=== PATIENT | male | born 1950 | race Caucasian/White ===

== ENCOUNTER 2024-01-10 08:45 | Outpatient (AMB) | payer MEDICARE, OTHER, SELFPAY ==
--- NOTE | 2024-01-10 08:47 | MHC.OFFVIS ---
Vital Signs 01/10/24 09:08 Height 6 ft 4 in Weight 250 lb BMI 30.4 BP 122/76 Blood Pressure Location Lt brachial Position Sitting Respiration 16 Pulse 104 H Pulse Source Pulse Oximeter Pulse Oximetry (%) 95 Oxygen Delivery Method Room Air Intake Visit Reasons: Chronic pain,postlaminectomy, CPRS infusion pump Intake Note: Patient comes in for initial visit was referred by primary care. Reports pain 03/20. Allergies No Known Allergies Allergy (Verified 01/10/24 09:07) HPI Comments Details: Chris is very pleasant 73 years old gentleman who presents in my office with complains on pain in lower back and sensation of burning in bilateral lower extremities. She reports that pain in bilateral lower extremity started in 2018 after a chiropractor perform some sort of manipulation on his back. Even before that he was suffering from postlaminectomy syndrome which was treated in [place] with intrathecal pain pump. His pump is 6 years old and due to be replaced in fall of 2023. He reports that he can not sleep normally can not do activities of daily living can not take care of himself can not function normally he is retired individual. He reports that he needs walker occasionally for ambulation. He reports that most comfortable position for him is in the left hand side in the bed and he also reports that when he is sitting or standing his pain in bilateral lower extremities and unbearable.He currently onadmixture of Morphine 10 mg/ ml and 30 mg of bupivacaine, as well as clonidine 650 mcg per ml. He receives continuous infusion of morphine 1.835 mg per day and corresponding doses of the clonidine and bupivacaine. He does not have PTM device. He reports that PTM device make him ?addicted to morphine ?. He reports his pain in terms of tissue damage as spreading radiating in piercing sensation. Apparently he had multiple images of his lumbar spine done in [facility] last MRI was done in 2014. He reports that he is taking herbal or homeopathic treatments for his pain. He received multiple nerve blocks epidurals and apparently he had 2 trials of spinal cord stimulator with [facility] pain management. He reports past medical history of peripheral arterial disease with status post stent in the left femoral artery, he has prostate problem arthritis. His past surgical history significant for left total knee replacement in 2008. He had surgery for back fusion in 2009 and he reported cranial surgery in 2008. He is currently taking Ambien diazepam bethanechol and lamotrigine. He denies smoking cigarettes admits occasional rare take of alcohol drinks decaffeinated coffee and denies recreational drugs. [facility] Medical History (Updated 01/10/24 @ 09:40 by Surjit Godoy MD) Opioid dependence, uncomplicated Complex regional pain syndrome i of lower limb, bilateral Insomnia, unspecified Chronic pain disorder Postlaminectomy syndrome, not elsewhere classified Review of Systems Const Denies chills and Denies fever(s) ENT Reports Normal hearing present, Denies vertigo and Denies dizziness Card Denies chest pain, Denies chest pain at rest, Denies chest pain with activity, Reports diaphoresis, Denies syncope, Denies rapid heart rate, Denies pedal edema and Denies edema Resp Denies chest congestion, Denies cough, Denies hemoptysis, Denies excessive phlegm production, Denies pain on inspiration and Denies pain with cough GI Denies abdominal pain, Denies belching, Denies melena and Denies bloating Denies urinary incontinence Musc Denies as per HPI, Denies back pain and Denies tingling Neuro Reports Normal hearing present, Denies Abnormal speech present, Denies confusion, Denies vertigo, Denies dizziness, Denies syncope, Denies lack of coordination, Denies Sensory deficit (Neuro) and Denies tingling Psych Denies no additional complaints, Denies confusion and Denies depression Physical Exam Vital Signs: Last Vital Signs Pulse 104 H 01/10/24 09:08 Resp 16 01/10/24 09:08 BP 122/76 01/10/24 09:08 Pulse Ox 95 01/10/24 09:08 Oxygen Delivery Method Room Air 01/10/24 09:08 BMI result Body Mass Index 30.4 Const General: No confusion Orientation/consciousness: No confusion Eyes General: appearance normal, both eyes and all related structures Pupils: Equal, round and reactive pupils present EOM: EOMs intact bilaterally Neck Neck: Yes full ROM Chest Chest palpation & inspection: normal inspection of the chest Resp Effort & Inspection: normal respiratory effort, able to speak in complete sentences, normal respiratory pattern, no audible wheezes and no cough Cardio Jugular venous distension: no JVD GI Inspection: Yes normal to inspection Back/Spine/Pelvis Other: He has very well-healed scar in inspection in the projection of the L4-5 and S1 vertebra spinous processes. He also has scar in the left lower abdomen in Pfannenstiel fashion evidence of 2nd fusion. He is in no obvious mild distress today he prefers to positioned himself flat on the examination table during the conversation. No tenderness on palpation in paraspinal spinal region lumbar spine. Mild tenderness on palpation in projection of the sacral bone. SLR is negative bilaterally. Asaf's test is negative bilaterally. Valsalva maneuver does not aggravate his pain. He denies incontinence with urine or stool. He denies urinary retention Neuro General: No confusion Cranial nerves: Yes Equal, round and reactive pupils present and Yes Normal hearing present Speech: No Abnormal speech present Gait exam (Neuro): Normal gait present Motor exam (neuro): 5/5 motor strength present throughout Sensory Exam: No Sensory deficit (Neuro) Extrem General: No pedal edema Psych Speech and movement: Normal speech and movement present Affect: normal affect Attitude: cooperative Thought process: Normal thought process present Thought content: Normal thought content present Insight: Good insight present (Psych) Judgement: Good judgement present (Psych) Assessment & Plan Assessment & Plan (1) Postlaminectomy syndrome: Code(s): M96.1 - Postlaminectomy syndrome, not elsewhere classified Category: Medical (2) Chronic pain disorder: Code(s): G89.4 - Chronic pain syndrome Category: Medical (3) Implantable intrathecal infusion pump present: Code(s): Z96.89 - Presence of other specified functional implants Category: Medical Plan The patient will be scheduled for the next pump refill. He will be scheduled on 28 of February. The pump is the end of life and he needs to be scheduled for pump replacement. I will see this patient on 28 of February and after that as needed. I will schedule him for pump replacement at the end of April. Coding Level of Care Code New Pt Level 3 (80320) Diagnoses Postlaminectomy syndrome M96.1 Chronic pain disorder G89.4 Implantable intrathecal infusion pump present Z96.89
[2024-01-10 09:08] VITALS: BP 122/76; PULSE 104; RESP 16; O2SAT 95; BMI 30.4
== END 2024-01-10 09:20 | disposition home or self-care (01) ==
PROVIDERS: PCP Internal Medicine; Visit Provider Anesthesiology
DX: M96.1 Postlaminectomy syndrome, not elsewhere classified (principal); G89.4 Chronic pain syndrome; Z96.89 Presence of other specified functional implants
CPT/HCPCS: 99203

== ENCOUNTER → 2024-01-10 08:45 | Outpatient (BNVA) | payer MEDICARE, OTHER, SELFPAY | PROVIDERS: PCP Internal Medicine; Visit Provider Anesthesiology | DX: M96.1 Postlaminectomy syndrome, not elsewhere classified (principal); G89.4 Chronic pain syndrome; Z96.89 Presence of other specified functional implants | CPT/HCPCS: 99202 ==

== ENCOUNTER 2024-02-29 08:33 | Outpatient (AMB) | payer MEDICARE, OTHER, SELFPAY ==
--- NOTE | 2024-02-29 08:34 | A.OFFVIS_ITS ---
Vital Signs 02/29/24 09:15 Height 6 ft 4 in Weight 242 lb 8 oz BMI 29.5 BP 116/68 Blood Pressure Location Lt brachial Position Sitting Respiration 16 Pulse 82 Pulse Source Pulse Oximeter Pulse Oximetry (%) 97 Oxygen Delivery Method Room Air Intake Visit Reasons: ITDD Pump Refill Intake Note: Patient comes in for intrathecal medication refill. Reports pain 03/20. Allergies No Known Allergies Allergy (Verified 02/29/24 09:16) HPI Comments Details: Chris is back for intrathecal pain pump refill. The pump needs to be removed and replaced in June. His next pump refill is 05/27/2024. On that visit we need to schedule him for the removal and replacement of the pump. His medication is morphine 10 milligrams/mL bupivacaine 30 milligrams/mL and clonidine 650 mcg per mL. We observed small discrepancy 2 mL between the medication left in the reservoir and medication would be left by pump calculations. I would need to schedule him for a dye study before performing pump replacement and refill very pleasant 73 years old gentleman who presents in my office with complains on pain in lower back and sensation of burning in bilateral lower extremities. She reports that pain in bilateral lower extremity started in 2017 after a chi ropractor perform some sort of manipulation on his back. Even before that he was suffering from postlaminectomy syndrome which was treated in [place] with intrathecal pain pump. His pump is 6 years old and due to be replaced in fall of 2023. He reports that he can not sleep normally can not do activities of daily living can not take care of himself can not function normally he is retired individual. He reports that he needs walker occasionally for ambulation. He reports that most comfortable position for him is in the left hand side in the bed and he also reports that when he is sitting or standing his pain in bilateral lower extremities and unbearable.He currently onadmixture of Morphine 10 mg/ ml and 30 mg of bupivacaine, as well as clonidine 650 mcg per ml. He receives continuous infusion of morphine 1.835 mg per day and corresponding doses of the clonidine and bupivacaine. He does not have PTM device. He reports that PTM device make him ?addicted to morphine ?. He repor ts his pain in terms of tissue damage as spreading radiating in piercing sensation. Apparently he had multiple images of his lumbar spine done in [facility] last MRI was done in 2014. He reports that he is taking herbal or homeopathic treatments for his pain. He received multiple nerve blocks epidurals and apparently he had 2 trials of spinal cord stimulator with [facility] pain management. He reports past medical history of peripheral arterial disease with status post stent in the left femoral artery, he has prostate problem arthritis. His past surgical history significant for left total knee replacement in 2008. He had surgery for back fusion in 2009 and he reported cranial surgery in 2008. He is currently taking Ambien diazepam bethanechol and lamotrigine. He denies smoking cigarettes admits occasional rare take of alcohol drinks decaffeinated coffee and denies recreational drugs. [facility] Medical History (Updated 01/10/24 @ 09:40 by Surjit Godoy MD) Opioid dependence, uncomplicated Complex regional pain syndrome i of lower limb, bilateral Insomnia, unspecified Chronic pain disorder Postlaminectomy syndrome, not elsewhere classified Review of Systems Const All systems reviewed & are unremarkable except as noted in HPI and below ENT Reports Normal hearing present Neuro Reports Normal hearing present, Denies Abnormal speech present, Denies confusion and Denies Sensory deficit (Neuro) Psych Denies confusion Physical Exam Vital Signs: Last Vital Signs Pulse 82 02/29/24 09:15 Resp 16 02/29/24 09:15 BP 116/68 02/29/24 09:15 Pulse Ox 97 02/29/24 09:15 Oxygen Delivery Method Room Air 02/29/24 09:15 BMI result Body Mass Index 29.5 Const General: No confusion Orientation/consciousness: No confusion Eyes General: appearance normal, both eyes and all related structures Pupils: Equal, round and reactive pupils present EOM: EOMs intact bilaterally Neck Neck: Yes full ROM Chest Chest palpation & inspection: normal inspection of the chest Resp Effort & Inspection: normal respiratory effort, able to speak in complete sentences, normal respiratory pattern, no audible wheezes and no cough Cardio Jugular venous distension: no JVD GI Inspection: Yes normal to inspection Back/Spine/Pelvis Other: He has very well-healed scar in inspection in the projection of the L4-5 and S1 vertebra spinous processes. He also has scar in the left lower abdomen in Pfannenstiel fashion evidence of 2nd fusion. He is in no obvious mild distress today he prefers to positioned himself flat on the examination table during the conversation. No tenderness on palpation in paraspinal spinal region lumbar spine. Mild tenderness on palpation in projection of the sacral bone. SLR is negative bilaterally. Asaf's test is negative bilaterally. Valsalva maneuver does not aggravate his pain. He denies incontinence with urine or stool. He denies urinary retention Neuro General: No confusion Cranial nerves: Yes Equal, round and reactive pupils present and Yes Normal hear ing present Speech: No Abnormal speech present Gait exam (Neuro): Normal gait present Motor exam (neuro): 5/5 motor strength present throughout Sensory Exam: No Sensory deficit (Neuro) Extrem General: No pedal edema Psych Speech and movement: Normal speech and movement present Affect: normal affect Attitude: cooperative Thought process: Normal thought process present Thought content: Normal thought content present Insight: Good insight present (Psych) Judgement: Good judgement present (Psych) Assessment & Plan Assessment & Plan (1) Postlaminectomy syndrome: Code(s): M96.1 - Postlaminectomy syndrome, not elsewhere classified Category: Medical (2) Chronic pain disorder: Code(s): G89.4 - Chronic pain syndrome Category: Medical Plan: Intrathecal pump refill. THE PATIENT CAME TODAY IN THE OR - PACU FOR THE CHANGE OF THE MEDICATION IN her PAIN PUMP. The name and date of were verified and informed consent was obtained for the procedure. ?The pump was interrogated and the residual amount of fluid was found to be 3.5 mL. HE WAS POSITIONED supine on the bed AND THE AREA OF THE INTRATHECAL PUMP in his left mid abdomen WAS PREPPED WITH CHLORAPREP. The fenestrated drape was sterilely applied over the area of the pump. Sterile gloves were worn and of the aspiration system was assembled containing 2 in 22 gauge noncoring needle, the needle was connected to extension tubing which was connected to the 20 cc sterile syringe. The pain pump was palpated under the skin in the patient's right buttock area. The needle was inserted through the skin and the central plug of the pain pump and fluid was aspirated. The clear fluid was going into the syringe the total amount of the fluid was 5.5 mL .. After that a new batch? of medication was obtained which was containing morphine 10 milligrams/mL, bupivacaine 30 milligrams/mL, clonidine 650 micro g per mL. The admixture was made in 20 cc syringe prepared by [facility] compounding pharmacy. The syringe was connected to the bacterial filter, and then connected to the extension tubing. After that the medication in the syringe was slowly instilled into the pump with aspirations at 15 and 5 cc sev[place].? The pump was reprogrammed for the continuous doses of morphine 1.835 mg per day with corresponding dose of bupivacaine 5.5 mg per day and corresponding dose of clonidine 119.30 micro g per mL a day. (3) Implantable intrathecal infusion pump present: Code(s): Z96.89 - Presence of other specified functional implants Category: Medical Plan Pump refill see as above. I will schedule this gentleman for new pump refill on 05/27/2024. The pump replacement t and removal will be scheduled on that day, before the pump replacement and refill I need to perform a dye study on the pump. Patient Instructions: I here by testify that I spent 30 minutes in conversation with this patient explaining to him future surgery to replace the pump, risks benefits and alternatives of the procedure as well as planning his care for the future. I need to do a dye study before the pain pump replacement surgery, I explained the nature of the dye study to the patient. Coding Level of Care Code Est Pt Level 4 (98788) Procedure Only Diagnoses Postlaminectomy syndrome M96.1 Chronic pain disorder G89.4 Implantable intrathecal infusion pump present Z96.89
[2024-02-29 09:15] VITALS: BP 116/68; PULSE 82; RESP 16; O2SAT 97; BMI 29.5
== END 2024-02-29 09:00 | disposition home or self-care (01) ==
PROVIDERS: PCP Internal Medicine; Visit Provider Anesthesiology
DX: G89.4 Chronic pain syndrome (principal); M96.1 Postlaminectomy syndrome, not elsewhere classified; Z96.89 Presence of other specified functional implants; Z45.1 Encounter for adjustment and management of infusion pump
CPT/HCPCS: 62370; 99214

== ENCOUNTER → 2024-02-29 08:33 | Outpatient (BNVA) | payer MEDICARE, OTHER, SELFPAY | PROVIDERS: PCP Internal Medicine; Visit Provider Anesthesiology | DX: Z45.1 Encounter for adjustment and management of infusion pump (principal); M96.1 Postlaminectomy syndrome, not elsewhere classified; G89.4 Chronic pain syndrome; Z79.891 Long term (current) use of opiate analgesic | CPT/HCPCS: 62370; 99212 ==

== ENCOUNTER → 2024-03-11 14:12 | Outpatient (BNVA) | payer MEDICARE, OTHER, SELFPAY | PROVIDERS: PCP Internal Medicine; Visit Provider Anesthesiology | DX: Z45.1 Encounter for adjustment and management of infusion pump (principal) | CPT/HCPCS: 99211 ==

== ENCOUNTER 2024-03-28 08:31 | Outpatient (AMB) | payer MEDICARE, OTHER, SELFPAY ==
--- NOTE | 2024-03-28 08:33 | A.OFFVIS_ITS ---
Vital Signs 03/28/24 09:16 Height 6 ft 4 in Weight 242 lb 6 oz BMI 29.5 BP 132/71 Blood Pressure Location Lt brachial Position Sitting Respiration 16 Pulse 69 Pulse Source Pulse Oximeter Pulse Oximetry (%) 96 Oxygen Delivery Method Room Air Intake Visit Reasons: PAIN PUMP ADJUSTMENT Intake Note: Patient comes in for pain pump adjustment. Reports pain 03/20. Allergies No Known Allergies Allergy (Verified 03/28/24 09:21) HPI Comments Details: Chris is back for intrathecal pain pump refill. He came today with complains on dizziness, he also reported that he was diagnose with a brain tumor and he is going to be scheduled for brain surgery. It is not clear where it his dizziness is coming from it could be as well coming from the effects of the brain tumor on the CSF dynamics, it could be also effect of the tumor itself. The nature of the tumor is unknown to me. However he requested me to decrease the doses of the medications today. He was fairly convinced that this is effect of the clonidine however we did not change the doses or concentration of clonidine on him recently. Initially I recommended him to just to take few cups of coffee during the daytime to be able to overcome the effect of the clonidine, I also recommended him to keep his legs elevated, he stated that he can not do coffee but he can not elevate his legs for a long period of time. I agreed with him to try to decrease the doses of the medications. I went from 1.835 mg a day down to 1.1 mg a day morphine, the machine demonstrated 40% reduction of the concentration. However later on the day the patient give us a call and inform that his pain is unbearable and he wants to go back to the concentration he used before. He was invited back in to my office, his pump was reread and this time to increase his dose back to 1.8 mg a day would be somehow more than 80% increase of the dose. I decided to be more careful with that and increase his dose of the medication only to 1.651 mg a day. I recommended him to go tomorrow and we will be able to restore his concentration back to 1.835 mg a day. very pleasant 73 years old gentleman who presents in my office with complains on pain in lower back and sensation of burning in bilateral lower extremities. She reports that pain in bilateral lower extremity started in 2018 after a chiropractor perform some sort of manipulation on his back. Even before that he was suffering from postlaminectomy syndrome which was treated in [place] with intrathecal pain pump. His pump is 6 years old and due to be replaced in fall of 2023. He reports that he can not sleep normally can not do activities of daily living can not take care of himself can not function normally he is retired individual. He reports that he needs walker occasionally for ambulation. He reports that most comfortable position for him is in the left hand side in the bed and he also reports that when he is sitting or standing his pain in bilateral lower extremities and unbearable.He currently onadmixture of Morphine 10 mg/ ml and 30 mg of bupivacaine, as well as clonidine 650 mcg per ml. He receives continuous infusion of morphine 1.835 mg per day and corresponding doses of the clonidine and bupivacaine. He does not have PTM device. He reports that PTM device make him ?addicted to morphine ?. He reports his pain in terms of tissue damage as spreading radiating in piercing sensation. Apparently he had multiple images of his lumbar spine done in [facility] last MRI was done in 2014. He reports that he is taking herbal or homeopathic treatments for his pain. He received multiple nerve blocks epidurals and apparently he had 2 trials of spinal cord stimulator with [facility] pain management. He reports past medical history of peripheral arterial disease with status post stent in the left femoral artery, he has prostate problem arthritis. His past surgical history significant for left total knee replacement in 2008. He had surgery for back fusion in 2009 and he reported cranial surgery in 2008. He is currently taking Ambien diazepam bethanechol and lamotrigine. He denies smoking cigarettes admits occasional rare take of alcohol drinks decaffeinated coffee and denies recreational drugs. [facility] Medical History (Updated 01/10/24 @ 09:40 by Surjit Godoy MD) Opioid dependence, uncomplicated Complex regional pain syndrome i of lower limb, bilateral Insomnia, unspecified Chronic pain disorder Postlaminectomy syndrome, not elsewhere classified Review of Systems Const All systems reviewed & are unremarkable except as noted in HPI and below ENT Reports Normal hearing present Neuro Reports Normal hearing present, Denies Abnormal speech present, Denies confusion and Denies Sensory deficit (Neuro) Psych Denies confusion Physical Exam Vital Signs: Last Vital Signs Pulse 69 03/28/24 09:16 Resp 16 07/18/24 09:16 BP 132/71 03/28/24 09:16 Pulse Ox 96 03/28/24 09:16 Oxygen Delivery Method Room Air 03/28/24 09:16 BMI result Body Mass Index 29.5 Const General: No confusion Orientation/consciousness: No confusion Eyes General: appearance normal, both eyes and all related structures Pupils: Equal, round and reactive pupils present EOM: EOMs intact bilaterally Neck Neck: Yes full ROM Chest Chest palpation & inspection: normal inspection of the chest Resp Effort & Inspection: normal respiratory effort, able to speak in complete sentences, normal respiratory pattern, no audible wheezes and no cough Cardio Jugular venous distension: no JVD GI Inspection: Yes normal to inspection Back/Spine/Pelvis Other: He has very well-healed scar in inspection in the projection of the L4-5 and S1 vertebra spinous processes. He also has scar in the left lower abdomen in Pfannenstiel fashion evidence of 2nd fusion. He is in no obvious mild distress today he prefers to positioned himself flat on the examination table during the conversation. No tenderness on palpation in paraspinal spinal region lumbar spine. Mild tenderness on palpation in projection of the sacral bone. SLR is negative bilaterally. Asaf's test is negative bilaterally. Valsalva maneuver does not aggravate his pain. He denies incontinence with urine or stool. He denies urinary retention Neuro General: No confusion Cranial nerves: Yes Equal, round and reactive pupils present and Yes Normal hearing present Speech: No Abnormal speech present Gait exam (Neuro): Normal gait present Motor exam (neuro): 5/5 motor strength present throughout Sensory Exam: No Sensory deficit (Neuro) Extrem General: No pedal edema Psych Speech and movement: Normal speech and movement present Affect: normal affect Attitude: cooperative Thought process: Normal thought process present Thought content: Normal thought content present Insight: Good insight present (Psych) Judgement: Good judgement present (Psych) Assessment & Plan Assessment & Plan (1) Postlaminectomy syndrome: Code(s): M96.1 - Postlaminectomy syndrome, not elsewhere classified Category: Medical (2) Chronic pain disorder: Code(s): G89.4 - Chronic pain syndrome Category: Medical Plan: Intrathecal pump adjustments were performed today as it is described above. (3) Implantable intrathecal infusion pump present: Code(s): Z96.89 - Presence of other specified functional implants Category: Medical Plan The patient will be back in my office tomorrow 03/29/2024 to adjust his medication to control his pain better back to 1.837 mg of morphine per day. He was not able to tolerate 40% decrease on the medication to 1.1 mg of morphine per day. I increased medication today to only 1.6 mg per day. I will increase it to full dose of 1.837 mg per day tomorrow when we will be clear that the increases safe. He is planning to have a surgery on his brain, he does not know the date. He wants to postpone the pump replacement which originally was due to be done in June of this year. This is very unfortunate and I told him to get into contact with Tono Sauceda, [employer] patient service representative and to postpone the pump alarm which is due in June for the next 6 months. I clearly explained to the patient that if he will postpone pump replacement after that the pump will not be under warranty with [employer]. Any changes or malfunction of the pump will be blamed on the patient's action. Patient Instructions: I here by testify that I spent today 45 minutes in total in conversation with this patient in person, in conversation with this patient over the telephone, as well as pump adjustments, recommendations on the lifestyle and recommendations on the end of life of the pain pump. Coding Level of Care Code Est Pt Level 5 (47245) Diagnoses Postlaminectomy syndrome M96.1 Chronic pain disorder G89.4 Implantable intrathecal infusion pump present Z96.89
[2024-03-28 09:16] VITALS: BP 132/71; PULSE 69; RESP 16; O2SAT 96; BMI 29.5
== END 2024-03-28 09:17 | disposition home or self-care (01) ==
PROVIDERS: PCP Internal Medicine; Visit Provider Anesthesiology
DX: M96.1 Postlaminectomy syndrome, not elsewhere classified (principal); G89.4 Chronic pain syndrome; Z96.89 Presence of other specified functional implants
CPT/HCPCS: 99215

== ENCOUNTER → 2024-03-28 08:31 | Outpatient (BNVA) | payer MEDICARE, OTHER, SELFPAY | PROVIDERS: PCP Internal Medicine; Visit Provider Anesthesiology | DX: M96.1 Postlaminectomy syndrome, not elsewhere classified (principal); G89.4 Chronic pain syndrome; Z45.1 Encounter for adjustment and management of infusion pump | CPT/HCPCS: 99212 ==

== ENCOUNTER 2024-03-29 08:26 | Outpatient (AMB) | payer MEDICARE, OTHER, SELFPAY ==
--- NOTE | 2024-03-29 08:31 | MHC.OFFVIS ---
Vital Signs 03/29/24 08:35 Height 6 ft 4 in Weight 242 lb BMI 29.5 BP 116/58 L Blood Pressure Location Lt brachial Position Supine Pulse 64 Pulse Source Pulse Oximeter Pulse Oximetry (%) 97 Oxygen Delivery Method Room Air Intake Visit Reasons: Pain Pump Adjustment Intake Note: Pain today 03/20 Food Quality Technician Required: No Accompanied by: Self / Same As Patient Allergies No Known Allergies Allergy (Verified 03/29/24 08:36) HPI Comments Details: Chris is back for intrathecal pain pump adjustment. Yesterday he came with a request to decrease the doses of the medication in his pump because he felt dizzy. We will decrease the doses 40% and patient started to complain on severe pain. It required 2 attempts 1 yesterday and 1 today to bring the pump to almost the same level as it was before yesterday. After today's adjustment he will be running with continuous dose of morphine equal to 1.763. His next appointment will be scheduled on 06/05/2024. Implication of the pump getting at the end of life also discussed with the patient. Patient will be thinking about it. He wants to postpone the alarm on the pump because he was discovered with brain tumor. His pump at the end of life and will be off line and start alarming at June of this year. I recommend him to go for the pump replacement 1st and have the brain surgery after that however he thinks that it will be better for him to have a brain surgery and then have pump to be adjusted very pleasant 73 years old gentleman who presents in my office with complains on pain in lower back and sensation of burning in bilateral lower extremities. She reports that pain in bilateral lower extremity started in 2017 after a chiropractor perform some sort of manipulation on his back. Even before that he was suffering from postlaminectomy syndrome which was treated in [place] with intrathecal pain pump. His pump is 6 years old and due to be replaced in fall. He reports that he can not sleep normally can not do activities of daily living can not take care of himself can not function normally he is retired individual. He reports that he needs walker occasionally for ambulation. He reports that most comfortable position for him is in the left hand side in the bed and he also reports that when he is sitting or standing his pain in bilateral lower extremities and unbearable.He currently onadmixture of Morphine 10 mg/ ml and 30 mg of bupivacaine, as well as clonidine 650 mcg per ml. He receives continuous infusion of morphine 1.835 mg per day and corresponding doses of the clonidine and bupivacaine. He does not have PTM device. He reports that PTM device make him ?addicted to morphine ?. He reports his pain in terms of tissue damage as spreading radiating in piercing sensation. Apparently he had multiple images of his lumbar spine done in [facility] last MRI was done in 2014. He reports that he is taking herbal or homeopathic treatments for his pain. He received multiple nerve blocks epidurals and apparently he had 2 trials of spinal cord stimulator with [facility] pain management. He reports past medical history of peripheral arterial disease with status post stent in the left femoral artery, he has prostate problem arthritis. His past surgical history significant for left total knee replacement in 2008. He had surgery for back fusion in 2009 and he reported cranial surgery in 2008. He is currently taking Ambien diazepam bethanechol and lamotrigine. He denies smoking cigarettes admits occasional rare take of alcohol drinks decaffeinated coffee and denies recreational drugs. [facility] Medical History (Updated 01/10/24 @ 09:40 by Surjit Godoy MD) Opioid dependence, uncomplicated Complex regional pain syndrome i of lower limb, bilateral Insomnia, unspecified Chronic pain disorder Postlaminectomy syndrome, not elsewhere classified Review of Systems Const All systems reviewed & are unremarkable except as noted in HPI and below ENT Reports Normal hearing present Neuro Reports Normal hearing present, Denies Abnormal speech present, Denies confusion and Denies Sensory deficit (Neuro) Psych Denies confusion Physical Exam Vital Signs: Last Vital Signs Pulse 64 03/29/24 08:35 BP 116/58 L 03/29/24 08:35 Pulse Ox 97 03/29/24 08:35 Oxygen Delivery Method Room Air 03/29/24 08:35 BMI result Body Mass Index 29.5 Const General: No confusion Orientation/consciousness: No confusion Eyes General: appearance normal, both eyes and all related structures Pupils: Equal, round and reactive pupils present EOM: EOMs intact bilaterally Neck Neck: Yes full ROM Chest Chest palpation & inspection: normal inspection of the chest Resp Effort & Inspection: normal respiratory effort, able to speak in complete sentences, normal respiratory pattern, no audible wheezes and no cough Cardio Jugular venous distension: no JVD GI Inspection: Yes normal to inspection Back/Spine/Pelvis Other: He has very well-healed scar in inspection in the projection of the L4-5 and S1 vertebra spinous processes. He also has scar in the left lower abdomen in Pfannenstiel fashion evidence of 2nd fusion. He is in no obvious mild distress today he prefers to positioned himself flat on the examination table during the conversation. No tenderness on palpation in paraspinal spinal region lumbar spine. Mild tenderness on palpation in projection of the sacral bone. SLR is negative bilaterally. Asaf's test is negative bilaterally. Valsalva maneuver does not aggravate his pain. He denies incontinence with urine or stool. He denies urinary retention Neuro General: No confusion Cranial nerves: Yes Equal, round and reactive pupils present and Yes Normal hearing present Speech: No Abnormal speech present Gait exam (Neuro): Normal gait present Motor exam (neuro): 5/5 motor strength present throughout Sensory Exam: No Sensory deficit (Neuro) Extrem General: No pedal edema Psych Speech and movement: Normal speech and movement present Affect: normal affect Attitude: cooperative Thought process: Normal thought process present Thought content: Normal thought content present Insight: Good insight present (Psych) Judgement: Good judgement present (Psych) Assessment & Plan Assessment & Plan (1) Postlaminectomy syndrome: Code(s): M96.1 - Postlaminectomy syndrome, not elsewhere classified Category: Medical (2) Chronic pain disorder: Code(s): G89.4 - Chronic pain syndrome Category: Medical Plan: Intrathecal pump adjustments were performed today 1 more time as it is described above. (3) Implantable intrathecal infusion pump present: Code(s): Z96.89 - Presence of other specified functional implants Category: Medical Plan The patient will be scheduled for next pump refill on 06/05/2024. He is planning to have a surgery on his brain, he does not know the date. He wants to postpone the pump replacement which originally was due to be done in June of this year. This is very unfortunate and I told him to get into contact with Tono Sauceda, [employer] insurance sales representative and to postpone the pump alarm which is due in June for the next 6 months. I clearly explained to the patient that if he will postpone pump replacement after that the pump will not be under warranty with [employer]. Any changes or malfunction of the pump will be blamed on the patient's action. Coding Level of Care Code Est Pt Level 3 (58687) Procedure Only Diagnoses Postlaminectomy syndrome M96.1 Chronic pain disorder G89.4 Implantable intrathecal infusion pump present Z96.89
[2024-03-29 08:35] VITALS: BP 116/58; PULSE 64; O2SAT 97; BMI 29.5
== END 2024-03-29 09:32 | disposition home or self-care (01) ==
PROVIDERS: PCP Internal Medicine; Visit Provider Anesthesiology
DX: M96.1 Postlaminectomy syndrome, not elsewhere classified (principal); G89.4 Chronic pain syndrome; Z96.89 Presence of other specified functional implants
CPT/HCPCS: 99213

== ENCOUNTER → 2024-03-29 08:26 | Outpatient (BNVA) | payer MEDICARE, OTHER, SELFPAY | PROVIDERS: PCP Internal Medicine; Visit Provider Anesthesiology | DX: Z45.89 Encounter for adjustment and management of other implanted devices (principal); M96.1 Postlaminectomy syndrome, not elsewhere classified; G89.4 Chronic pain syndrome | CPT/HCPCS: 99212 ==

== ENCOUNTER → 2024-06-03 08:26 | Outpatient (BNVA) | payer MEDICARE, OTHER, SELFPAY | PROVIDERS: PCP Internal Medicine; Visit Provider Anesthesiology | DX: G89.4 Chronic pain syndrome (principal); Z45.1 Encounter for adjustment and management of infusion pump | CPT/HCPCS: 62370 ==

== ENCOUNTER 2024-06-03 08:30 | Outpatient (AMB) | payer MEDICARE, OTHER, SELFPAY ==
--- NOTE | 2024-06-03 08:56 | MHC.OFFVIS ---
Vital Signs 06/03/24 09:03 Height 6 ft 4 in Weight 237 lb BMI 28.8 BP 159/71 H Blood Pressure Location Rt brachial Position Supine Respiration 15 Pulse 62 Pulse Source Pulse Oximeter Pulse Oximetry (%) 99 Oxygen Delivery Method Room Air Intake Visit Reasons: ITDD Refill Allergies No Known Allergies Allergy (Verified 06/26/24 11:11) Medication List - Last Reconciled 06/03/24 by Hawa Cao LPN diazepam 10 mg PO BID escitalopram oxalate 20 mg PO DAILY lamotrigine 200 mg PO BID omeprazole 20 mg PO DAILY zolpidem 10 mg PO BEDTIME PRN HPI HPI ITDD Refill: Details: 73-year-old male who presents today to the office for a ITDD refill. Denies any recent cough, cold, infection, fever or other significant changes in medical history since last office visit.? [facility] Medical History (Updated 01/10/24 @ 09:40 by Surjit Godoy MD) Opioid dependence, uncomplicated Complex regional pain syndrome i of lower limb, bilateral Insomnia, unspecified Chronic pain disorder Postlaminectomy syndrome, not elsewhere classified Review of Systems Const All systems reviewed & are unremarkable except as noted in HPI and below Physical Exam Vital Signs: Last Vital Signs Pulse 62 06/03/24 09:03 Resp 15 06/03/24 09:03 BP 159/71 H 06/03/24 09:03 Pulse Ox 99 06/03/24 09:03 Oxygen Delivery Method Room Air 06/03/24 09:03 BMI result Body Mass Index 28.8 General: Appears afebrile. Alert and oriented. Mood and affect appropriate. Follows and participates in conversation appropriately. Respiratory effort is unlabored. Able to transition from sit to stand unassisted. Ambulates with bilaterally normal heel strike and toe off. Office Procedures Details: The name and date of were verified, and informed consent was obtained for the procedure. The pump was interrogated, and the residual amount of fluid. 2.5 mL was expected. Patient was positioned prone on the bed and the area of the intrathecal pump was prepped with chloraprep. The fenestrated drape was sterilely applied over the area of the pump. Sterile gloves were worn and the aspiration system was assembled containing 2 22-gauge noncoring needle; the needle was connected to extension tubing which was connected to the 20-cc sterile syringe. The extension tubing was clamped. The pain pump was palpated under the skin in the patient's buttock. The needle was inserted through the skin and the central plug of the pain pump and fluid was aspirated. 4 mL of clear fluid were aspirated. After that, a new batch of medication was obtained. The admixture was premixed in a 20cc syringe by [facility] compounding pharmacy. The syringe was connected to the bacterial filter, and then connected to the extension tubing. After that, the medication in the syringe was slowly instilled into the pump with aspirations. Refilled with 20 mL of morphine, 10 mg/mL Clonidine, and bupivacaine 30 mg/mL. The pump was programmed and updated per the latest parameters. The details of this program are available in the pump log that was saved and uploaded to the EMR. 66660 - Refill Procedure code (CPT) selection complete Results Reviewed Results Reviewed: No imaging is available for review. Assessment & Plan Assessment & Plan (1) Implantable intrathecal infusion pump present: Code(s): Z96.89 - Presence of other specified functional implants Category: Medical (2) Chronic pain disorder: Code(s): G89.4 - Chronic pain syndrome Category: Medical Plan Patient is status post intrathecal pump relief. Patient tolerated procedure well and was discharged home in stable condition with discharge instructions.? All questions were answered. His next refill date is 10/05/24.? Patient reports that his pain pump is at the end of its life and would like to schedule a replacement surgery. I informed him that I would forward this information to Dr. Godoy. We will be in touch to schedule his pump replacement surgery as per the indicated schedule.? Scribed for Dr. Parker by Otto Fischer medical microbiologist, on 06/03/2024. I, Dr. Parker, have personally reviewed and agree with the information entered by the scribe. Coding Level of Care Code Procedure Only Diagnoses Implantable intrathecal infusion pump present Z96.89 Chronic pain disorder G89.4 CPT Codes Intraethecal Drug Delivery System - CPT: 06314 - Refill ([id number])
[2024-06-03 09:03] VITALS: BP 159/71; PULSE 62; RESP 15; O2SAT 99; BMI 28.8
== END 2024-06-03 09:36 | disposition home or self-care (01) ==
LOC: HO.PMC 08:30
PROVIDERS: PCP Internal Medicine; Visit Provider Internal Medicine
DX: G89.4 Chronic pain syndrome (principal); Z96.89 Presence of other specified functional implants
CPT/HCPCS: 62370

== ENCOUNTER 2024-06-17 08:50 | Outpatient (AMB) | payer MEDICARE, OTHER, SELFPAY ==
--- NOTE | 2024-06-17 08:53 | A.OFFVIS_ITS ---
Vital Signs 06/17/24 08:59 Height 6 ft 4 in Weight 235 lb BMI 28.6 BP 115/77 Blood Pressure Location Rt brachial Position Sitting Pulse 98 Pulse Source Pulse Oximeter Pulse Oximetry (%) 98 Oxygen Delivery Method Room Air Intake Visit Reasons: ITDD replacement discussion Intake Note: Pain today 04/20 Photo Lab Manager Required: No Accompanied by: Self / Same As Patient Allergies No Known Allergies Allergy (Verified 06/17/24 08:59) HPI Comments Details: Chris is back for for discussion of his pump replacement. He complains mostly on burning pain in bilateral lower extremities. He states that the pain in the back is well covered by his pain pump. At the end of the July pump will start to alarm. I decided to schedule dye study 1st to make sure that the catheter is appropriately positioned and working because otherwise I need to replace the catheter as well as the pump. When pump will start to alarm I will schedule him for appointment with [employer] representatives so the alarm can not be turned off. 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 Gregorio from [facility]. We will obtain summary of care from ' office. very pleasant 73 years old gentleman who presents in my office with complains on pain in lower back and sensation of burning in bilateral lower extremities. She reports that pain in bilateral lower extremity started in 2018 after a chiropractor perform some sort of manipulation on his back. Even before that he was suffering from postlaminectomy syndrome which was treated in [place] with intrathecal pain pump. His pump is 6 years old and due to be replaced in fall of 2023. He reports that he can not sleep normally can not do activities of daily living can not take care of himself can not function normally he is retired individual. He reports that he needs walker occasionally for ambulation. He reports that most comfortable position for him is in the left hand side in the bed and he also reports that when he is sitting or standing his pain in bilateral lower extremities and unbearable.He currently onadmixture of Morphine 10 mg/ ml and 30 mg of bupivacaine, as well as clonidine 650 mcg per ml. He receives continuous infusion of morphine 1.835 mg per day and corresponding doses of the clonidine and bupivacaine. He does not have PTM device. He reports that PTM device make him ?addicted to morphine ?. He reports his pain in terms of tissue damage as spreading radiating in piercing sensation. Apparently he had multiple images of his lumbar spine done in [facility] last MRI was done in 2014. He reports that he is taking herbal or homeopathic treatments for his pain. He received multiple nerve blocks epidurals and apparently he had 2 trials of spinal cord stimulator with [facility] pain management. He reports past medical history of peripheral arterial disease with status post stent in the left femoral artery, he has prostate problem arthritis. His past surgical history significant for left total knee replacement in 2008. He had surgery for back fusion in 2009 and he reported cranial surgery in 2008. He is currently taking Ambien diazepam bethanechol and lamotrigine. He denies smoking cigarettes admits occasional rare take of alcohol drinks decaffeinated coffee and denies recreational drugs. [facility] Medical History (Updated 01/10/24 @ 09:40 by Surjit Godoy MD) Opioid dependence, uncomplicated Complex regional pain syndrome i of lower limb, bilateral Insomnia, unspecified Chronic pain disorder Postlaminectomy syndrome, not elsewhere classified Review of Systems ENT Reports Normal hearing present Neuro Reports Normal hearing present, Denies Abnormal speech present, Denies confusion and Denies Sensory deficit (Neuro) Psych Denies confusion Physical Exam Vital Signs: Last Vital Signs Pulse 98 06/17/24 08:59 BP 115/77 06/17/24 08:59 Pulse Ox 98 06/17/24 08:59 Oxygen Delivery Method Room Air 06/17/24 08:59 BMI result Body Mass Index 28.6 Const General: No confusion Orientation/consciousness: No confusion Eyes General: appearance normal, both eyes and all related structures Pupils: Equal, round and reactive pupils present EOM: EOMs intact bilaterally Neck Neck: Yes full ROM Chest Chest palpation & inspection: normal inspection of the chest Resp Effort & Inspection: normal respiratory effort, able to speak in complete sentences, normal respiratory pattern, no audible wheezes and no cough Cardio Jugular venous distension: no JVD GI Inspection: Yes normal to inspection Back/Spine/Pelvis Other: He has very well-healed scar in inspection in the projection of the L4-5 and S1 vertebra spinous processes. He also has scar in the left lower abdomen in Pfannenstiel fashion evidence of 2nd fusion. He is in no obvious mild distress today he prefers to positioned himself flat on the examination table during the conversation. No tenderness on palpation in paraspinal spinal region lumbar spine. Mild tenderness on palpation in projection of the sacral bone. SLR is negative bilaterally. Asaf's test is negative bilaterally. Valsalva maneuver does not aggravate his pain. He denies incontinence with urine or stool. He denies urinary retention Neuro General: No confusion Cranial nerves: Yes Equal, round and reactive pupils present and Yes Normal hearing present Speech: No Abnormal speech present Gait exam (Neuro): Normal gait present Motor exam (neuro): 5/5 motor strength present throughout Sensory Exam: No Sensory deficit (Neuro) Extrem General: No pedal edema Psych Speech and movement: Normal speech and movement present Affect: normal affect Attitude: cooperative Thought process: Normal thought process present Thought content: Normal thought content present Insight: Good insight present (Psych) Judgement: Good judgement present (Psych) Assessment & Plan Assessment & Plan (1) Postlaminectomy syndrome: Code(s): M96.1 - Postlaminectomy syndrome, not elsewhere classified Category: Medical (2) Chronic pain disorder: Code(s): G89.4 - Chronic pain syndrome Category: Medical (3) Implantable intrathecal infusion pump present: Code(s): Z96.89 - Presence of other specified functional implants Category: Medical Plan The pump is at the end of its life. And needs to be replaced. I will schedule a dye study jaquelin. I will also obtain information from [facility] Oncology Dr. Francisco, radiation Oncol rosa maria. The pump refill is scheduled today he has 17 cc in his pump. Patient Instructions: I here by testify that I spent 35 minutes in conversation with this patient as well as planning his care and organizing this note. Coding Level of Care Code Est Pt Level 4 (85129) Diagnoses Postlaminectomy syndrome M96.1 Chronic pain disorder G89.4 Implantable intrathecal infusion pump present Z96.89
[2024-06-17 08:59] VITALS: BP 115/77; PULSE 98; O2SAT 98; BMI 28.6
== END 2024-06-17 09:13 | disposition home or self-care (01) ==
PROVIDERS: PCP Internal Medicine; Visit Provider Anesthesiology
DX: M96.1 Postlaminectomy syndrome, not elsewhere classified (principal); G89.4 Chronic pain syndrome; Z96.89 Presence of other specified functional implants
CPT/HCPCS: 99214

== ENCOUNTER → 2024-06-17 08:50 | Outpatient (BNVA) | payer MEDICARE, OTHER, SELFPAY | PROVIDERS: PCP Internal Medicine; Visit Provider Anesthesiology | DX: M96.1 Postlaminectomy syndrome, not elsewhere classified (principal); G89.4 Chronic pain syndrome; G90.523 Complex regional pain syndrome I of lower limb, bilateral; Z96.82 Presence of neurostimulator | CPT/HCPCS: 99212 ==

== ENCOUNTER 2024-06-25 06:19 | Outpatient (REF) | payer MEDICARE, OTHER, SELFPAY | END 2024-06-25 06:20 | disposition home or self-care (01) | LOC: CF 06:19 | PROVIDERS: Visit Provider Anesthesiology | DX: M96.1 Postlaminectomy syndrome, not elsewhere classified (principal); G89.4 Chronic pain syndrome; Z96.89 Presence of other specified functional implants | CPT/HCPCS: 61070; Q9967 ==

== ENCOUNTER 2024-06-25 09:05 | Outpatient (AMB) | payer MEDICARE, OTHER, SELFPAY ==
--- NOTE | 2024-06-25 09:13 | MHC.OFFVIS ---
Vital Signs 06/25/24 09:57 06/25/24 10:03 Height 6 ft 4 in 6 ft 4 in Weight 235 lb 235 lb BMI 28.6 28.6 BP 125/70 150/78 H Blood Pressure Location Lt brachial Lt brachial Position Sitting Sitting Respiration 14 14 Pulse 68 68 Pulse Source Pulse Oximeter Pulse Oximeter Pulse Oximetry (%) 99 99 Oxygen Delivery Method Room Air Room Air Comment pre-op post-op Intake Visit Reasons: LEFT PAIN PUMP CATHETER DYE STUDY Allergies No Known Allergies Allergy (Verified 06/25/24 09:13) [facility] Medical History (Updated 01/10/24 @ 09:40 by Surjit Godoy MD) Opioid dependence, uncomplicated Complex regional pain syndrome i of lower limb, bilateral Insomnia, unspecified Chronic pain disorder Postlaminectomy syndrome, not elsewhere classified Physical Exam Vital Signs: Last Vital Signs Pulse 68 06/25/24 10:03 Resp 14 06/25/24 10:03 BP 150/78 H 06/25/24 10:03 Pulse Ox 99 06/25/24 10:03 Oxygen Delivery Method Room Air 06/25/24 10:03 BMI result Body Mass Index 28.6 Assessment & Plan Assessment & Plan (1) Postlaminectomy syndrome: Code(s): M96.1 - Postlaminectomy syndrome, not elsewhere classified Category: Medical (2) Chronic pain disorder: Code(s): G89.4 - Chronic pain syndrome Category: Medical (3) Implantable intrathecal infusion pump present: Code(s): Z96.89 - Presence of other specified functional implants Category: Medical Plan Intrathecal pain pump spinal catheter dye study. Informed consent was thoroughly explained to the patient before the procedure.? The patient came to the operating room.? She was positioned supine on operating table with the left side slightly elevated.? Time-out was performed delineating correct site and side of the procedure, nature of the injection, name and date of of the patient. The left side of the abdomen of the patient was prepped with ChloraPrep and draped with sterile utility towels.? C-arm was brought over the operating field and picture of the intrathecal pain pump was demonstrated on the screen. The side port was chosen as the target of the injection. 25 gauge 1-1/2 inch noncoring needle was inserted through the skin and advanced to the side port of the pump on the anterior posterior view. When the silicone plug of the side port was felt the needle was advanced slightly further and the catheter connected to the needle was aspirated. Unfortunately there were no fluid aspirated into the syringe. The needle was removed. Band-Aid was applied. The patient was explained that potentially he would need to go for total revision of the both intrathecal catheter and removal and replacement of the intrathecal pain pump. Patient expressed understanding. Coding Level of Care Code Procedure Only Diagnoses Postlaminectomy syndrome M96.1 Chronic pain disorder G89.4 Implantable intrathecal infusion pump present Z96.89
[2024-06-25 09:57] VITALS: BP 125/70; PULSE 68; RESP 14; O2SAT 99; BMI 28.6
[2024-06-25 10:03] VITALS: BP 150/78; PULSE 68; RESP 14; O2SAT 99; BMI 28.6
== END 2024-06-25 09:44 | disposition home or self-care (01) ==
LOC: HO.PMCPRC 09:05
PROVIDERS: PCP Internal Medicine; Visit Provider Anesthesiology
DX: M96.1 Postlaminectomy syndrome, not elsewhere classified (principal); G89.4 Chronic pain syndrome; Z45.1 Encounter for adjustment and management of infusion pump
CPT/HCPCS: 61070; 75809

== ENCOUNTER 2024-06-26 10:57 | Outpatient (AMB) | payer MEDICARE, OTHER, SELFPAY ==
--- NOTE | 2024-06-26 11:03 | MHC.OFFVIS ---
Vital Signs 06/26/24 11:10 Height 6 ft 4 in Weight 235 lb BMI 28.6 BP 130/70 Blood Pressure Location Lt brachial Position Sitting Respiration 16 Pulse 68 Pulse Source Pulse Oximeter Pulse Oximetry (%) 99 Oxygen Delivery Method Room Air Intake Visit Reasons: Follow Up Intake Note: patient comes in for follow up. Reports pain 05/21. Allergies No Known Allergies Allergy (Verified 06/26/24 11:11) HPI Comments Details: Chris is back for the pump adjustment. Yesterday we attempted to perform intrathecal catheter dye study unfortunately I was not able to aspirate anything from the side port. Therefore possibility of exploration of the intrathecal catheter and removal and replacement of the old intrathecal catheter exists. I will schedule him for the pump replacement. He reported today that his pain is unbearable and very severe. I told him that can increase the level of his pain pump, the device was interrogated and the dose was increased to 2.5 mg a day. We will schedule him for pump removal and replacement with right lateral decubitus position and preparation ready to go for intrathecal catheter exploration. very pleasant 73 years old gentleman who presents in my office with complains on pain in lower back and sensation of burning in bilateral lower extremities. She reports that pain in bilateral lower extremity started in 2018 after a chiropractor perform some sort of manipulation on his back. Even before that he was suffering from postlaminectomy syndrome which was treated in [place] with intrathecal pain pump. His pump is 6 years old and due to be replaced in fall of 2023. He reports that he can not sleep normally can not do activities of daily living can not take care of himself can not function normally he is retired individual. He reports that he needs walker occasionally for ambulation. He reports that most comfortable position for him is in the left hand side in the bed and he also reports that when he is sitting or standing his pain in bilateral lower extremities and unbearable.He currently onadmixture of Morphine 10 mg/ ml and 30 mg of bupivacaine, as well as clonidine 650 mcg per ml. He receives continuous infusion of morphine 1.835 mg per day and corresponding doses of the clonidine and bupivacaine. He does not have PTM device. He reports that PTM device make him ?addicted to morphine ?. He reports his pain in terms of tissue damage as spreading radiating in piercing sensation. Apparently he had multiple images of his lumbar spine done in [facility] last MRI was done in 2014. He reports that he is taking herbal or homeopathic treatments for his pain. He received multiple nerve blocks epidurals and apparently he had 2 trials of spinal cord stimulator with [facility] pain management. He reports past medical history of peripheral arterial disease with status post stent in the left femoral artery, he has prostate problem arthritis. His past surgical history significant for left total knee replacement in 2008. He had surgery for back fusion in 2009 and he reported cranial surgery in 2008. He is currently taking Ambien diazepam bethanechol and lamotrigine. He denies smoking cigarettes admits occasional rare take of alcohol drinks decaffeinated coffee and denies recreational drugs. [facility] Medical History (Updated 01/10/24 @ 09:40 by Surjit Godoy MD) Opioid dependence, uncomplicated Complex regional pain syndrome i of lower limb, bilateral Insomnia, unspecified Chronic pain disorder Postlaminectomy syndrome, not elsewhere classified Review of Systems Const All systems reviewed & are unremarkable except as noted in HPI and below ENT Reports Normal hearing present Neuro Reports Normal hearing present, Denies Abnormal speech present, Denies confusion and Denies Sensory deficit (Neuro) Psych Denies confusion Physical Exam Vital Signs: Last Vital Signs Pulse 68 06/26/24 11:10 Resp 16 06/26/24 11:10 BP 130/70 06/26/24 11:10 Pulse Ox 99 06/26/24 11:10 Oxygen Delivery Method Room Air 06/26/24 11:10 BMI result Body Mass Index 28.6 Const General: No confusion Orientation/consciousness: No confusion Eyes General: appearance normal, both eyes and all related structures Pupils: Equal, round and reactive pupils present EOM: EOMs intact bilaterally Neck Neck: Yes full ROM Chest Chest palpation & inspection: normal inspection of the chest Resp Effort & Inspection: normal respiratory effort, able to speak in complete sentences, normal respiratory pattern, no audible wheezes and no cough Cardio Jugular venous distension: no JVD GI Inspection: Yes normal to inspection Back/Spine/Pelvis Other: He has very well-healed scar in inspection in the projection of the L4-5 and S1 vertebra spinous processes. He also has scar in the left lower abdomen in Pfannenstiel fashion evidence of 2nd fusion. He is in no obvious mild distress today he prefers to positioned himself flat on the examination table during the conversation. No tenderness on palpation in paraspinal spinal region lumbar spine. Mild tenderness on palpation in projection of the sacral bone. SLR is negative bilaterally. Asaf's test is negative bilaterally. Valsalva maneuver does not aggravate his pain. He denies incontinence with urine or stool. He denies urinary retention Neuro General: No confusion Cranial nerves: Yes Equal, round and reactive pupils present and Yes Normal hearing present Speech: No Abnormal speech present Gait exam (Neuro): Normal gait present Motor exam (neuro): 5/5 motor strength present throughout Sensory Exam: No Sensory deficit (Neuro) Extrem General: No pedal edema Psych Speech and movement: Normal speech and movement present Affect: normal affect Attitude: cooperative Thought process: Normal thought process present Thought content: Normal thought content present Insight: Good insight present (Psych) Judgement: Good judgement present (Psych) Assessment & Plan Assessment & Plan (1) Postlaminectomy syndrome: Code(s): M96.1 - Postlaminectomy syndrome, not elsewhere classified Category: Medical (2) Chronic pain disorder: Code(s): G89.4 - Chronic pain syndrome Category: Medical (3) Implantable intrathecal infusion pump present: Code(s): Z96.89 - Presence of other specified functional implants Category: Medical Plan: Intrathecal pain pump was interrogated and the dose of the daily opioids was increased to 2.5 mg of morphine with corresponding doses of clonidine and bupivacaine. Plan The pump is at the end of its life. And needs to be replaced. Dye study unable to perform the were no CSF aspirated. I will schedule him for pump replacement and with the positioned patient will be to be ready for the intrathecal catheter exploration if there is no CSF output after revision of the pump pocket. The pump refill will be scheduled on 08/22/2024. If the surgery will be scheduled sooner than that we need to obtain new batch of his medications. Coding Level of Care Code Est Pt Level 3 (76999) Diagnoses Postlaminectomy syndrome M96.1 Chronic pain disorder G89.4 Implantable intrathecal infusion pump present Z96.89
[2024-06-26 11:10] VITALS: BP 130/70; PULSE 68; RESP 16; O2SAT 99; BMI 28.6
== END 2024-06-26 11:19 | disposition home or self-care (01) ==
PROVIDERS: PCP Internal Medicine; Visit Provider Anesthesiology
DX: M96.1 Postlaminectomy syndrome, not elsewhere classified (principal); G89.4 Chronic pain syndrome; Z96.89 Presence of other specified functional implants
CPT/HCPCS: 99213

== ENCOUNTER → 2024-06-26 10:57 | Outpatient (BNVA) | payer MEDICARE, OTHER, SELFPAY | PROVIDERS: PCP Internal Medicine; Visit Provider Anesthesiology | DX: M96.1 Postlaminectomy syndrome, not elsewhere classified (principal); G89.4 Chronic pain syndrome; Z96.89 Presence of other specified functional implants | CPT/HCPCS: 99212 ==

== ENCOUNTER 2024-07-03 08:50 | Outpatient (AMB) | payer MEDICARE, OTHER, SELFPAY ==
[2024-07-03 08:57] VITALS: BP 147/66; PULSE 73; O2SAT 98; BMI 28.4
--- NOTE | 2024-07-03 08:57 | MHC.OFFVIS ---
Vital Signs 07/03/24 08:57 Height 6 ft 4 in Weight 233 lb BMI 28.4 BP 147/66 H Blood Pressure Location Rt brachial Position Sitting Pulse 73 Pulse Source Pulse Oximeter Pulse Oximetry (%) 98 Oxygen Delivery Method Room Air Intake Visit Reasons: Pump medication concerns Allergies No Known Allergies Allergy (Verified 06/26/24 11:11) HPI Comments Details: Chris is back for the pump adjustment. He reported that last time increased continuous dose of the opioid medication which was 2.5 mg a day caused him to have significant nausea and weakness. He came today with request to decrease his dose of the opioid medication. I decreased it to 1.9 milligrams/mL. Prior: we attempted to perform intrathecal catheter dye study unfortunately I was not able to aspirate anything from the side port. Therefore possibility of exploration of the intrathecal catheter and removal and replacement of the old intrathecal catheter exists. I will schedule him for the pump replacement. We are still waiting for his insurance company supplemental to approve 20% coverage for this procedure. very pleasant 73 years old gentleman who presents in my office with complains on pain in lower back and sensation of burning in bilateral lower extremities. She reports that pain in bilateral lower extremity started in 2018 after a chiropractor perform some sort of manipulation on his back. Even before that he was suffering from postlaminectomy syndrome which was treated in [place] with intrathecal pain pump. His pump is 6 years old and due to be replaced in fall of 2023. He reports that he can not sleep normally can not do activities of daily living can not take care of himself can not function normally he is retired individual. He reports that he needs walker occasionally for ambulation. He reports that most comfortable position for him is in the left hand side in the bed and he also reports that when he is sitting or standing his pain in bilateral lower extremities and unbearable.He currently onadmixture of Morphine 10 mg/ ml and 30 mg of bupivacaine, as well as clonidine 650 mcg per ml. He receives continuous infusion of morphine 1.835 mg per day and corresponding doses of the clonidine and bupivacaine. He does not have PTM device. He reports that PTM device make him ?addicted to morphine ?. He reports his pain in terms of tissue damage as spreading radiating in piercing sensation. Apparently he had multiple images of his lumbar spine done in [facility] last MRI was done in 2014. He reports that he is taking herbal or homeopathic treatments for his pain. He received multiple nerve blocks epidurals and apparently he had 2 trials of spinal cord stimulator with [facility] pain management. He reports past medical history of peripheral arterial disease with status post stent in the left femoral artery, he has prostate problem arthritis. His past surgical history significant for left total knee replacement in 2008. He had surgery for back fusion in 2009 and he reported cranial surgery in 2008. He is currently taking Ambien diazepam bethanechol and lamotrigine. He denies smoking cigarettes admits occasional rare take of alcohol drinks decaffeinated coffee and denies recreational drugs. [facility] Medical History (Updated 01/10/24 @ 09:40 by Surjit Godoy MD) Opioid dependence, uncomplicated Complex regional pain syndrome i of lower limb, bilateral Insomnia, unspecified Chronic pain disorder Postlaminectomy syndrome, not elsewhere classified Review of Systems Const All systems reviewed & are unremarkable except as noted in HPI and below ENT Reports Normal hearing present Neuro Reports Normal hearing present, Denies Abnormal speech present, Denies confusion and Denies Sensory deficit (Neuro) Psych Denies confusion Physical Exam Vital Signs: Last Vital Signs Pulse 73 07/03/24 08:57 BP 147/66 H 07/03/24 08:57 Pulse Ox 98 07/03/24 08:57 Oxygen Delivery Method Room Air 07/03/24 08:57 BMI result Body Mass Index 28.4 Const General: No confusion Orientation/consciousness: No confusion Eyes General: appearance normal, both eyes and all related structures Pupils: Equal, round and reactive pupils present EOM: EOMs intact bilaterally Neck Neck: Yes full ROM Chest Chest palpation & inspection: normal inspection of the chest Resp Effort & Inspection: normal respiratory effort, able to speak in complete sentences, normal respiratory pattern, no audible wheezes and no cough Cardio Jugular venous distension: no JVD GI Inspection: Yes normal to inspection Back/Spine/Pelvis Other: He has very well-healed scar in inspection in the projection of the L4-5 and S1 vertebra spinous processes. He also has scar in the left lower abdomen in Pfannenstiel fashion evidence of 2nd fusion. He is in no obvious mild distress today he prefers to positioned himself flat on the examination table during the conversation. No tenderness on palpation in paraspinal spinal region lumbar spine. Mild tenderness on palpation in projection of the sacral bone. SLR is negative bilaterally. Asaf's test is negative bilaterally. Valsalva maneuver does not aggravate his pain. He denies incontinence with urine or stool. He denies urinary retention Neuro General: No confusion Cranial nerves: Yes Equal, round and reactive pupils present and Yes Normal hearing present Speech: No Abnormal speech present Gait exam (Neuro): Normal gait present Motor exam (neuro): 5/5 motor strength present throughout Sensory Exam: No Sensory deficit (Neuro) Extrem General: No pedal edema Psych Speech and movement: Normal speech and movement present Affect: normal affect Attitude: cooperative Thought process: Normal thought process present Thought content: Normal thought content present Insight: Good insight present (Psych) Judgement: Good judgement present (Psych) Assessment & Plan Assessment & Plan (1) Postlaminectomy syndrome: Code(s): M96.1 - Postlaminectomy syndrome, not elsewhere classified Category: Medical (2) Chronic pain disorder: Code(s): G89.4 - Chronic pain syndrome Category: Medical (3) Implantable intrathecal infusion pump present: Code(s): Z96.89 - Presence of other specified functional implants Category: Medical Plan: Intrathecal pain pump was interrogated and the dose of the daily opioids was increased to 2.5 mg of morphine with corresponding doses of clonidine and bupivacaine. Plan The pump is at the end of its life. And needs to be replaced. We are waiting for insurance company approval to get this coverage for 20% of the part Medicare does not cover. Dye study unable to perform the were no CSF aspirated. I will schedule him for pump replacement and with the positioned patient will be to be ready for the intrathecal catheter exploration if there is no CSF output after revision of the pump pocket. The pump refill will be scheduled on 08/22/2024. If patient will continue to complain he is welcome to come back and we will do another pump adjustment. Coding Level of Care Code Est Pt Level 3 (55199) Diagnoses Postlaminectomy syndrome M96.1 Chronic pain disorder G89.4 Implantable intrathecal infusion pump present Z96.89
== END 2024-07-03 10:07 | disposition home or self-care (01) ==
PROVIDERS: PCP Internal Medicine; Visit Provider Anesthesiology
DX: M96.1 Postlaminectomy syndrome, not elsewhere classified (principal); G89.4 Chronic pain syndrome; Z96.89 Presence of other specified functional implants
CPT/HCPCS: 99213

== ENCOUNTER → 2024-07-03 08:50 | Outpatient (BNVA) | payer MEDICARE, OTHER, SELFPAY | PROVIDERS: PCP Internal Medicine; Visit Provider Anesthesiology | DX: Z45.89 Encounter for adjustment and management of other implanted devices (principal); M96.1 Postlaminectomy syndrome, not elsewhere classified; G89.4 Chronic pain syndrome | CPT/HCPCS: 99212 ==

== ENCOUNTER 2024-07-18 08:57 | Outpatient (AMB) | payer MEDICARE, OTHER, SELFPAY ==
--- NOTE | 2024-07-18 09:00 | A.OFFVIS_ITS ---
Vital Signs 07/18/24 09:08 Height 6 ft 4 in Weight 233 lb BMI 28.4 BP 122/58 L Blood Pressure Location Lt brachial Position Sitting Respiration 16 Pulse 69 Pulse Source Pulse Oximeter Pulse Oximetry (%) 96 Oxygen Delivery Method Room Air Intake Visit Reasons: PAIN PUMP ADJUSTMENT Intake Note: Patient comes in for ITDD pump adjustment. Report pain 05/21. Allergies No Known Allergies Allergy (Verified 07/18/24 09:09) HPI Comments Details: Chris is back for the pump adjustment. He continues to complain on pain level elevated however he continues to endorse weakness nausea vomiting and numbness which are possibly side effects of the bupivacaine. However side effects of clonidine as weakness and dizziness could not be eliminated. Last time he was in my office and I decreased his continuous dose of opioid medications to 1.9 mg per day. Today the pump was read and I decrease the dose to 1.4 mg per day. I am sure patient will experience more pain with this combination of the medications. I offered him to eliminate bupivacaine and clonidine from admixture. We will miller this medication in and we will refill it the soon as medication ready. After that I will continue observation. He is due for pump replacement in September. I also will make sure that the pump he will receive will be 40 cc pump instead of 20 cc he is having now. Conversation about Prialt ensued. He has no history of psychosis and no history of systemic neurological conditions. I think it would be a good medication as alone medication or as an addition to morphine. Prior: we attempted to perform intrathecal catheter dye study unfortunately I was not able to aspirate anything from the side port. Therefore possibility of exploration of the intrathecal catheter and removal and replacement of the old intrathecal catheter exists. I will schedule him for the pump replacement. We are still waiting for his insurance company supplemental to approve 20% coverage for this procedure. very pleasant 73 years old gentleman who presents in my office with complains on pain in lower back and sensation of burning in bilateral lower extremities. She reports that pain in bilateral lower extremity started in 2018 after a chiropractor perform some sort of manipulation on his back. Even before that he was suffering from postlaminectomy syndrome which was treated in [place] with intrathecal pain pump. His pump is 6 years old and due to be replaced in fall of 2023. He reports that he can not sleep normally can not do activities of daily living can not take care of himself can not function normally he is retired individual. He reports that he needs walker occasionally for ambulation. He reports that most comfortable position for him is in the left hand side in the bed and he also reports that when he is sitting or standing his pain in bilateral lower extremities and unbearable.He currently onadmixture of Morphine 10 mg/ ml and 30 mg of bupivacaine, as well as clonidine 650 mcg per ml. He receives continuous infusion of morphine 1.835 mg per day and corresponding doses of the clonidine and bupivacaine. He does not have PTM device. He reports that PTM device make him ?addicted to morphine ?. He reports his pain in terms of tissue damage as spreading radiating in piercing sensation. Apparently he had multiple images of his lumbar spine done in [facility] last MRI was done in 2014. He reports that he is taking herbal or homeopathic treatments for his pain. He received multiple nerve blocks epidurals and apparently he had 2 trials of spinal cord stimulator with [facility] pain management. He reports past medical history of peripheral arterial disease with status post stent in the left femoral artery, he has prostate problem arthritis. His past surgical history significant for left total knee replacement in 2008. He had surgery for back fusion in 2009 and he reported cranial surgery in 2008. He is currently taking Ambien diazepam bethanechol and lamotrigine. He denies smoking cigarettes admits occasional rare take of alcohol drinks decaffeinated coffee and denies recreational drugs. [facility] Medical History (Updated 01/10/24 @ 09:40 by Surjit Godoy MD) Opioid dependence, uncomplicated Complex regional pain syndrome i of lower limb, bilateral Insomnia, unspecified Chronic pain disorder Postlaminectomy syndrome, not elsewhere classified Review of Systems Const All systems reviewed & are unremarkable except as noted in HPI and below ENT Reports Normal hearing present Neuro Reports Normal hearing present, Denies Abnormal speech present, Denies confusion and Denies Sensory deficit (Neuro) Psych Denies confusion Physical Exam Vital Signs: Last Vital Signs Pulse 69 07/18/24 09:08 Resp 16 07/18/24 09:08 BP 122/58 L 07/18/24 09:08 Pulse Ox 96 07/18/24 09:08 Oxygen Delivery Method Room Air 07/18/24 09:08 BMI result Body Mass Index 28.4 Const General: No confusion Orientation/consciousness: No confusion Eyes General: appearance normal, both eyes and all related structures Pupils: Equal, round and reactive pupils present EOM: EOMs intact bilaterally Neck Neck: Yes full ROM Chest Chest palpation & inspection: normal inspection of the chest Resp Effort & Inspection: normal respiratory effort, able to speak in complete sentences, normal respiratory pattern, no audible wheezes and no cough Cardio Jugular venous distension: no JVD GI Inspection: Yes normal to inspection Back/Spine/Pelvis Other: He has very well-healed scar in inspection in the projection of the L4-5 and S1 vertebra spinous processes. He also has scar in the left lower abdomen in Pfannenstiel fashion evidence of 2nd fusion. He is in no obvious mild distress today he prefers to positioned himself flat on the examination table during the conversation. No tenderness on palpation in paraspinal spinal region lumbar spine. Mild tenderness on palpation in projection of the sacral bone. SLR is negative bilaterally. Asaf's test is negative bilaterally. Valsalva maneuver does not aggravate his pain. He denies incontinence with urine or stool. He denies urinary retention Neuro General: No confusion Cranial nerves: Yes Equal, round and reactive pupils present and Yes Normal hearing present Speech: No Abnormal speech present Gait exam (Neuro): Normal gait present Motor exam (neuro): 5/5 motor strength present throughout Sensory Exam: No Sensory deficit (Neuro) Extrem General: No pedal edema Psych Speech and movement: Normal speech and movement present Affect: normal affect Attitude: cooperative Thought process: Normal thought process present Thought content: Normal thought content present Insight: Good insight present (Psych) Judgement: Good judgement present (Psych) Assessment & Plan Assessment & Plan (1) Postlaminectomy syndrome: Code(s): M96.1 - Postlaminectomy syndrome, not elsewhere classified Category: Medical (2) Chronic pain disorder: Code(s): G89.4 - Chronic pain syndrome Category: Medical (3) Implantable intrathecal infusion pump present: Code(s): Z96.89 - Presence of other specified functional implants Category: Medical Plan: Intrathecal pain pump was interrogated and the dose of the daily morphine was decreased from 1.9 mg per day to 1.4 mg per day. The corresponding doses of the bupivacaine and clonidine are decreased as well. We will miller for new batch of the medication containing morphine alone. After that I will start to escalate the doses of the morphine. In September I will replace his pain pump was newer SynchroMed 3 model 40 cc pump. Exploration of the intrathecal catheter is possible in the case and new intrathecal catheter will be inserted if this 1 is not functioning. Plan The pump will be refilled as soon as possible when new medication without bupivacaine and clonidine available. Prialt was discussed as well today. The patient might be able to afford Prialt. Coding Level of Care Code Est Pt Level 3 (90176) Procedure Only Diagnoses Postlaminectomy syndrome M96.1 Chronic pain disorder G89.4 Implantable intrathecal infusion pump present Z96.89
[2024-07-18 09:08] VITALS: BP 122/58; PULSE 69; RESP 16; O2SAT 96; BMI 28.4
== END 2024-07-18 09:35 | disposition home or self-care (01) ==
LOC: HO.PMC 08:58
PROVIDERS: PCP Internal Medicine; Visit Provider Anesthesiology
DX: M96.1 Postlaminectomy syndrome, not elsewhere classified (principal); G89.4 Chronic pain syndrome; Z96.89 Presence of other specified functional implants; Z45.1 Encounter for adjustment and management of infusion pump
CPT/HCPCS: 95991; 99213

== ENCOUNTER → 2024-07-18 08:57 | Outpatient (BNVA) | payer MEDICARE, OTHER, SELFPAY | PROVIDERS: PCP Internal Medicine; Visit Provider Anesthesiology | DX: M96.1 Postlaminectomy syndrome, not elsewhere classified (principal); G89.4 Chronic pain syndrome; R11.0 Nausea; R53.1 Weakness; R20.0 Anesthesia of skin; Z45.1 Encounter for adjustment and management of infusion pump; Z79.891 Long term (current) use of opiate analgesic | CPT/HCPCS: 99212 ==

== ENCOUNTER 2024-07-31 08:34 | Outpatient (AMB) | payer MEDICARE, OTHER, SELFPAY ==
[2024-07-31 08:42] VITALS: BP 124/60; PULSE 71; O2SAT 98; BMI 28.6
--- NOTE | 2024-07-31 08:42 | MHC.OFFVIS ---
Vital Signs 07/31/24 08:42 Height 6 ft 4 in Weight 235 lb BMI 28.6 BP 124/60 Blood Pressure Location Lt brachial Position Sitting Pulse 71 Pulse Source Pulse Oximeter Pulse Oximetry (%) 98 Oxygen Delivery Method Room Air Intake Visit Reasons: pain pump adjustment Allergies No Known Allergies Allergy (Verified 07/31/24 08:43) Medication List - Last Reconciled 07/31/24 by Lorena Mtz diazepam 10 mg PO BID escitalopram oxalate 20 mg PO DAILY finasteride 5 mg PO DAILY lamotrigine 200 mg PO BID montelukast 10 mg PO DAILY omeprazole 20 mg PO DAILY zolpidem 10 mg PO BEDTIME PRN HPI Comments Details: Chris is back for the pain pump refill with new medication containing only morphine. See description of the refill as below. We will wait until he will pass through the bridge bolus and after that he is welcome to come twice a week into this office for pain pump escalation. Considerations were given to the patient about possibility of treatment of his condition with Prialt. Considerations were given to the patient about possibility of treatment his pain with baclofen as well. The patient understood and agreed with the plan. He is scheduled for pump revision and replacement in September. Prior: we attempted to perform intrathecal catheter dye study unfortunately I was not able to aspirate anything from the side port. Therefore possibility of exploration of the intrathecal catheter and removal and replacement of the old intrathecal catheter exists. I will schedule him for the pump replacement. We are still waiting for his insurance company supplemental to approve 20% coverage for this procedure. very pleasant 73 years old gentleman who presents in my office with complains on pain in lower back and sensation of burning in bilateral lower extremities. She reports that pain in bilateral lower extremity started in 2017 after a chiropractor perform some sort of manipulation on his back. Even before that he was suffering from postlaminectomy syndrome which was treated in [place] with intrathecal pain pump. His pump is 6 years old and due to be replaced in fall of 2023. He reports that he can not sleep normally can not do activities of daily living can not take care of himself can not function normally he is retired individual. He reports that he needs walker occasionally for ambulation. He reports that most comfortable position for him is in the left hand side in the bed and he also reports that when he is sitting or standing his pain in bilateral lower extremities and unbearable.He currently onadmixture of Morphine 10 mg/ ml and 30 mg of bupivacaine, as well as clonidine 650 mcg per ml. He receives continuous infusion of morphine 1.835 mg per day and corresponding doses of the clonidine and bupivacaine. He does not have PTM device. He reports that PTM device make him ?addicted to morphine ?. He reports his pain in terms of tissue damage as spreading radiating in piercing sensation. Apparently he had multiple images of his lumbar spine done in [facility] last MRI was done in 2014. He reports that he is taking herbal or homeopathic treatments for his pain. He received multiple nerve blocks epidurals and apparently he had 2 trials of spinal cord stimulator with [facility] pain management. He reports past medical history of peripheral arterial disease with status post stent in the left femoral artery, he has prostate problem arthritis. His past surgical history significant for left total knee replacement in 2008. He had surgery for back fusion in 2009 and he reported cranial surgery in 2008. He is currently taking Ambien diazepam bethanechol and lamotrigine. He denies smoking cigarettes admits occasional rare take of alcohol drinks decaffeinated coffee and denies recreational drugs. [facility] Medical History (Updated 01/10/24 @ 09:40 by Surjit Godoy MD) Opioid dependence, uncomplicated Complex regional pain syndrome i of lower limb, bilateral Insomnia, unspecified Chronic pain disorder Postlaminectomy syndrome, not elsewhere classified Review of Systems Const All systems reviewed & are unremarkable except as noted in HPI and below ENT Reports Normal hearing present Neuro Reports Normal hearing present, Denies Abnormal speech present, Denies confusion and Denies Sensory deficit (Neuro) Psych Denies confusion Physical Exam Vital Signs: Last Vital Signs Pulse 71 07/31/24 08:42 BP 124/60 07/31/24 08:42 Pulse Ox 98 07/31/24 08:42 Oxygen Delivery Method Room Air 07/31/24 08:42 BMI result Body Mass Index 28.6 Const General: No confusion Orientation/consciousness: No confusion Eyes General: appearance normal, both eyes and all related structures Pupils: Equal, round and reactive pupils present EOM: EOMs intact bilaterally Neck Neck: Yes full ROM Chest Chest palpation & inspection: normal inspection of the chest Resp Effort & Inspection: normal respiratory effort, able to speak in complete sentences, normal respiratory pattern, no audible wheezes and no cough Cardio Jugular venous distension: no JVD GI Inspection: Yes normal to inspection Back/Spine/Pelvis Other: He has very well-healed scar in inspection in the projection of the L4-5 and S1 vertebra spinous processes. He also has scar in the left lower abdomen in Pfannenstiel fashion evidence of 2nd fusion. He is in no obvious mild distress today he prefers to positioned himself flat on the examination table during the conversation. No tenderness on palpation in paraspinal spinal region lumbar spine. Mild tenderness on palpation in projection of the sacral bone. SLR is negative bilaterally. Asaf's test is negative bilaterally. Valsalva maneuver does not aggravate his pain. He denies incontinence with urine or stool. He denies urinary retention Neuro General: No confusion Cranial nerves: Yes Equal, round and reactive pupils present and Yes Normal hearing present Speech: No Abnormal speech present Gait exam (Neuro): Normal gait present Motor exam (neuro): 5/5 motor strength present throughout Sensory Exam: No Sensory deficit (Neuro) Extrem General: No pedal edema Psych Speech and movement: Normal speech and movement present Affect: normal affect Attitude: cooperative Thought process: Normal thought process present Thought content: Normal thought content present Insight: Good insight present (Psych) Judgement: Good judgement present (Psych) Assessment & Plan Assessment & Plan (1) Postlaminectomy syndrome: Code(s): M96.1 - Postlaminectomy syndrome, not elsewhere classified Category: Medical (2) Chronic pain disorder: Code(s): G89.4 - Chronic pain syndrome Category: Medical Plan: Intrathecal pump refill. THE PATIENT CAME TODAY IN the office FOR THE CHANGE OF THE MEDICATION IN her PAIN PUMP. The name and date of were verified and informed consent was obtained for the procedure. ?The pump was interrogated and the residual amount of fluid was found to be 9.5 mL. HE WAS POSITIONED supine on the bed AND THE AREA OF THE INTRATHECAL PUMP in his left mid abdomen WAS PREPPED WITH CHLORAPREP. The fenestrated drape was sterilely applied over the area of the pump. Sterile gloves were worn and of the aspiration system was assembled containing 2 in 22 gauge noncoring needle, the needle was connected to extension tubing which was connected to the 20 cc sterile syringe. The pain pump was palpated under the skin in the patient's right buttock area. The needle was inserted through the skin and the central plug of the pain pump and fluid was aspirated. The clear fluid was going into the syringe the total amount of the fluid was 10.0 mL .. After that a new batch? of medication was obtained which was containing morphine 10 milligrams/mL The admixture was made in 20 cc syringe prepared by [facility] compounding pharmacy. The syringe was connected to the bacterial filter, and then connected to the extension tubing. After that the medication in the syringe was slowly instilled into the pump with aspirations at 15 and 5 cc sevilla.? The pump was reprogrammed for the continuous doses of morphine 1.399 mg per day with the same bridge bolus running the previous admixture of morphine clonidine and bupivacaine for the next 85 hours. (3) Implantable intrathecal infusion pump present: Code(s): Z96.89 - Presence of other specified functional implants Category: Medical Plan: I will schedule this patient for the pump adjustment next Monday. He is scheduled for pump replacement in September. Possibility for next pump refill to add baclofen will be considered. Next pump refill needs to be performed on or before 12/06/2024. Plan . Patient Instructions: I here by testify that I spent 35 minutes in conversation with this patient as well as planning his care and organizing this note. Coding Level of Care Code Est Pt Level 4 (39866) Procedure Only Diagnoses Postlaminectomy syndrome M96.1 Chronic pain disorder G89.4 Implantable intrathecal infusion pump present Z96.89
== END 2024-07-31 09:25 | disposition home or self-care (01) ==
PROVIDERS: PCP Internal Medicine; Visit Provider Anesthesiology
DX: G89.4 Chronic pain syndrome (principal); M96.1 Postlaminectomy syndrome, not elsewhere classified; Z96.89 Presence of other specified functional implants; Z45.1 Encounter for adjustment and management of infusion pump
CPT/HCPCS: 62370; 99214

== ENCOUNTER → 2024-07-31 08:34 | Outpatient (BNVA) | payer MEDICARE, OTHER, SELFPAY | PROVIDERS: PCP Internal Medicine; Visit Provider Anesthesiology | DX: Z45.1 Encounter for adjustment and management of infusion pump (principal); G90.523 Complex regional pain syndrome I of lower limb, bilateral; M96.1 Postlaminectomy syndrome, not elsewhere classified; Z79.891 Long term (current) use of opiate analgesic | CPT/HCPCS: 62370; 99212 ==

== ENCOUNTER 2024-08-05 08:43 | Outpatient (AMB) | payer MEDICARE, OTHER, SELFPAY ==
[2024-08-05 08:48] VITALS: BP 151/67; PULSE 78; RESP 16; O2SAT 96; BMI 28.6
--- NOTE | 2024-08-05 08:48 | A.OFFVIS_ITS ---
Vital Signs 08/05/24 08:48 Height 6 ft 4 in Weight 235 lb BMI 28.6 BP 151/67 H Blood Pressure Location Lt brachial Position Supine Respiration 16 Pulse 78 Pulse Source Pulse Oximeter Pulse Oximetry (%) 96 Oxygen Delivery Method Room Air Intake Visit Reasons: Follow Up Allergies No Known Allergies Allergy (Verified 08/05/24 08:49) Medication List - Last Reconciled 08/05/24 by Hawa Cao LPN diazepam 10 mg PO BID escitalopram oxalate 20 mg PO DAILY finasteride 5 mg PO DAILY lamotrigine 200 mg PO BID montelukast 10 mg PO DAILY omeprazole 20 mg PO DAILY zolpidem 10 mg PO BEDTIME PRN HPI Comments Details: Chris is back in my office for the interrogation and pump adjustment. The pump was read. Patient denies dizziness drowsiness or sleepiness after we removed clonidine and bupivacaine from his admixture. However now he reports his pain increased significantly he reports his pain takes wider areas of his body he asks me to escalate the doses of the medication. Escalation was done as below now he will receive 2 mg per day. He is interested in Prialt and we briefly discuss this medication. He has very good insurance and it may be covering almost all of his payments. 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 His insurance is by State it is most likely commercial insurance. Once we will find out what his co-pay will be we will give it to the patient and we will order medication from [facility].. Prior: we attempted to perform intrathecal catheter dye study unfortunately I was not able to aspirate anything from the side port. Therefore possibility of exploration of the intrathecal catheter and removal and replacement of the old intrathecal catheter exists. I will schedule him for the pump replacement. We are still waiting for his insurance company supplemental to approve 20% coverage for this procedure. very pleasant 73 years old gentleman who presents in my office with complains on pain in lower back and sensation of burning in bilateral lower extremities. She reports that pain in bilateral lower extremity started in 2018 after a chiropractor perform some sort of manipulation on his back. Even before that he was suffering from postlaminectomy syndrome which was treated in [place] with intrathecal pain pump. His pump is 6 years old and due to be replaced in fall of 2023. He reports that he can not sleep normally can not do activities of daily living can not take care of himself can not function normally he is retired individual. He reports that he needs walker occasionally for ambulation. He reports that most comfortable position for him is in the left hand side in the bed and he also reports that when he is sitting or standing his pain in bilateral lower extremities and unbearable.He currently onadmixture of Morphine 10 mg/ ml and 30 mg of bupivacaine, as well as clonidine 650 mcg per ml. He receives continuous infusion of morphine 1.835 mg per day and corresponding doses of the clonidine and bupivacaine. He does not have PTM device. He reports that PTM device make him ?addicted to morphine ?. He reports his pain in terms of tissue damage as spreading radiating in piercing sensation. Apparently he had multiple images of his lumbar spine done in [facility] last MRI was done in 2014. He reports that he is taking herbal or homeopathic treatments for his pain. He received multiple nerve blocks epidurals and apparently he had 2 trials of spinal cord stimulator with [facility] pain management. He reports past medical history of peripheral arterial disease with status post stent in the left femoral artery, he has prostate problem arthritis. His past surgical history significant for left total knee replacement in 2008. He had surgery for back fusion in 2009 and he reported cranial surgery in 2008. He is currently taking Ambien diazepam bethanechol and lamotrigine. He denies smoking cigarettes admits occasional rare take of alcohol drinks decaffeinated coffee and denies recreational drugs. [facility] Medical History (Updated 01/10/24 @ 09:40 by Surjit Godoy MD) Opioid dependence, uncomplicated Complex regional pain syndrome i of lower limb, bilateral Insomnia, unspecified Chronic pain disorder Postlaminectomy syndrome, not elsewhere classified Review of Systems Const All systems reviewed & are unremarkable except as noted in HPI and below ENT Reports Normal hearing present Neuro Reports Normal hearing present, Denies Abnormal speech present, Denies confusion and Denies Sensory deficit (Neuro) Psych Denies confusion Physical Exam Vital Signs: Last Vital Signs Pulse 78 08/05/24 08:48 Resp 16 08/05/24 08:48 BP 151/67 H 08/05/24 08:48 Pulse Ox 96 08/05/24 08:48 Oxygen Delivery Method Room Air 08/05/24 08:48 BMI result Body Mass Index 28.6 Const General: No confusion Orientation/consciousness: No confusion Eyes General: appearance normal, both eyes and all related structures Pupils: Equal, round and reactive pupils present EOM: EOMs intact bilaterally Neck Neck: Yes full ROM Chest Chest palpation & inspection: normal inspection of the chest Resp Effort & Inspection: normal respiratory effort, able to speak in complete sentences, normal respiratory pattern, no audible wheezes and no cough Cardio Jugular venous distension: no JVD GI Inspection: Yes normal to inspection Back/Spine/Pelvis Other: He has very well-healed scar in inspection in the projection of the L4-5 and S1 vertebra spinous processes. He also has scar in the left lower abdomen in Pfannenstiel fashion evidence of 2nd fusion. He is in no obvious mild distress today he prefers to positioned himself flat on the examination table during the conversation. No tenderness on palpation in paraspinal spinal region lumbar spine. Mild tenderness on palpation in projection of the sacral bone. SLR is negative bilaterally. Asaf's test is negative bilaterally. Valsalva maneuver does not aggravate his pain. He denies incontinence with urine or stool. He denies urinary retention Neuro General: No confusion Cranial nerves: Yes Equal, round and reactive pupils present and Yes Normal hearing present Speech: No Abnormal speech present Gait exam (Neuro): Normal gait present Motor exam (neuro): 5/5 motor strength present throughout Sensory Exam: No Sensory deficit (Neuro) Extrem General: No pedal edema Psych Speech and movement: Normal speech and movement present Affect: normal affect Attitude: cooperative Thought process: Normal thought process present Thought content: Normal thought content present Insight: Good insight present (Psych) Judgement: Good judgement present (Psych) Assessment & Plan Assessment & Plan (1) Postlaminectomy syndrome: Code(s): M96.1 - Postlaminectomy syndrome, not elsewhere classified Category: Medical (2) Chronic pain disorder: Code(s): G89.4 - Chronic pain syndrome Category: Medical Plan: INTRATHECAL PAIN PUMP ADJUSTMENT. The patient came today intrathecal pain pump was read. The amount of the medication in the pump is 18 mL. He was receiving 1.4 mg of morphine a day. The dose was escalated to 1.999 mg a day. (3) Implantable intrathecal infusion pump present: Code(s): Z96.89 - Presence of other specified functional implants Category: Medical Plan: The morphine dose was increased. I will give him another escalation tomorrow but no more than 20%. I prescribed him naloxone intranasal in case he will have respiratory depression or other complications of morphine escalation. He is interested in Prialt. 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 Maybe his co-pay on Prialt will not be as expensive. We will be calling [facility] TO FIND OUT THE CO-PAY FOR THIS PATIENT. Plan . Medications: New naloxone 4 mg/actuation spray 1 dose into ONE nostril; alternate nostrils w each dose until help arr son 4 mg intranasal Q2M 1 day 2 ea 8RF Coding Level of Care Code Est Pt Level 3 (98469) Procedure Only Diagnoses Postlaminectomy syndrome M96.1 Chronic pain disorder G89.4 Implantable intrathecal infusion pump present Z96.89
== END 2024-08-05 09:06 | disposition home or self-care (01) ==
PROVIDERS: PCP Internal Medicine; Visit Provider Anesthesiology
DX: M96.1 Postlaminectomy syndrome, not elsewhere classified (principal); G89.4 Chronic pain syndrome; Z96.89 Presence of other specified functional implants; Z45.1 Encounter for adjustment and management of infusion pump
CPT/HCPCS: 62368; 99213

== ENCOUNTER → 2024-08-05 08:43 | Outpatient (BNVA) | payer MEDICARE, OTHER, SELFPAY | PROVIDERS: PCP Internal Medicine; Visit Provider Anesthesiology | DX: M96.1 Postlaminectomy syndrome, not elsewhere classified (principal); G89.4 Chronic pain syndrome; Z45.1 Encounter for adjustment and management of infusion pump; Z79.891 Long term (current) use of opiate analgesic; Z79.899 Other long term (current) drug therapy | CPT/HCPCS: 62368; 99212 ==

== ENCOUNTER 2024-08-06 06:19 | Outpatient (REF) | payer MEDICARE, OTHER, SELFPAY | END 2024-08-06 06:20 | disposition home or self-care (01) | LOC: CF 06:19 | PROVIDERS: Visit Provider Anesthesiology | DX: M96.1 Postlaminectomy syndrome, not elsewhere classified (principal); G89.4 Chronic pain syndrome; Z96.89 Presence of other specified functional implants | CPT/HCPCS: 62368; 99212 ==

== ENCOUNTER 2024-08-06 12:52 | Outpatient (AMB) | payer MEDICARE, OTHER, SELFPAY ==
--- NOTE | 2024-08-06 12:57 | A.OFFVIS_ITS ---
Vital Signs 08/06/24 12:58 Height 6 ft 4 in Weight 235 lb BMI 28.6 BP 120/68 Blood Pressure Location Lt brachial Position Standing Respiration 18 Pulse 70 Pulse Source Pulse Oximeter Pulse Oximetry (%) 98 Oxygen Delivery Method Room Air Intake Visit Reasons: pump dose escalation Intake Note: Patient comes in for pimp adjustment. Reports pain 9/10. Allergies No Known Allergies Allergy (Verified 08/06/24 13:00) HPI Comments Details: Chris is back in my office for the interrogation and pump adjustment. The pump was read. the patient reports no changes in the level of his pain. He reports pain moderate to severe. We requested [facility] to give us a qwote on the calderon of Prialt medication. After that we will discuss it with the patient and probably start him on a Prialt trial. Escalation was performed today he will be receiving 2.4 mg per mL. Prior: we attempted to perform intrathecal catheter dye study unfortunately I was not able to aspirate anything from the side port. Therefore possibility of exploration of the intrathecal catheter and removal and replacement of the old intrathecal catheter exists. I will schedule him for the pump replacement. We are still waiting for his insurance company supplemental to approve 20% coverage for this procedure. very pleasant 73 years old gentleman who presents in my office with complains on pain in lower back and sensation of burning in bilateral lower extremities. She reports that pain in bilateral lower extremity started in 2018 after a chiropractor perform some sort of manipulation on his back. Even before that he was suffering from postlaminectomy syndrome which was treated in [place] with intrathecal pain pump. His pump is 6 years old and due to be replaced in fall of 2023. He reports that he can not sleep normally can not do activities of daily living can not take care of himself can not function normally he is retired individual. He reports that he needs walker occasionally for ambulation. He reports that most comfortable position for him is in the left hand side in the bed and he also reports that when he is sitting or standing his pain in bilateral lower extremities and unbearable.He currently onadmixture of Morphine 10 mg/ ml and 30 mg of bupivacaine, as well as clonidine 650 mcg per ml. He receives continuous infusion of morphine 1.835 mg per day and corresponding doses of the clonidine and bupivacaine. He does not have PTM device. He reports that PTM device make him ?addicted to morphine ?. He reports his pain in terms of tissue damage as spreading radiating in piercing sensation. Apparently he had multiple images of his lumbar spine done in [facility] last MRI was done in 2014. He reports that he is taking herbal or homeopathic treatments for his pain. He received multiple nerve blocks epidurals and apparently he had 2 trials of spinal cord stimulator with [facility] pain management. He reports past medical history of peripheral arterial disease with status post stent in the left femoral artery, he has prostate problem arthritis. His past surgical history significant for left total knee replacement in 2008. He had surgery for back fusion in 2009 and he reported cranial surgery in 2008. He is currently taking Ambien diazepam bethanechol and lamotrigine. He denies smoking cigarettes admits occasional rare take of alcohol drinks decaffeinated coffee and denies recreational drugs. [facility] Medical History (Updated 01/10/24 @ 09:40 by Surjit Godoy MD) Opioid dependence, uncomplicated Complex regional pain syndrome i of lower limb, bilateral Insomnia, unspecified Chronic pain disorder Postlaminectomy syndrome, not elsewhere classified Review of Systems Const All systems reviewed & are unremarkable except as noted in HPI and below ENT Reports Normal hearing present Neuro Reports Normal hearing present, Denies Abnormal speech present, Denies confusion and Denies Sensory deficit (Neuro) Psych Denies confusion Physical Exam Vital Signs: Last Vital Signs Pulse 70 08/06/24 12:58 Resp 18 08/06/24 12:58 BP 120/68 08/06/24 12:58 Pulse Ox 98 08/06/24 12:58 Oxygen Delivery Method Room Air 08/06/24 12:58 BMI result Body Mass Index 28.6 Const General: No confusion Orientation/consciousness: No confusion Eyes General: appearance normal, both eyes and all related structures Pupils: Equal, round and reactive pupils present EOM: EOMs intact bilaterally Neck Neck: Yes full ROM Chest Chest palpation & inspection: normal inspection of the chest Resp Effort & Inspection: normal respiratory effort, able to speak in complete sentences, normal respiratory pattern, no audible wheezes and no cough Cardio Jugular venous distension: no JVD GI Inspection: Yes normal to inspection Back/Spine/Pelvis Other: He has very well-healed scar in inspection in the projection of the L4-5 and S1 vertebra spinous processes. He also has scar in the left lower abdomen in Pfannenstiel fashion evidence of 2nd fusion. He is in no obvious mild distress today he prefers to positioned himself flat on the examination table during the conversation. No tenderness on palpation in paraspinal spinal region lumbar spine. Mild tenderness on palpation in projection of the sacral bone. SLR is negative bilaterally. Asaf's test is negative bilaterally. Valsalva maneuver does not aggravate his pain. He denies incontinence with urine or stool. He denies urinary retention Neuro General: No confusion Cranial nerves: Yes Equal, round and reactive pupils present and Yes Normal hearing present Speech: No Abnormal speech present Gait exam (Neuro): Normal gait present Motor exam (neuro): 5/5 motor strength present throughout Sensory Exam: No Sensory deficit (Neuro) Extrem General: No pedal edema Psych Speech and movement: Normal speech and movement present Affect: normal affect Attitude: cooperative Thought process: Normal thought process present Thought content: Normal thought content present Insight: Good insight present (Psych) Judgement: Good judgement present (Psych) Assessment & Plan Assessment & Plan (1) Postlaminectomy syndrome: Code(s): M96.1 - Postlaminectomy syndrome, not elsewhere classified Category: Medical (2) Chronic pain disorder: Code(s): G89.4 - Chronic pain syndrome Category: Medical Plan: INTRATHECAL PAIN PUMP ADJUSTMENT. The patient came today intrathecal pain pump was read. The amount of the medication in the pump is 18.5 mL. He was receiving 1.999 mg of morphine a day. The dose was escalated to 2.399mg a day. (3) Implantable intrathecal infusion pump present: Code(s): Z96.89 - Presence of other specified functional implants Category: Medical Plan: The morphine dose was increased again. I will continue escalating unless the Prialt calderon will be acceptable for the patient. He does not have a history of any psychosis. No degenerative neurogenic conditions which would imply ataxia or atetose movements He is interested in Prialt. 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 Maybe his co-pay on Prialt will not be as expensive. Plan . Coding Level of Care Code Procedure Only Diagnoses Postlaminectomy syndrome M96.1 Chronic pain disorder G89.4 Implantable intrathecal infusion pump present Z96.89
[2024-08-06 12:58] VITALS: BP 120/68; PULSE 70; RESP 18; O2SAT 98; BMI 28.6
== END 2024-08-06 13:02 | disposition home or self-care (01) ==
LOC: HO.PMCPRC 12:52
PROVIDERS: PCP Internal Medicine; Visit Provider Anesthesiology
DX: M96.1 Postlaminectomy syndrome, not elsewhere classified (principal); G89.4 Chronic pain syndrome; Z96.89 Presence of other specified functional implants; Z45.1 Encounter for adjustment and management of infusion pump
CPT/HCPCS: 62368; 99213

== ENCOUNTER 2024-08-15 08:30 | Outpatient (AMB) | payer MEDICARE, OTHER, SELFPAY ==
[2024-08-15 08:37] VITALS: BP 139/68; PULSE 93; O2SAT 97; BMI 28.7
--- NOTE | 2024-08-15 08:37 | A.OFFVIS_ITS ---
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 He received bills from [employer] for 150 dollars. This is a payment for the current medication not involving Prialt. I recommended him to higher transition social worker to sort things out with [employer]. He understood. We had lengthy discussion today about future treatment with Prialt. I also explained to him need for intranasal Narcan. Patient understood. It has nothing to do with Prialt. His insurance company stated him that he is in my office out of network. They recommended him to go to an office of a provider in [place]. I told him that the if monetary issues are important for him I will not hold a grudge against him if he will switch the provider. I still will be able to form revision of the pain pump and replacement as we planned in September. Intrathecal pain pump was read today continues to receive 100 micro g of morphine an hour which cast into 2.4 mg of morphine a day. Prior: we attempted to perform intrathecal catheter dye study unfortunately I was not able to aspirate anything from the side port. Therefore possibility of exploration of the intrathecal catheter and removal and replacement of the old intrathecal catheter exists. I will schedule him for the pump replacement. We are still waiting for his insurance company supplemental to approve 20% coverage for this procedure. very pleasant 73 years old gentleman who presents in my office with complains on pain in lower back and sensation of burning in bilateral lower extremities. She reports that pain in bilateral lower extremity started in 2018 after a chiropractor perform some sort of manipulation on his back. Even before that he was suffering from postlaminectomy syndrome which was treated in [place] with intrathecal pain pump. His pump is 6 years old and due to be replaced in fall of 2023. He reports that he can not sleep normally can not do activities of daily living can not take care of himself can not function normally he is retired individual. He reports that he needs walker occasionally for ambulation. He reports that most comfortable position for him is in the left hand side in the bed and he also reports that when he is sitting or standing his pain in bilateral lower extremities and unbearable.He currently onadmixture of Morphine 10 mg/ ml and 30 mg of bupivacaine, as well as clonidine 650 mcg per ml. He receives continuous infusion of morphine 1.835 mg per day and corresponding doses of the clonidine and bupivacaine. He does not have PTM device. He reports that PTM device make him ?addicted to morphine ?. He reports his pain in terms of tissue damage as spreading radiating in piercing sensation. Apparently he had multiple images of his lumbar spine done in [facility] last MRI was done in 2014. He reports that he is taking herbal or homeopathic treatments for his pain. He received multiple nerve blocks epidurals and apparently he had 2 trials of spinal cord stimulator with [facility] pain management. He reports past medical history of peripheral arterial disease with status post stent in the left femoral artery, he has prostate problem arthritis. His past surgical history significant for left total knee replacement in 2008. He had surgery for back fusion in 2009 and he reported cranial surgery in 2008. He is currently taking Ambien diazepam bethanechol and lamotrigine. He denies smoking cigarettes admits occasional rare take of alcohol drinks decaffeinated coffee and denies recreational drugs. [facility] Medical History (Updated 01/10/24 @ 09:40 by Surjit Godoy MD) Opioid dependence, uncomplicated Complex regional pain syndrome i of lower limb, bilateral Insomnia, unspecified Chronic pain disorder Postlaminectomy syndrome, not elsewhere classified Review of Systems Const All systems reviewed & are unremarkable except as noted in HPI and below ENT Reports Normal hearing present Neuro Reports Normal hearing present, Denies Abnormal speech present, Denies confusion and Denies Sensory deficit (Neuro) Psych Denies confusion Physical Exam Vital Signs: Last Vital Signs Pulse 93 08/15/24 08:37 BP 139/68 08/15/24 08:37 Pulse Ox 97 08/15/24 08:37 Oxygen Delivery Method Room Air 08/15/24 08:37 BMI result Body Mass Index 28.7 Const General: No confusion Orientation/consciousness: No confusion Eyes General: appearance normal, both eyes and all related structures Pupils: Equal, round and reactive pupils present EOM: EOMs intact bilaterally Neck Neck: Yes full ROM Chest Chest palpation & inspection: normal inspection of the chest Resp Effort & Inspection: normal respiratory effort, able to speak in complete sentences, normal respiratory pattern, no audible wheezes and no cough Cardio Jugular venous distension: no JVD GI Inspection: Yes normal to inspection Back/Spine/Pelvis Other: He has very well-healed scar in inspection in the projection of the L4-5 and S1 vertebra spinous processes. He also has scar in the left lower abdomen in Pfannenstiel fashion evidence of 2nd fusion. He is in no obvious mild distress today he prefers to positioned himself flat on the examination table during the conversation. No tenderness on palpation in paraspinal spinal region lumbar spine. Mild tenderness on palpation in projection of the sacral bone. SLR is negative bilaterally. Asaf's test is negative bilaterally. Valsalva maneuver does not aggravate his pain. He denies incontinence with urine or stool. He denies urinary retention Neuro General: No confusion Cranial nerves: Yes Equal, round and reactive pupils present and Yes Normal hearing present Speech: No Abnormal speech present Gait exam (Neuro): Normal gait present Motor exam (neuro): 5/5 motor strength present throughout Sensory Exam: No Sensory deficit (Neuro) Extrem General: No pedal edema Psych Speech and movement: Normal speech and movement present Affect: normal affect Attitude: cooperative Thought process: Normal thought process present Thought content: Normal thought content present Insight: Good insight present (Psych) Judgement: Good judgement present (Psych) Assessment & Plan Assessment & Plan (1) Postlaminectomy syndrome: Code(s): M96.1 - Postlaminectomy syndrome, not elsewhere classified Category: Medical (2) Chronic pain disorder: Code(s): G89.4 - Chronic pain syndrome Category: Medical (3) Implantable intrathecal infusion pump present: Code(s): Z96.89 - Presence of other specified functional implants Category: Medical Plan: Discussion of the Prialt, morphine, needs for Narcan are as above. I will see the patient in the future as needed. He will be scheduled for pump replacement and possible revision in September. Plan . Patient Instructions: I here by testify that I spent 32 minutes in conversation with this patient as well as planning his care and organizing this note. Coding Level of Care Code Est Pt Level 4 (10505) Diagnoses Postlaminectomy syndrome M96.1 Chronic pain disorder G89.4 Implantable intrathecal infusion pump present Z96.89
== END 2024-08-15 09:18 | disposition home or self-care (01) ==
PROVIDERS: PCP Internal Medicine; Visit Provider Anesthesiology
DX: M96.1 Postlaminectomy syndrome, not elsewhere classified (principal); G89.4 Chronic pain syndrome; Z96.89 Presence of other specified functional implants
CPT/HCPCS: 99214

== ENCOUNTER → 2024-08-15 08:30 | Outpatient (BNVA) | payer MEDICARE, OTHER, SELFPAY | PROVIDERS: PCP Internal Medicine; Visit Provider Anesthesiology | DX: M96.1 Postlaminectomy syndrome, not elsewhere classified (principal); G89.4 Chronic pain syndrome; Z96.89 Presence of other specified functional implants; Z51.81 Encounter for therapeutic drug level monitoring; Z79.891 Long term (current) use of opiate analgesic | CPT/HCPCS: 99212 ==

== ENCOUNTER 2024-08-22 08:28 | Outpatient (AMB) | payer MEDICARE, OTHER, SELFPAY ==
--- NOTE | 2024-08-22 08:30 | A.OFFVIS_ITS ---
Vital Signs 08/22/24 08:35 Height 6 ft 4 in Weight 235 lb 8 oz BMI 28.7 BP 134/60 Blood Pressure Location Lt brachial Position Sitting Pulse 92 Pulse Source Pulse Oximeter Pulse Oximetry (%) 96 Oxygen Delivery Method Room Air Intake Visit Reasons: ITDD Refill Intake Note: Pain today 05/21 Second Hand Paper Machine Required: No Accompanied by: Spouse Allergies No Known Allergies Allergy (Verified 08/22/24 08:37) HPI Comments Details: Chris is back in my office for discussion of the follow-up with the plans. The patient is on the pump now which is currently not supported by [employer]. It is pump which continues to run but in 4 months even I would refuse to fill this pump up. We need to schedule a replacement. I investigated the issue of Prialt and it looks like that Prialt is free of charge and insurances of this patient will cover the entire cost of the medication. At the same time Prialt is very sensitive medication to deliver and the doses are very small. I would like to perform a revision of the pain pump and revision of intrathecal catheter if it is necessary and only after that start Prialt medication for this patient. The issue of provider in [place] was not raised today. The provider in [facility] apparently is in network for this patient and I am not. Intrathecal pain pump was read today continues to receive 100 micro g of morphine an hour which cast into 2.4 mg of morphine a day. He has 14 cc of the medication in the pump. It should be enough for us to perform pump revision and replacement with this current medication. Prior: we attempted to perform intrathecal catheter dye study unfortunately I was not able to aspirate anything from the side port. Therefore possibility of exploration of the intrathecal catheter and removal and replacement of the old intrathecal catheter exists. very pleasant 73 years old gentleman who presents in my office with complains on pain in lower back and sensation of burning in bilateral lower extremities. She reports that pain in bilateral lower extremity started in 2018 after a chiropractor perform some sort of manipulation on his back. Even before that he was suffering from postlaminectomy syndrome which was treated in [place] with intrathecal pain pump. His pump is 6 years old and due to be replaced in fall of 2023. He reports that he can not sleep normally can not do activities of daily living can not take care of himself can not function normally he is retired individual. He reports that he needs walker occasionally for ambulation. He reports that most comfortable position for him is in the left hand side in the bed and he also reports that when he is sitting or standing his pain in bilateral lower extremities and unbearable.He currently onadmixture of Morphine 10 mg/ ml and 30 mg of bupivacaine, as well as clonidine 650 mcg per ml. He receives continuous infusion of morphine 1.835 mg per day and corresponding doses of the clonidine and bupivacaine. He does not have PTM device. He reports that PTM device make him ?addicted to morphine ?. He reports his pain in terms of tissue damage as spreading radiating in piercing sensation. Apparently he had multiple images of his lumbar spine done in [facility] last MRI was done in 2014. He reports that he is taking herbal or homeopathic treatments for his pain. He received multiple nerve blocks epidurals and apparently he had 2 trials of spinal cord stimulator with [facility] pain management. He reports past medical history of peripheral arterial disease with status post stent in the left femoral artery, he has prostate problem arthritis. His past surgical history significant for left total knee replacement in 2008. He had surgery for back fusion in 2009 and he reported cranial surgery in 2008. He is currently taking Ambien diazepam bethanechol and lamotrigine. He denies smoking cigarettes admits occasional rare take of alcohol drinks decaffeinated coffee and denies recreational drugs. [facility] Medical History (Updated 01/10/24 @ 09:40 by Surjit Godoy MD) Opioid dependence, uncomplicated Complex regional pain syndrome i of lower limb, bilateral Insomnia, unspecified Chronic pain disorder Postlaminectomy syndrome, not elsewhere classified Review of Systems Const All systems reviewed & are unremarkable except as noted in HPI and below ENT Reports Normal hearing present Neuro Reports Normal hearing present, Denies Abnormal speech present, Denies confusion and Denies Sensory deficit (Neuro) Psych Denies confusion Physical Exam Vital Signs: Last Vital Signs Pulse 92 08/22/24 08:35 BP 134/60 08/22/24 08:35 Pulse Ox 96 08/22/24 08:35 Oxygen Delivery Method Room Air 08/22/24 08:35 BMI result Body Mass Index 28.7 Const General: No confusion Orientation/consciousness: No confusion Eyes General: appearance normal, both eyes and all related structures Pupils: Equal, round and reactive pupils present EOM: EOMs intact bilaterally Neck Neck: Yes full ROM Chest Chest palpation & inspection: normal inspection of the chest Resp Effort & Inspection: normal respiratory effort, able to speak in complete sentences, normal respiratory pattern, no audible wheezes and no cough Cardio Jugular venous distension: no JVD GI Inspection: Yes normal to inspection Back/Spine/Pelvis Other: He has very well-healed scar in inspection in the projection of the L4-5 and S1 vertebra spinous processes. He also has scar in the left lower abdomen in Pfannenstiel fashion evidence of 2nd fusion. He is in no obvious mild distress today he prefers to positioned himself flat on the examination table during the conversation. No tenderness on palpation in paraspinal spinal region lumbar spine. Mild tenderness on palpation in projection of the sacral bone. SLR is negative bilaterally. Asaf's test is negative bilaterally. Valsalva maneuver does not aggravate his pain. He denies incontinence with urine or stool. He denies urinary retention Neuro General: No confusion Cranial nerves: Yes Equal, round and reactive pupils present and Yes Normal hearing present Speech: No Abnormal speech present Gait exam (Neuro): Normal gait present Motor exam (neuro): 5/5 motor strength present throughout Sensory Exam: No Sensory deficit (Neuro) Extrem General: No pedal edema Psych Speech and movement: Normal speech and movement present Affect: normal affect Attitude: cooperative Thought process: Normal thought process present Thought content: Normal thought content present Insight: Good insight present (Psych) Judgement: Good judgement present (Psych) Assessment & Plan Assessment & Plan (1) Postlaminectomy syndrome: Code(s): M96.1 - Postlaminectomy syndrome, not elsewhere classified Category: Medical (2) Chronic pain disorder: Code(s): G89.4 - Chronic pain syndrome Category: Medical (3) Implantable intrathecal infusion pump present: Code(s): Z96.89 - Presence of other specified functional implants Category: Medical Plan: Discussion of the Prialt, morphine, needs for pump replacement are as above he will be scheduled for replacement of the pain pump. A necessary revision of the intrathecal catheter could be performed as well Plan . Coding Level of Care Code Est Pt Level 3 (81213) Diagnoses Postlaminectomy syndrome M96.1 Chronic pain disorder G89.4 Implantable intrathecal infusion pump present Z96.89
[2024-08-22 08:35] VITALS: BP 134/60; PULSE 92; O2SAT 96; BMI 28.7
== END 2024-08-22 08:49 | disposition home or self-care (01) ==
PROVIDERS: PCP Internal Medicine; Visit Provider Anesthesiology
DX: M96.1 Postlaminectomy syndrome, not elsewhere classified (principal); G89.4 Chronic pain syndrome; Z96.89 Presence of other specified functional implants
CPT/HCPCS: 99213

== ENCOUNTER → 2024-08-22 08:28 | Outpatient (BNVA) | payer MEDICARE, OTHER, SELFPAY | PROVIDERS: PCP Internal Medicine; Visit Provider Anesthesiology | DX: M96.1 Postlaminectomy syndrome, not elsewhere classified (principal); G89.4 Chronic pain syndrome; Z96.89 Presence of other specified functional implants | CPT/HCPCS: 99212 ==

== ENCOUNTER 2024-09-16 15:55 | Outpatient (AMB) | payer MEDICARE, OTHER, SELFPAY ==
--- NOTE | 2024-09-16 15:56 | MHC.OFFVIS ---
Intake Visit Reasons: Discussion Re: Concerns with [place] Prior to Proc Intake Note: Pain today 05/21 Joint Setter Required: No Allergies No Known Allergies Allergy (Verified 09/16/24 15:56) HPI Comments Details: Chris is on the phone today to discuss possibility of anesthesia complications. In the past he received general anesthesia resulting in urinary retention. He is asking me if preemptive taking of bethanechol will help him to avoid this complication. I told him that minimizing opioid medications during the case would serve him better compare to preoperative bethanechol. Postoperatively we can start him on bethanechol. If he will develop urinary retention we will proceed with the straight cath postoperatively. We can also request a consult from 1 of our urologists to insert indwelling urinary catheter. Prior: The patient is on the pump now which is currently not supported by [employer]. It is pump which continues to run but in 4 months even I would refuse to fill this pump up. We need to schedule a replacement. I investigated the issue of Prialt and it looks like that Prialt is free of charge and insurances of this patient will cover the entire cost of the medication. At the same time Prialt is very sensitive medication to deliver and the doses are very small. I would like to perform a revision of the pain pump and revision of intrathecal catheter if it is necessary and only after that start Prialt medication for this patient. The issue of provider in [place] was not raised today. The provider in [place] apparently is in network for this patient and I am not. Intrathecal pain pump was read today continues to receive 100 micro g of morphine an hour which cast into 2.4 mg of morphine a day. He has 14 cc of the medication in the pump. It should be enough for us to perform pump revision and replacement with this current medication. Prior: we attempted to perform intrathecal catheter dye study unfortunately I was not able to aspirate anything from the side port. Therefore possibility of exploration of the intrathecal catheter and removal and replacement of the old intrathecal catheter exists. very pleasant 73 years old gentleman who presents in my office with complains on pain in lower back and sensation of burning in bilateral lower extremities. She reports that pain in bilateral lower extremity started in 2018 after a chiropractor perform some sort of manipulation on his back. Even before that he was suffering from postlaminectomy syndrome which was treated in [place] with intrathecal pain pump. His pump is 6 years old and due to be replaced in fall of 2023. He reports that he can not sleep normally can not do activities of daily living can not take care of himself can not function normally he is retired individual. He reports that he needs walker occasionally for ambulation. He reports that most comfortable position for him is in the left hand side in the bed and he also reports that when he is sitting or standing his pain in bilateral lower extremities and unbearable.He currently onadmixture of Morphine 10 mg/ ml and 30 mg of bupivacaine, as well as clonidine 650 mcg per ml. He receives continuous infusion of morphine 1.835 mg per day and corresponding doses of the clonidine and bupivacaine. He does not have PTM device. He reports that PTM device make him ?addicted to morphine ?. He reports his pain in terms of tissue damage as spreading radiating in piercing sensation. Apparently he had multiple images of his lumbar spine done in [facility] last MRI was done in 2014. He reports that he is taking herbal or homeopathic treatments for his pain. He received multiple nerve blocks epidurals and apparently he had 2 trials of spinal cord stimulator with [facility] pain management. He reports past medical history of peripheral arterial disease with status post stent in the left femoral artery, he has prostate problem arthritis. His past surgical history significant for left total knee replacement in 2008. He had surgery for back fusion in 2009 and he reported cranial surgery in 2008. He is currently taking Ambien diazepam bethanechol and lamotrigine. He denies smoking cigarettes admits occasional rare take of alcohol drinks decaffeinated coffee and denies recreational drugs. [facility] Medical History (Updated 01/10/24 @ 09:40 by Surjit Godoy MD) Opioid dependence, uncomplicated Complex regional pain syndrome i of lower limb, bilateral Insomnia, unspecified Chronic pain disorder Postlaminectomy syndrome, not elsewhere classified Review of Systems Const All systems reviewed & are unremarkable except as noted in HPI and below Telehealth Telehealth Telehealth Platform: Telephone Location of provider rendering services: practice address Location of patient: address on file Patient Identification confirmed using: Name, : Yes Telehealth method: voice only Patient verbally consented to treatment: Yes Patient verbally consented to billing insurance company: Yes Patient informed of any privacy concerns related to visit: Yes Assessment & Plan Assessment & Plan (1) Postlaminectomy syndrome: Code(s): M96.1 - Postlaminectomy syndrome, not elsewhere classified Category: Medical (2) Chronic pain disorder: Code(s): G89.4 - Chronic pain syndrome Category: Medical (3) Implantable intrathecal infusion pump present: Code(s): Z96.89 - Presence of other specified functional implants Category: Medical Plan: Pump replacement was discussed today. Previously discussions about Prialt for this patient's were reiterated. Urinary retention as a postoperative complication could happen and we should treated accordingly. Minimization of opioids intraoperatively and straight cath postoperatively could be the only thing the patient needs to treat this complication. He may continue his Bethanechol postoperatively to alleviate his urinary retention. Plan I here by testify that I spent 32 minutes in conversation with this patient as well as planning his care and organizing this note.. Coding Level of Care Code Tele Est Pt Level 4 (95945) Diagnoses Postlaminectomy syndrome M96.1 Chronic pain disorder G89.4 Implantable intrathecal infusion pump present Z96.89
== END 2024-09-16 16:18 | disposition home or self-care (01) ==
LOC: HO.PMC 15:55
PROVIDERS: PCP Internal Medicine; Visit Provider Anesthesiology
DX: M96.1 Postlaminectomy syndrome, not elsewhere classified (principal); G89.4 Chronic pain syndrome; Z96.89 Presence of other specified functional implants
CPT/HCPCS: 99214

== ENCOUNTER 2024-09-20 07:21 | Day surgery (SDC) | payer MEDICARE, OTHER, SELFPAY ==
[2024-09-18 13:31] VITALS: BMI 28.6
[2024-09-20] VITALS (8 sets, daily range): BP systolic 95–148; BP diastolic 50–89; PULSE 76–104; RESP 16–17; TEMP 36.1–36.4; O2SAT 93–97
--- NOTE | 2024-09-20 08:30 | HO.ANESPROP2 ---
Documented by User: Elis Beavers NP 09/18/24 14:10 HPI - Anesthesia Eval Consult details Narrative: 73yo M for Intrathecal Drug Delivery Replacement and Catheter Intrathecal morphine pump in situ Increased risk post-op urinary retention PMFSH Active Problems Active Problems: All Active Problems Implantable intrathecal infusion pump present (Acute) Postlaminectomy syndrome (Acute) Chronic pain disorder (Acute) Past Medical History Medical History (Updated 09/18/24 @ 13:33 by Ana Berrios RN) Implantable intrathecal infusion pump present Postoperative urinary retention Opioid dependence, uncomplicated Complex regional pain syndrome i of lower limb, bilateral Insomnia, unspecified Chronic pain disorder Postlaminectomy syndrome, not elsewhere classified Surgical History Surgical History (Updated 09/20/24 @ 07:57 by Rosario Berry RN) History of surgery H/O knee surgery History of back surgery Social History Social History Are you a primary lawn caretaker to a significant other at home: No Do you presently have visiting nurse or other home services: No Comment: Balance issues at home Patient Tobacco Use Status: Never used Tobacco Use of substances other than those prescribed or required for medical reasons: No Have you been hit, kicked, punched, or otherwise hurt by someone within the past year? If so, by whom?: No Are you DNR?: Yes Advance Directives: No Advance Directives Information Provided: No Advance Directives on File: No Recently lost weight without trying: No How much weight loss: Not applicable Eating poorly because of decreased appetite: No Nutrition screen score: 0 Nutrition Risks: No Nutritional Risk Poor oral hygiene: Yes (missing tooth x1, caps throughout) Meds Allergies Allergy/AdvReac Type Severity Reaction Status Date / Time No Known Allergies Allergy Verified 09/20/24 07:55 Home Medications ?Medication ?Instructions ?Recorded ?Confirmed ?Last Taken ?Type diazepam 10 mg tablet 10 mg PO BID 01/09/24 09/20/24 Unknown History lamotrigine 200 mg tablet 200 mg PO BID 01/09/24 09/20/24 Unknown History omeprazole 20 mg capsule,delayed 20 mg PO DAILY 01/09/24 09/20/24 Unknown History release zolpidem 10 mg tablet 10 mg PO BEDTIME PRN Insomnia 01/09/24 09/20/24 Unknown History escitalopram oxalate 20 mg tablet 20 mg PO DAILY 03/29/24 09/20/24 Unknown History finasteride 5 mg tablet 5 mg PO DAILY 06/17/24 09/20/24 Unknown History bethanechol chloride 25 mg tablet 25 mg PO BID 09/16/24 09/20/24 Unknown History naloxegol 25 mg tablet (Movantik) 25 mg PO DAILY 09/16/24 09/20/24 Unknown History Exam Height,Weight and Vital Signs: Height 6 ft 4 in Weight 106.594 kg Narrative Narrative: Brain MRI 2023 IMPRESSION: 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 No change in appearance of the surgical cavity in the adjacent right frontal lobe. Scattered nonspecific FLAIR hyperintense foci in white matter most likely reflect chronic small vessel disease. No acute findings. ECG 12-Lead 2022 Please click on pdf link to open report [id number] Ventricular Rate: 85 BPM Atrial Rate: 85 BPM P-R Interval: 164 ms QRS Duration: 92 ms Q-T Interval: 376 ms QTC Calculation(Bazett): 447 ms P [place]: 56 degrees R [place]: 66 degrees T [place]: 43 degrees Normal sinus rhythm Normal ECG When compared with ECG of 18-APR-2023 20:08, Sinus rhythm has replaced Supraventricular tachycardia Confirmed by GARY UMANZOR ([id number]) on 04/19/2023 9:58:37 AM Assessment and Plan Assessment Anesthesia Assessment: Chart Reviewed Documented by User: Liana Robertson DO 09/20/24 08:50 [facility] Past Medical History Medical History (Updated 09/18/24 @ 13:33 by Ana Berrios RN) Implantable intrathecal infusion pump present Postoperative urinary retention Opioid dependence, uncomplicated Complex regional pain syndrome i of lower limb, bilateral Insomnia, unspecified Chronic pain disorder Postlaminectomy syndrome, not elsewhere classified Family History Family history of problems with anesthesia: No Surgical History Surgical History (Updated 09/20/24 @ 07:57 by Rosario Berry RN) History of surgery H/O knee surgery History of back surgery History of Problems with Anesthesia: Yes (post-op urinary retention) Social History Social History Are you a primary lawn caretaker to a significant other at home: No Do you presently have visiting nurse or other home services: No Comment: Balance issues at home Patient Tobacco Use Status: Never used Tobacco Use of substances other than those prescribed or required for medical reasons: No Have you been hit, kicked, punched, or otherwise hurt by someone within the past year? If so, by whom?: No Are you DNR?: Yes Advance Directives: No Advance Directives Information Provided: No Advance Directives on File: No Recently lost weight without trying: No How much weight loss: Not applicable Eating poorly because of decreased appetite: No Nutrition screen score: 0 Nutrition Risks: No Nutritional Risk Poor oral hygiene: Yes (missing tooth x1, caps throughout) Meds Allergies Allergy/AdvReac Type Severity Reaction Status Date / Time No Known Allergies Allergy Verified 09/20/24 07:55 Home Medications ?Medication ?Instructions ?Recorded ?Confirmed ?Last Taken ?Type diazepam 10 mg tablet 10 mg PO BID 01/09/24 09/20/24 Unknown History lamotrigine 200 mg tablet 200 mg PO BID 01/09/24 09/20/24 Unknown History omeprazole 20 mg capsule,delayed 20 mg PO DAILY 01/09/24 09/20/24 Unknown History release zolpidem 10 mg tablet 10 mg PO BEDTIME PRN Insomnia 01/09/24 09/20/24 Unknown History escitalopram oxalate 20 mg tablet 20 mg PO DAILY 03/29/24 09/20/24 Unknown History finasteride 5 mg tablet 5 mg PO DAILY 06/17/24 09/20/24 Unknown History bethanechol chloride 25 mg tablet 25 mg PO BID 09/16/24 09/20/24 Unknown History naloxegol 25 mg tablet (Movantik) 25 mg PO DAILY 09/16/24 09/20/24 Unknown History Exam Exam Date and Time: 09/20/24 0839 Height,Weight and Vital Signs: Height 6 ft 4 in Weight 106.594 kg Vital Signs Temperature 97.6 F 09/20/24 07:59 Pulse Rate 85 09/20/24 07:59 Respiratory Rate 16 09/20/24 07:59 Blood Pressure 112/50 L 09/20/24 07:59 Pulse Oximetry 97 09/20/24 07:59 Oxygen Delivery Method Room Air 09/20/24 07:59 Temperature 97.6 F 09/20/24 07:59 Pulse Rate 85 09/20/24 07:59 Respiratory Rate 16 09/20/24 07:59 Blood Pressure 112/50 L 09/20/24 07:59 Pulse Oximetry 97 09/20/24 07:59 Oxygen Delivery Method Room Air 09/20/24 07:59 Airway Mallampati Class: II TM Dist: >3cm Neck ROM: Full Loose/Missing/Broken Teeth: Yes (missing tooth; nothing loose or broken) Heart: S1S2 Lungs: CTAB Assessment and Plan Assessment Anesthesia Assessment: Anesthesia Plan Discussed and Chart Reviewed Final Anesthetic Review Family History of Problems with Anesthesia: No History of Problems with Anesthesia: Yes (post-op urinary retention) NPO: Yes ASA Class: III Final Preanesthetic Review: No Changes in Pt Med Stat, Meds/Allgs Chart Reviewed, Consent Obtained/Reviewed, Anes Risks/Benef Reviewed and DNR Form (If Appl.) (DNR/DNI suspended until discharge from PACU) Patient Risk: Intermediate Procedure Risk: Intermediate Anesthetic Plan Anesthetic Plan: GA and Agree w/ Assess. and Plan Disposition: Standard PACU
[2024-09-20] MEDS: Lactated Ringers 1,000 ML 100 ML IVCONT (08:39)
--- NOTE | 2024-09-20 09:36 | MHC.SHP ---
Pre-Procedural Eval Section A - 24 Hr Update-Section A only Date of Service: 09/20/24 The patient is an INPATIENT: No Changes since office visit: Yes Patient answered all questions The patient has been examined within 24 hours of the surgical procedure. The History & Physical has been completed within 30 days and I have reviewed it.: No Section B - Complete if H&P > 30 days Chief Complaint: Postlaminectomy syndrome,presence function implant Details of Present Illness: As above Relevant Family History (Specify if Yes): No Relevant Social History: None Present Medications: None Medical History: No relevant PMH History of Previous Operations: Relevant previous surgery/procedure and date(s) Allergies: Allergies Allergy/AdvReac Type Severity Reaction Status Date / Time No Known Allergies Allergy Verified 09/20/24 07:55 Review of Systems Sugical H&P ROS: Negative: Constitution, Cardiovascular, Respiratory, Neurological, Psychiatric, Hem-Onc, Allergic/Immunologic, Integumentary, Endocrine and Eyes/Ears/Nose/Throat and Yes, Specify: Gastrointestinal (GERD), Genitourinary (History of urinary retention after general anesthesia) and Musculoskeletal (Postlaminectomy syndrome) Exam Surgical H&P Exam: Normal: HEENT, Normal: Heart, Normal: Lungs, Normal: Extremities, Normal: Abdomen, Normal: Skin and Normal: Neurological Plan Diagnosis/Plan: Unchanged I have reviewed the history and physical and performed a pertinent physical examination on my patient. No changes have occurred unless specified. Time Spent With Patient Time: Total time managing care of this patient today __5__ minutes.
--- NOTE | 2024-09-20 13:59 | PM.OP ---
Brief Operative Note Date of Service: 09/20/24 Pre-op diagnosis: Postlaminectomy syndrome, intrathecal drug delivery system pain pump end of life. Post-op diagnosis: same Procedure: Removal of the intrathecal pain pump 20 mL SynchroMed 2 and replacement with 40 mL SynchroMed 3 pain pump, revision of the intrathecal catheter. Implants: Intrathecal catheter ascenda and intrathecal pain pump SynchroMed 3. Surgeon: Surjit Godoy MD Anesthesia: GLMA Was an Bakery Manager used for this Procedure?: No Estimated blood loss (mL): 18 Condition: stable Disposition: PACU
--- NOTE | 2024-09-20 14:03 | W.PM.OPN ---
Operative Note Operative Note Date of Service: 09/20/24 Narrative: Removal of the end of life intrathecal pain pump SynchroMed 2 20 mL and replacement with new SynchroMed 3 pain pump 40 mL as well as revision of the intrathecal catheter with introduction of the new intrathecal catheter Brookeenda. 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 Seven years ago he was given in [facility] intrathecal pain pump. He was complaining on the device not providing significant pain relief for him. Preoperatively on pump refills he had significant deficiency of the intrathecal medication volume demonstrating retention of the medication in the system. Attempt of dye study was performed however I was not able to aspirate CSF from the catheter on dye study and therefore dye study was abandoned. Intrathecal pain pump came to the end of life and patient came today to the operating room to partially remove old intrathecal catheter, remove old intrathecal pain pump SynchroMed 2 volume 20 mL and replace it with new SynchroMed 3 intrathecal pain pump. Patient came to the operating room after explaining informed consent where risks of bleeding, infection, peripheral nerve damage, spinal cord damage and headache were explained to the patient. The patient was positioned supine on the operating table [place] [employer] monitors were applied, general anesthesia with LMA was initiated. After that patient was transferred on right lateral decubitus position with all pressure points protected. Time-out was performed delineating name and date of of the patient, risks for the patient, need for DVT prophylaxis antibiotics preoperative, risk of fire. Before surgery patient received 2 g of cefazolin and because the procedure was prolonged he received another 2g of cefazolin at 03:00 hours of operative time. The patient is left lateral abdomen in the area of the previous scar was prepped with ChloraPrep and then the prep was extended to the patient's flank and entire lower back. The U drapes were used to sterilely draped the patient and on top of the you drapes laparoscopy drape was applied. After that Ioban film was used to cover the entire operative field. Attention 1st was concentrated on the abdominal area where the patient had scar from previous implantation of the pain pump. The scar was infiltrated with mixture of lidocaine 2% and ropivacaine 0.5% one-to-one and after that 10 blade scalpel was used to make an incision through the skin and subcutaneous tissues. Hemostasis was obtained and after that the capsule of the pump pocket was incised. At this moment we noticed necrotic tissues and serose exudate in the pain pump pocket. We also noticed that the pain pump was enclosed into synthetically made antibiotic containing pain pump pouch. The pouch was partially resected. The necrotic tissues were sent for pathology, the serous exudate was sent for culture and Gram stain. After that anchoring suture was severed and old pain pump was delivered to the level of the skin. At this moment intrathecal catheter was severed, unfortunately no CSF was coming from the catheter. Three clips were applied to the body of the remaining intrathecal catheter and then the intrathecal catheter was buried in the tissues below the surface of the tissue of the antibiotic pouch on the lateral superior corner of the wound using 0 silk suture. After that we waited for several minutes until the results of the Gram stain were delivered to us. The Gram stain was negative. The decision was made to perform the revision of the intrathecal catheter. Attention was concentrated on the midline lower back of the patient. Sterilely draped C-arm was brought over the operating field and sq picture of the L5-L4 and L3 vertebra were demonstrated on the screen. Hardware at L5-S1 intervertebral areas were noted. The incision alongside the L4 and L5 spinous processes in the back was made using 10 blade scalpel. After that the wound was widened and deepened using dull dissection until prevertebral fascia was freed from overlying tissues. 14 gauge 10 cm introducer needle was obtained and inserted between L3 and L4 vertebral bodies. The needle was advanced under anterior posterior and lateral views when tip of the needle was positioned in the center of the spinal canal stylette of the needle was removed and clear flow of CSF was demonstrated from the hub of the needle. Intrathecal catheter was obtained and advanced toward T10-T11 intrathecal space. Pursestring suture was applied around the introducer needle and closely tied after that intrathecal needle was withdrawn and care was taken to keep the tip of the catheter at T10-T11 intrathecal space. Anchoring device was obtained and it was slide over the intrathecal catheter to the prevertebral fascia where it was activated. Three anchoring sutures were used to suture the anchoring device to the prevertebral fascia. After that thorough irrigation was performed on both wounds with vancomycin containing normal saline. The tunneling device was used to connect both wounds with small flank incision made to connect both wounds. The intrathecal catheter was dislodged to the area of the abdomen. It was trimmed appropriately and sutureless connection device was applied on the intrathecal catheter. After that the sutureless connection device was connected to the body of new SynchroMed 3 intrathecal pain pump. Noncoring needle was used to aspirate the side port of the pain pump, clear flow of CSF was demonstrated into the syringe. After that 2 anchoring sutures were applied to most superior lateral and most superior medial corners of the pain pump pocket the bracket on the body of the pocket were connected to the anchoring sutures, the intrathecal catheter was gathered below the body of the pain pump device and the pain pump was dislodged into the wound. Anchoring sutures were tied. After that irrigation was performed on all 3 wounds with normal saline containing vancomycin. 0- 0 Polysorb sutures were used to close the abdominal and back wounds. 2-0 Polysorb sutures were used to approximate the level of the skin. Ana Cristina were applied to the level of the skin to both abdominal and back wound, single suture 0-0 silk was applied to the flank puncture wound for accommodation of the catheter tunneling. The bacitracin was applied to all 3 wounds and sterile dressing using 4 x 4 and Medipore tape was applied. Abdominal binder was applied. The patient tolerated procedure well.
== END 2024-09-20 15:42 | disposition home or self-care (01) ==
PROVIDERS: PCP Internal Medicine; Visit Provider Anesthesiology
PROC: (CPT 62362; principal; 2024-09-20 09:10)
DX: Z45.1 Encounter for adjustment and management of infusion pump (principal); M96.1 Postlaminectomy syndrome, not elsewhere classified; G90.523 Complex regional pain syndrome I of lower limb, bilateral; Z96.89 Presence of other specified functional implants; F11.20 Opioid dependence, uncomplicated; G47.00 Insomnia, unspecified; Z66 Do not resuscitate
CPT/HCPCS: 62362; 62350; 87070; 87073; 87205; 88304; C1755; C1772; J0690; J1100; J2003; J2405; J2704; J2795; J3010; J3370

== ENCOUNTER → 2024-09-20 07:21 | Outpatient (BNV) | payer MEDICARE, OTHER, SELFPAY | PROVIDERS: PCP Internal Medicine; Visit Provider Anesthesiology | DX: Z45.1 Encounter for adjustment and management of infusion pump (principal) | CPT/HCPCS: 62350; 62362 ==

== ENCOUNTER 2024-09-26 08:37 | Outpatient (AMB) | payer MEDICARE, OTHER, SELFPAY ==
--- NOTE | 2024-09-26 08:46 | A.OFFVIS_ITS ---
Vital Signs 09/26/24 10:19 Height 6 ft 4 in Weight 246 lb 2 oz BMI 30.0 BP 119/55 L Blood Pressure Location Rt brachial Position Sitting Pulse 97 Pulse Source Pulse Oximeter Pulse Oximetry (%) 96 Oxygen Delivery Method Room Air Intake Visit Reasons: S/p ITDD Pain Pump Revision 09/20/24 Intake Note: Pain today 06/20 Musculoskeletal Physician Required: No Accompanied by: Spouse Allergies No Known Allergies Allergy (Verified 09/26/24 10:20) HPI Comments Details: Chris is in the office today after the revision of the intrathecal pain pump. He had a new catheter inserted as well as new intrathecal pain pump. He does not want morphine in his pump anymore. Why I decided to switch him to Prialt alone. We need 40 cc of preservative-free normal saline and Prialt 5 micro g per mL. Dressing change was performed today. The wounds are dry, there is papular red miller on all 3 wounds surrounding. Most likely reaction to the bacitracin. No swelling no tenderness on palpation, patient reports itching the lesions. No pathological discharge, the wounds were washed with ChloraPrep, Dry dressings were applied today. I will see this patient in 1 week. If we have medicine at that time I will change the medication. Patient is afraid to go into withdrawal when morphine is terminated. I explained to him that if he continues to take oxycodone which I prescribed to him after surgery he unlikely will go to withdrawal. I explained oxycodone taper for him. I also told him that I can prescribe him clonidine however he stated that his blood pressure diastolic is 55 therefore it is unlikely clonidine will be prescribed. Sedative medications such as Benadryl and hydroxyzine H1 and H2 blockers could be used to mitigate the withdrawal symptoms as well. Patient expressed understanding. Prior: The patient is on the pump now which is currently not supported by [employer]. It is pump which continues to run but in 4 months even I would refuse to fill this pump up. We need to schedule a replacement. I investigated the issue of Prialt and it looks like that Prialt is free of charge and insurances of this patient will cover the entire cost of the medication. At the same time Prialt is very sensitive medication to deliver and the doses are very small. I would like to perform a revision of the pain pump and revision of intrathecal catheter if it is necessary and only after that start Prialt medication for this patient. The issue of provider in [place] was not raised today. The provider in [place] apparently is in network for this patient and I am not. Intrathecal pain pump was read today continues to receive 100 micro g of morphine an hour which cast into 2.4 mg of morphine a day. He has 14 cc of the medication in the pump. It should be enough for us to perform pump revision and replacement with this current medication. Prior: we attempted to perform intrathecal catheter dye study unfortunately I was not able to aspirate anything from the side port. Therefore possibility of exploration of the intrathecal catheter and removal and replacement of the old intrathecal catheter exists. very pleasant 73 years old gentleman who presents in my office with complains on pain in lower back and sensation of burning in bilateral lower extremities. She reports that pain in bilateral lower extremity started in 2018 after a chiropractor perform some sort of manipulation on his back. Even before that he was suffering from postlaminectomy syndrome which was treated in [place] with intrathecal pain pump. His pump is 6 years old and due to be replaced in fall of 2023. He reports that he can not sleep normally can not do activities of daily living can not take care of himself can not function normally he is retired individual. He reports that he needs walker occasionally for amb ulation. He reports that most comfortable position for him is in the left hand side in the bed and he also reports that when he is sitting or standing his pain in bilateral lower extremities and unbearable.He currently onadmixture of Morphine 10 mg/ ml and 30 mg of bupivacaine, as well as clonidine 650 mcg per ml. He receives continuous infusion of morphine 1.835 mg per day and corresponding doses of the clonidine and bupivacaine. He does not have PTM device. He reports that PTM device make him ?addicted to morphine ?. He reports his pain in terms of tissue damage as spreading radiating in piercing sensation. Apparently he had multiple images of his lumbar spine done in [facility] last MRI was done in 2014. He reports that he is taking herbal or homeopathic treatments for his pain. He received multiple nerve blocks epidurals and apparently he had 2 trials of spinal cord stimulator with [facility] pain management. He reports past medical history of peripheral arterial disease with status post stent in the left femoral artery, he has prostate problem arthritis. His past surgical history significant for left total knee replacement in 2008. He had surgery for back fusion in 2009 and he reported cranial surgery in 2008. He is currently taking Ambien diazepam bethanechol and lamotrigine. He denies smoking cigarettes admits occasional rare take of alcohol drinks decaffeinated coffee and denies recreational drugs. [facility] Medical History (Updated 09/18/24 @ 13:33 by Ana Berrios RN) Implantable intrathecal infusion pump present Postoperative urinary retention Opioid dependence, uncomplicated Complex regional pain syndrome i of lower limb, bilateral Insomnia, unspecified Chronic pain disorder Postlaminectomy syndrome, not elsewhere classified Surgical History (Updated 09/20/24 @ 07:57 by Rosario Berry RN) History of surgery H/O knee surgery History of back surgery Social History Are you a primary health care specialist to a significant other at home: No Do you presently have visiting nurse or other home services: No Comment: Balance issues at home Patient Tobacco Use Status: Never used Tobacco Review of Systems Const All systems reviewed & are unremarkable except as noted in HPI and below ENT Reports Normal hearing present Neuro Reports Normal hearing present, Denies Abnormal speech present, Denies confusion and Denies Sensory deficit (Neuro) Psych Denies confusion Physical Exam Vital Signs: Last Vital Signs Pulse 97 09/26/24 10:19 BP 119/55 L 09/26/24 10:19 Pulse Ox 96 09/26/24 10:19 Oxygen Delivery Method Room Air 09/26/24 10:19 BMI result Body Mass Index 30.0 Const General: No confusion Orientation/consciousness: No confusion Eyes General: appearance normal, both eyes and all related structures Pupils: Equal, round and reactive pupils present EOM: EOMs intact bilaterally Neck Neck: Yes full ROM Chest Chest palpation & inspection: normal inspection of the chest Resp Effort & Inspection: normal respiratory effort, able to speak in complete sentences, normal respiratory pattern, no audible wheezes and no cough Cardio Jugular venous distension: no JVD GI Inspection: Yes normal to inspection Back/Spine/Pelvis Other: He has very well-healed scar in inspection in the projection of the L4-5 and S1 vertebra spinous processes. He also has scar in the left lower abdomen in Pfannenstiel fashion evidence of 2nd fusion. He is in no obvious mild distress today he prefers to positioned himself flat on the examination table during the conversation. No tenderness on palpation in paraspinal spinal region lumbar spine. Mild tenderness on palpation in projection of the sacral bone. SLR is negative bilaterally. Asaf's test is negative bilaterally. Valsalva maneuver does not aggravate his pain. He denies incontinence with urine or stool. He denies urinary retention Neuro General: No confusion Cranial nerves: Yes Equal, round and reactive pupils present and Yes Normal hearing present Speech: No Abnormal speech present Gait exam (Neuro): Normal gait present Motor exam (neuro): 5/5 motor strength present throughout Sensory Exam: No Sensory deficit (Neuro) Extrem General: No pedal edema Psych Speech and movement: Normal speech and movement present Affect: normal affect Attitude: cooperative Thought process: Normal thought process present Thought content: Normal thought content present Insight: Good insight present (Psych) Judgement: Good judgement present (Psych) Assessment & Plan Assessment & Plan (1) Postlaminectomy syndrome: Code(s): M96.1 - Postlaminectomy syndrome, not elsewhere classified Category: Medical (2) Chronic pain disorder: Code(s): G89.4 - Chronic pain syndrome Category: Medical (3) Implantable intrathecal infusion pump present: Code(s): Z96.89 - Presence of other specified functional implants Category: Medical Plan: Patient is here after pain pump replacement and new intrathecal catheter in [facility]. He is doing well description of the dressing changes as above. Most likely reaction to the bacitracin. I will see him next time in 1 week and I will remove his pura. If it is possible we will change his medication to the Prialt alone he does not want morphine anymore. If he will go to withdrawal I will prescribe him hydroxyzine and or clonidine. His diastolic pressure is low so clonidine is under question. Plan I here by testify that I spent 36 minutes in conversation with this patient as well as planning his care and organizing this note.. Coding Level of Care Code Est Pt Level 4 (79694) Diagnoses Postlaminectomy syndrome M96.1 Chronic pain disorder G89.4 Implantable intrathecal infusion pump present Z96.89
[2024-09-26 10:19] VITALS: BP 119/55; PULSE 97; O2SAT 96
== END 2024-09-26 09:04 | disposition home or self-care (01) ==
PROVIDERS: PCP Internal Medicine; Visit Provider Anesthesiology
DX: M96.1 Postlaminectomy syndrome, not elsewhere classified (principal); G89.4 Chronic pain syndrome; Z96.89 Presence of other specified functional implants
CPT/HCPCS: 99214

== ENCOUNTER → 2024-09-26 08:37 | Outpatient (BNVA) | payer MEDICARE, OTHER, SELFPAY | PROVIDERS: PCP Internal Medicine; Visit Provider Anesthesiology | DX: M96.1 Postlaminectomy syndrome, not elsewhere classified (principal); G89.4 Chronic pain syndrome; Z96.89 Presence of other specified functional implants | CPT/HCPCS: 99212 ==

== ENCOUNTER 2024-10-03 08:32 | Outpatient (AMB) | payer MEDICARE, OTHER, SELFPAY ==
--- NOTE | 2024-10-03 08:39 | MHC.OFFVIS ---
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 He had a new catheter inserted as well as new intrathecal pain pump. He does not want morphine in his pump anymore. Unfortunately we can not abruptly stopped his morphine we need to taper down. Otherwise he will go into withdrawal. His concentration of the morphine in the pump is 10 milligrams/mL. He received 1.6 mg of morphine a day. Therefore we need to into next refill repair of the medication comprising of morphine 10 milligrams/mL and Prialt 10 micro g per mL. This way we will start his treatment with 1.6 micro g of Prialt corresponding with 1.6 mg of morphine a day. Dressing change today the papular miller is better however did not disappear at all. Nevertheless the wounds completely healed. All sutures and pura were removed sterile dressings were applied. Small 1 mm diastasis between the lips of the flank Currently he is on is papular red miller on all 3 wounds are noted. Patient is instructed not to remove the dressing on the flank wound for 2 weeks. I will see him in 2 weeks and I will refill his pump with concentrations as above. I also will continue his dose of morphine of 1.6 mg per day and I will continue with Prialt of 1.6 micro g per day. Prior: The patient is on the pump now which is currently not supported by [employer]. It is pump which continues to run but in 4 months even I would refuse to fill this pump up. We need to schedule a replacement. I investigated the issue of Prialt and it looks like that Prialt is free of charge and insurances of this patient will cover the entire cost of the medication. At the same time Prialt is very sensitive medication to deliver and the doses are very small. I would like to perform a revision of the pain pump and revision of intrathecal catheter if it is necessary and only after that start Prialt medication for this patient. The issue of provider in [place] was not raised today. The provider in [place] apparently is in network for this patient and I am not. Intrathecal pain pump was read today continues to receive 100 micro g of morphine an hour which cast into 2.4 mg of morphine a day. He has 14 cc of the medication in the pump. It should be enough for us to perform pump revision and replacement with this current medication. Prior: we attempted to perform intrathecal catheter dye study unfortunately I was not able to aspirate anything from the side port. Therefore possibility of exploration of the intrathecal catheter and removal and replacement of the old intrathecal catheter exists. very pleasant 73 years old gentleman who presents in my office with complains on pain in lower back and sensation of burning in bilateral lower extremities. She reports that pain in bilateral lower extremity started in 2018 after a chiropractor perform some sort of manipulation on his back. Even before that he was suffering from postlaminectomy syndrome which was treated in [place] with intrathecal pain pump. His pump is 6 years old and due to be replaced in fall of 2023. He reports that he can not sleep normally can not do activities of daily living can not take care of himself can not function normally he is retired individual. He reports that he needs walker occasionally for ambulation. He reports that most comfortable position for him is in the left hand side in the bed and he also reports that when he is sitting or standing his pain in bilateral lower extremities and unbearable.He currently onadmixture of Morphine 10 mg/ ml and 30 mg of bupivacaine, as well as clonidine 650 mcg per ml. He receives continuous infusion of morphine 1.835 mg per day and corresponding doses of the clonidine and bupivacaine. He does not have PTM device. He reports that PTM device make him ?addicted to morphine ?. He reports his pain in terms of tissue damage as spreading radiating in piercing sensation. Apparently he had multiple images of his lumbar spine done in [facility] last MRI was done in 2014. He reports that he is taking herbal or homeopathic treatments for his pain. He received multiple nerve blocks epidurals and apparently he had 2 trials of spinal cord stimulator with [facility] pain management. He reports past medical history of peripheral arterial disease with status post stent in the left femoral artery, he has prostate problem arthritis. His past surgical history significant for left total knee replacement in 2008. He had surgery for back fusion in 2009 and he reported cranial surgery in 2008. He is currently taking Ambien diazepam bethanechol and lamotrigine. He denies smoking cigarettes admits occasional rare take of alcohol drinks decaffeinated coffee and denies recreational drugs. [facility] Medical History (Updated 09/18/24 @ 13:33 by Ana Berrios RN) Implantable intrathecal infusion pump present Postoperative urinary retention Opioid dependence, uncomplicated Complex regional pain syndrome i of lower limb, bilateral Insomnia, unspecified Chronic pain disorder Postlaminectomy syndrome, not elsewhere classified Surgical History (Updated 09/20/24 @ 07:57 by Rosario Berry RN) History of surgery H/O knee surgery History of back surgery Social History Are you a primary career development coordinator/teacher to a significant other at home: No Do you presently have visiting nurse or other home services: No Comment: Balance issues at home Patient Tobacco Use Status: Never used Tobacco Review of Systems Const All systems reviewed & are unremarkable except as noted in HPI and below ENT Reports Normal hearing present Neuro Reports Normal hearing present, Denies Abnormal speech present, Denies confusion and Denies Sensory deficit (Neuro) Psych Denies confusion Physical Exam Vital Signs: Last Vital Signs Pulse 87 10/03/24 08:46 BP 138/69 10/03/24 08:46 BMI result Body Mass Index 29.9 Const General: No confusion Orientation/consciousness: No confusion Eyes General: appearance normal, both eyes and all related structures Pupils: Equal, round and reactive pupils present EOM: EOMs intact bilaterally Neck Neck: Yes full ROM Chest Chest palpation & inspection: normal inspection of the chest Resp Effort & Inspection: normal respiratory effort, able to speak in complete sentences, normal respiratory pattern, no audible wheezes and no cough Cardio Jugular venous distension: no JVD GI Inspection: Yes normal to inspection Back/Spine/Pelvis Other: He has very well-healed scar in inspection in the projection of the L4-5 and S1 vertebra spinous processes. He also has scar in the left lower abdomen in Pfannenstiel fashion evidence of 2nd fusion. He is in no obvious mild distress today he prefers to positioned himself flat on the examination table during the conversation. No tenderness on palpation in paraspinal spinal region lumbar spine. Mild tenderness on palpation in projection of the sacral bone. SLR is negative bilaterally. Asaf's test is negative bilaterally. Valsalva maneuver does not aggravate his pain. He denies incontinence with urine or stool. He denies urinary retention Neuro General: No confusion Cranial nerves: Yes Equal, round and reactive pupils present and Yes Normal hearing present Speech: No Abnormal speech present Gait exam (Neuro): Normal gait present Motor exam (neuro): 5/5 motor strength present throughout Sensory Exam: No Sensory deficit (Neuro) Extrem General: No pedal edema Psych Speech and movement: Normal speech and movement present Affect: normal affect Attitude: cooperative Thought process: Normal thought process present Thought content: Normal thought content present Insight: Good insight present (Psych) Judgement: Good judgement present (Psych) Assessment & Plan Assessment & Plan (1) Postlaminectomy syndrome: Code(s): M96.1 - Postlaminectomy syndrome, not elsewhere classified Category: Medical (2) Chronic pain disorder: Code(s): G89.4 - Chronic pain syndrome Category: Medical (3) Implantable intrathecal infusion pump present: Code(s): Z96.89 - Presence of other specified functional implants Category: Medical Plan: Patient is here after pain pump replacement and new intrathecal catheter insertion. He is doing well the wound dressing changes above. I will see him in 2 weeks when I will perform changing of his meds it is in for Prialt. New concentration would be as such 40 cc of preservative-free normal saline containing 10 mg of morphine per mL and 10 micro g of Prialt per mL. The starting daily dose of Prialt will be 1.6 micro g per day with corresponding dose of morphine 1.6 mg per day. In the future by decreasing morphine concentration we will taper down the dose of the morphine, provided he does not have any side effects from Prialt. Plan I here by testify that I spent 30 minutes in conversation with this patient as well as planning his care and organizing this note.. Coding Level of Care Code Est Pt Level 4 (53405) Diagnoses Postlaminectomy syndrome M96.1 Chronic pain disorder G89.4 Implantable intrathecal infusion pump present Z96.89
[2024-10-03 08:46] VITALS: BP 138/69; PULSE 87; BMI 29.9
== END 2024-10-03 09:08 | disposition home or self-care (01) ==
PROVIDERS: PCP Internal Medicine; Visit Provider Anesthesiology
DX: M96.1 Postlaminectomy syndrome, not elsewhere classified (principal); G89.4 Chronic pain syndrome; Z96.89 Presence of other specified functional implants
CPT/HCPCS: 99214

== ENCOUNTER → 2024-10-03 08:32 | Outpatient (BNVA) | payer MEDICARE, OTHER, SELFPAY | PROVIDERS: PCP Internal Medicine; Visit Provider Anesthesiology | DX: Z45.89 Encounter for adjustment and management of other implanted devices (principal); M96.1 Postlaminectomy syndrome, not elsewhere classified; G89.4 Chronic pain syndrome; Z96.89 Presence of other specified functional implants | CPT/HCPCS: 99212 ==

== ENCOUNTER → 2024-10-17 08:56 | Outpatient (BNVA) | payer MEDICARE, OTHER, SELFPAY | PROVIDERS: PCP Internal Medicine; Visit Provider Anesthesiology | DX: M96.1 Postlaminectomy syndrome, not elsewhere classified (principal); G89.4 Chronic pain syndrome; Z45.1 Encounter for adjustment and management of infusion pump | CPT/HCPCS: 62370; 99212 ==

== ENCOUNTER 2024-11-04 09:08 | Outpatient (AMB) | payer MEDICARE, OTHER, SELFPAY ==
[2024-11-04 09:15] VITALS: BP 118/60; PULSE 91; O2SAT 96; BMI 29.2
--- NOTE | 2024-11-04 09:15 | MHC.OFFVIS ---
Vital Signs 11/04/24 09:15 Height 6 ft 4 in Weight 240 lb BMI 29.2 BP 118/60 Blood Pressure Location Lt brachial Position Sitting Pulse 91 Pulse Source Pulse Oximeter Pulse Oximetry (%) 96 Oxygen Delivery Method Room Air Intake Visit Reasons: Follow up [place] Required: No Allergies No Known Allergies Allergy (Verified 11/04/24 09:16) Medication List - Last Reconciled 11/04/24 by Fabi Bennett, [employer] bethanechol chloride 25 mg PO BID cephalexin 1,000 mg (2 x 500 mg) PO Q8H 16 days diazepam 10 mg PO BID escitalopram oxalate 20 mg PO DAILY finasteride 5 mg PO DAILY lamotrigine 200 mg PO BID naloxegol (Movantik) 25 mg PO DAILY naloxone 4 mg/actuation 4 mg intranasal Q2M 1 day omeprazole 20 mg PO DAILY oxycodone 5 mg PO Q4H PRN 8 days MDD 6 pills zolpidem 10 mg PO BEDTIME PRN HPI Comments Details: Chris is my office today with complains on ataxia of bilateral lower extremities as well as increase of constipation and urinary retention. While ataxia could be attributed to the Prialt it is unlikely that constipation and urinary retention worsening coming from the Prialt medication. Nevertheless I decided to stop Prialt. The only option I have for the patient to try to help his pain would be baclofen. We will miller in the medication preparation of morphine 40 cc preservative-free normal saline 10 milligrams/mL. After the patient will receive the last drop of his Prialt we will be planning to combine his morphine medication with the baclofen. Today I decrease the dose of his medication from 1.6 mg a day to 1.1 mg a day to help patient to make his ataxia better and possibly decrease the urinary retention that the constipation. I will see this patient in 3 days, I will change medication in his pump. Prior: The patient is on the pump now which is currently not supported by [employer]. It is pump which continues to run but in 4 months even I would refuse to fill this pump up. We need to schedule a replacement. I investigated the issue of Prialt and it looks like that Prialt is free of charge and insurances of this patient will cover the entire cost of the medication. At the same time Prialt is very sensitive medication to deliver and the doses are very small. I would like to perform a revision of the pain pump and revision of intrathecal catheter if it is necessary and only after that start Prialt medication for this patient. The issue of provider in [place] was not raised today. [place] apparently is in network for this patient and I am not. Intrathecal pain pump was read today continues to receive 100 micro g of morphine an hour which cast into 2.4 mg of morphine a day. He has 14 cc of the medication in the pump. It should be enough for us to perform pump revision and replacement with this current medication. Prior: we attempted to perform intrathecal catheter dye study unfortunately I was not able to aspirate anything from the side port. Therefore possibility of exploration of the intrathecal catheter and removal and replacement of the old intrathecal catheter exists. very pleasant 73 years old gentleman who presents in my office with complains on pain in lower back and sensation of burning in bilateral lower extremities. She reports that pain in bilateral lower extremity started in 2018 after a chiropractor perform some sort of manipulation on his back. Even before that he was suffering from postlaminectomy syndrome which was treated in [place] with intrathecal pain pump. His pump is 6 years old and due to be replaced in fall of 2023. He reports that he can not sleep normally can not do activities of daily living can not take care of himself can not function normally he is retired individual. He reports that he needs walker occasionally for ambulation. He reports that most comfortable position for him is in the left hand side in the bed and he also reports that when he is sitting or standing his pain in bilateral lower extremities and unbearable.He currently onadmixture of Morphine 10 mg/ ml and 30 mg of bupivacaine, as well as clonidine 650 mcg per ml. He receives continuous infusion of morphine 1.835 mg per day and corresponding doses of the clonidine and bupivacaine. He does not have PTM device. He reports that PTM device make him ?addicted to morphine ?. He reports his pain in terms of tissue damage as spreading radiating in piercing sensation. Apparently he had multiple images of his lumbar spine done in [facility] last MRI was done in 2014. He reports that he is taking herbal or homeopathic treatments for his pain. He received multiple nerve blocks epidurals and apparently he had 2 trials of spinal cord stimulator with [facility]. He reports past medical history of peripheral arterial disease with status post stent in the left femoral artery, he has prostate problem arthritis. His past surgical history significant for left total knee replacement in 2008. He had surgery for back fusion in 2009 and he reported cranial surgery in 2008. He is currently taking Ambien diazepam bethanechol and lamotrigine. He denies smoking cigarettes admits occasional rare take of alcohol drinks decaffeinated coffee and denies recreational drugs. [facility] Medical History (Updated 09/18/24 @ 13:33 by Ana Berrios RN) Implantable intrathecal infusion pump present Postoperative urinary retention Opioid dependence, uncomplicated Complex regional pain syndrome i of lower limb, bilateral Insomnia, unspecified Chronic pain disorder Postlaminectomy syndrome, not elsewhere classified Surgical History (Updated 09/20/24 @ 07:57 by Rosario Berry RN) History of surgery H/O knee surgery History of back surgery Social History Are you a primary care support representative to a significant other at home: No Do you presently have visiting nurse or other home services: No Comment: Balance issues at home Patient Tobacco Use Status: Never used Tobacco Review of Systems Const All systems reviewed & are unremarkable except as noted in HPI and below ENT Reports Normal hearing present Neuro Reports Normal hearing present, Denies Abnormal speech present, Denies confusion and Denies Sensory deficit (Neuro) Psych Denies confusion Physical Exam Vital Signs: Last Vital Signs Pulse 91 11/04/24 09:15 BP 118/60 11/04/24 09:15 Pulse Ox 96 11/04/24 09:15 Oxygen Delivery Method Room Air 11/04/24 09:15 BMI result Body Mass Index 29.2 Const General: No confusion Orientation/consciousness: No confusion Eyes General: appearance normal, both eyes and all related structures Pupils: Equal, round and reactive pupils present EOM: EOMs intact bilaterally Neck Neck: Yes full ROM Chest Chest palpation & inspection: normal inspection of the chest Resp Effort & Inspection: normal respiratory effort, able to speak in complete sentences, normal respiratory pattern, no audible wheezes and no cough Cardio Jugular venous distension: no JVD GI Inspection: Yes normal to inspection Back/Spine/Pelvis Other: He has very well-healed scar in inspection in the projection of the L4-5 and S1 vertebra spinous processes. He also has scar in the left lower abdomen in Pfannenstiel fashion evidence of 2nd fusion. He is in no obvious mild distress today he prefers to positioned himself flat on the examination table during the conversation. No tenderness on palpation in paraspinal spinal region lumbar spine. Mild tenderness on palpation in projection of the sacral bone. SLR is negative bilaterally. Asaf's test is negative bilaterally. Valsalva maneuver does not aggravate his pain. He denies incontinence with urine or stool. He denies urinary retention Neuro General: No confusion Cranial nerves: Yes Equal, round and reactive pupils present and Yes Normal hearing present Speech: No Abnormal speech present Gait exam (Neuro): Normal gait present Motor exam (neuro): 5/5 motor strength present throughout Sensory Exam: No Sensory deficit (Neuro) Extrem General: No pedal edema Psych Speech and movement: Normal speech and movement present Affect: normal affect Attitude: cooperative Thought process: Normal thought process present Thought content: Normal thought content present Insight: Good insight present (Psych) Judgement: Good judgement present (Psych) Assessment & Plan Assessment & Plan (1) Postlaminectomy syndrome: Code(s): M96.1 - Postlaminectomy syndrome, not elsewhere classified Category: Medical (2) Chronic pain disorder: Code(s): G89.4 - Chronic pain syndrome Category: Medical (3) Implantable intrathecal infusion pump present: Code(s): Z96.89 - Presence of other specified functional implants Category: Medical Plan: It looks like that patient reports awkwardness of the gait. It maybe a result of ataxia of the bilateral lower extremities. He wants me to stop Prialt. He also thinks that Prialt causes his urinary retention and he is constipation to be worse. Unlikely however nevertheless I will stop Prialt. I will miller in medication with morphine only 40 cc in preservative-free normal saline 10 milligrams/mL. Plan . Coding Level of Care Code Est Pt Level 3 (51994) Diagnoses Postlaminectomy syndrome M96.1 Chronic pain disorder G89.4 Implantable intrathecal infusion pump present Z96.89
--- OUTSIDE RECORDS SUMMARY | 2024-11-04 09:45 | XMS_ITS | Data Portability ---
Author Organization [place] - [facility] Address [address] [place] [phone] Care Team Providers Care Diesel Dragline Operator Name Role Phone GISELLE SIMS Primary Care Provider [phone] GISELLE SIMS Referring Provider Assessment Encounter Date Assessment Date Assessment LastModified by Organization Details LastModified Time 05/11/2017 05/11/2017 PATIENT WITH LBP AND SCIATICA, AND H/O L4-S1 FUSION, MULTIPLE OPERATIONS (ANT., AND POST.) WITH DECOMP. LAMINECTOMY. NO HNP/SPINAL STENOSIS/FRACTUR E IDENTIFIED ON MRI FROM 05/2016, LS SPINE. X-RAYS SATISF. AND NO HARDWARE FAILURE. IN CHRONIC INTRACTABLE PAIN. HAS FAILED SURGERY, PAIN MEDS., DCS IMPLANT, VARIOUS MEDS, AND IS IN SIGNIFICANT PAIN WITH MARKED IMPAIRMENT IN ADL AND QOL, AND WALKS WITH CRUTCHES, FAVOURING LLE. EXTENSIVE DISCUSSION, EXPLAINING HIS CURRENT CONDITION, PAIN RX, PAST SURGERY, HIS PCP'S NOTE (REVIEWED WITH HIM WITH WRITTEN NOTE), ALL OTHER REASONABLE TREATMENTS FOR HIS PAIN, MRI LS SPINE RESULTS/REPORT/M Y REVIEW, NARCOTIC EFFECTS INCL. SIDE EFFECTS, AND JACK. RESPIRATORY DEPRESSION WITH NEED FOR VENTILATOR SUPPORT/ IF THERE IS DRUG OVERDOSE, NEED FOR HIM TO ABSOLUTELY NOT USE ANY LEGAL/ILLEGAL MEDS THAT WOULD DEPRESS HIS RESPIRATION AND MEDICAL CONDITION, AND ONLY USE ADDITIONAL MEDS. WHEN AN INPATIENT UNDER MEDICAL SUPERVISION AND INFORM ALL HIS MEDICAL CARE TAKERS RE: THE DRUG INFUSION PUMP, AND THE DRUG /DOSE HE IS GETTING (A PRINTOUT OF THE DETAILS WILL BE GIVEN AND HE MUST CARRY THAT AT ALL TIMES WITH HIM). THE SURGICAL PROCEDURE OF PERCUTANEOUS CATHETER PLACEMENT IN HIS SPINAL CANAL IN THE SPINAL FLUID SPACE (INTRATHECAL), AN INPATIENT, AND UNDER SUPERVISION, FOR TRIAL OF THE EFFECTIVENESS OF THE NARCOTIC INJECTED, AND THE POTENTIAL ADVERSE EFFECTS INCLUDING RESPIRATORY DEPRESSION/ /NEED FOR VENTILATOR SUPPORT/NEED FOR REVERSAL OF DRUG EFFECTS WITH NARCAN AND RESULTANT INCREASE IN PAIN, AND THAT NO GUARANTEES MADE RE: OUTCOME/EXTENT OF PAIN RELIEF/OR QUALITY OF LIFE/WORK ALSO DISCUSSED. THE NEED FOR HIM TO DECREASE HIS PAIN MEDS TO >50% OF THE DOSE THAT HE WAS USING, BEFORE HIS ADMISSION FOR THE TRIAL CATHETER PLACEMENT ALSO DISCUSSED. HE ALREADY HAS DECREASED HIS BUTRANS BY 50%, AND USES HYDROCODONE PRN. IF THE TRIAL IS SUCCESSFUL IN RELIEVING HIS PAIN BY AT LEAST 50% HE ASSESSES IT, HE WILL THEN DECIDE RE: PERMANENT CATHETER/DRUG INFUSION PUMP PLACEMENT. THE TEMPORARY CATHETER WILL BE DISCONTINUED PRIOR TO THIS IMPLANT. DISC. WITH PATIENT IN DETAIL RE: DX. OF CHRONIC INTRACTABLE PAIN, CORRELATION TO HIS CLINICAL SYMPTOMS, AND HIS RESPONSE TO THE PRIOR MEDICATIONS AND TREATMENTS/OPERA TIONS, AND HIS IMPRESSION RE: HIS SIGNIFICANT PAIN IMPROVEMENT/RELI EF. THE OPTIONS DISCUSSED RE: CONTINUED ORAL/TRANS-DERMA L/NASAL NARCOTICS, OTHER MODALITIES INCLUDING AND NOT LIMITED TO, MEDITATION/RELAX ATION/PHYSICAL THERAPY/CHIROPRA CTIC THERAPY VERSUS THE INTRATHECAL CONTINUOUS INFUSION OF NARCOTICS BY THE PUMP AND CATHETER IMPLANTED. DISCUSSED RE: RX, AND RISKS, BENEFITS, RATIONALE, ALTERNATIVES, AND COMPLICATIONS OF SURGERY INCLUDING REPEAT SURGERY IF HAS BLEEDING (ACUTE/CHRONIC), PUMP/CATHETER MALFUNCTION/NATY K/KINKING/OBSTRU CTION, INFECTION WITH PUMP/CATHETER REMOVAL, AND ABDOMINAL/SPINAL SURGERY IF ANY ABDOMINAL/SPINAL COMPLICATIONS, AND THAT NO GUARANTEES MADE RE: OUTCOME/RELIEF OF SYMPTOMS, AND DURATION OR EXTENT OF RELIEF. THE NEED TO COME TO CLINIC FOR DRUG PUMP REFILL AT SCHEDULED TIMES, AND THAT THE PUMP WOULD NEED TO BE REPLACED WHEN BATTERY POWER EXPIRES, WITH REPEAT SURGERY EXPLAINED. THE EXTREME IMPORTANCE OF NOT USING ANY PRESCRIPTION/ILL ICIT DRUGS AND THE REASONS FOR THAT EXPLAINED, INCLUDING THE RISK OF AND AND POTENTIAL VENTILATOR SUPPORT EXPLAINED. ALL HIS QUESTIONS ANSWERED AND HE UNDERSTANDS AND AGREES. HE HAS DISCUSSED WITH PCP, AND THOUGHT OVER INCLUDING WITH HIS , AND WANTS TO PROCEED WITH CATHETER/PUMP FOR NARCOTIC INFUSION PLACEMENT. FACE/FACE TIME IS 86 MIN. RUDI schneider Not available 05/11/2017 16:20:14 Plan of Treatment Reminders Order Date Submit Date Provider Last Modified By Organization Details Last Modified Time Details Appointments None record ed. Lab None record ed. Referral None record ed. Procedures None record ed. Surgeries None record ed. Imaging None record ed. Medication Orders None record ed. Patient TargetsNo targets recorded. Patient Instructions Encounter Date Encounter Id Patient Instructions Last Modified By Organization Details Last Modified Time 05/11/2017 [id number] sciatica: care instructions Not available 05/12/2017 09:59:50 Reason for Referral None Reported. Results Created Date Observation Date Name Description Value Unit Range Abnormal Flag Note LastModifiedBy Organization Detail LastModifiedTime 04/11/20 17 02/10/2015 MRI, lumba r spine , w/o contr ast No observ ation record ed. knirmel Not Available 2016 16:17:01 04/11/20 17 08/25/2009 MRI, lumba r spine , w/o contr ast No observ ation record ed. knirmel Not Available 2016 16:17:01 04/17/20 17 02/02/2017 fluor oscop ic iesha nce for needl e place ment (PROC ) No observ ation record ed. knirmel Not Available 2016 16:17:01 04/21/20 17 02/10/2015 MRI, lumba r spine , w/o contr ast No observ ation record ed. knirmel Not Available 2016 16:17:01 04/21/20 17 08/25/2009 MRI, lumba r spine , w/o contr ast No observ ation record ed. knirmel Not Available 2016 16:17:01 05/10/20 17 05/10/2017 [facility]R, [facility]umba r spine [facility] [address] [facility] [facility] [place] [address] Date of Keith e: Date/T pedrito Sharp jeimy: 1301 Locati on: Moisés gamble [facility] Name: LANNY WALKER CH : Acct Number : [id number] Phone #: [phone] Sig juany ___ Cristine beatty MD: Simone Clarke Result s: Exam: XR SPINE LUMB W/MIN 6V BENDIN G Signs/ Sympto ms: LOW BACK PAIN HISTOR Y:66-y ear-ol d male with lower back pain. TECHNI QUE: AP, bilate ral obliqu e, neutra l latera l, flexed latera l, and extend ed latera l views of the lumbar spine were obtain ed. COMPAR IAIN(S ): None. FINDIN GS: There is eviden ce for a vascul ar stent graft involv ing the proxim al left iliac artery . Multip le small surgic al clips are seen around this on the left overly ing L5. Additi onally there is patent agent ior spinal fusion hardwa re with pedicl e screws at L4, and S1. The orthop edic hardwa re is intact . There is no eviden ce of spondy lolist hesis of the lumbar spine from flexio n to extens ion. Of note howeve r, it is diffic ult to visual ize the inferi or patent agent ior margin of L5 verteb josafat due to overly ing bony struct ures, but as aforem ention ed, even with this limita tion, there does not appear to be eviden ce for sublux ation from flexio n to extens ion. There is severe L4-L5 and L5-S1 disc space narrow ing. There is also severe L4-L5 and L5-S1 facet joint space narrow ing. There is preser vation in height of the L3-L4 disc space. Remain ing disc space height s are preser gilmar as well. Verteb ral body height s are preser gilmar also. There is no eviden ce of any osseou s lesion . IMPRES KAHLIL: NO EVIDEN CE OF SPONDY LOLIST HESIS, AND WITH FLEXIO N AND EXTENS ION, THERE IS NO EVIDEN CE TO SUGGES T ANY SUBLUX ATION. Transc ribed: RW [id number] Report [id number] Copies to: Simone Clarke Interp reting Physic leo: Ansley Gifford Approv ed Electr onical ly: Ansley Gifford 1514 Patien t accoun t number : [id number] Orderi ng physic leo: John Clarke Other provid ers: John Clarke , , , Physic leo Non Staff, John Clarke , Physic leo Non Staff, John Clarke [facility] (Scheduling Dept) [address] [place], [address], 05/11/2017 16:17:01 Result Notes None recorded. Procedures Surgical History Date Name Laterality Status Provider Name and Address Organization Details Recorded Time 5 General Surgery completed Keegan Clarke MD [address] [place] [address],[address] [place] [address], [phone], [place] - [facility] 04/11/2017 14:34:18 0 Brain Surgery completed Keegan Clarke MD [address] [place] [address], [phone], [place] [facility] 04/11/2017 14:26:47 0 Lumbar Spine Surgery completed Keegan Clarke MD [address] [place] [address], [phone], [place] [facility] 04/11/2017 14:29:18 0 Knee Surgery completed Keegan Clarke MD [address] [place] [address], [phone], [place] [facility] 04/11/2017 14:31:15 1 Orthopedic Surgery completed Keegan Clarke MD [address] [place] [address], [phone], [facility] - [facility] 04/11/2017 15:00:46 6 Knee Surgery completed Keegan Clarke MD [address] [place] [address], [phone], [place] - [facility] 04/11/2017 15:01:09 09/11/ 0 Lumbar Spine Surgery completed Keegan Clarke MD [address] [place] [address],[address] [place] [address], [place], [phone], [place] - [facility] 04/11/2017 14:27:53 Orthopedic Surgery completed Keegan Clarke MD [address] [place] [address],[address] [place] [address], [place], [phone], [place] - [facility] 05/11/2017 11:37:30 Imaging Results Imaging Date Name Status LastModified by Organization Details LastModified Time 02/10/2015 MRI, lumbar spine, w[facility]o contrast [facility] available 05/11/2017 16:17:01 08/25/2009 MRI, lumbar spine, w/o contrast completed Information not available 05/11/2017 16:17:01 02/02/2017 fluoroscopic guidance for needle placement (PROC) completed [facility] Information not available 05/11/2017 16:17:01 02/10/2015 MRI, lumbar spine, w/o contrast completed Information not available 05/11/2017 16:17:01 08/25/2009 MRI, lumbar spine, w/o contrast completed [facility] Information not available 05/11/2017 16:17:01 05/10/2017 XR, lumbar spine completed knirmel [facility] (Scheduling Dept) [address] [place] [address], [id number], 05/11/2017 16:17:01 Procedure Notes None recorded. Medical Equipment None Reported. Allergies No known drug allergies Medications Name Sig Start Date Stop Date Status Note LastModified by Organization Details LastModified Time lamotrigine 150 mg tablet 04/11 completed Not Available Not Available Not Available prednisone 10 mg tablet 04/11 completed Not Available Not Available Not Available lamotrigine 200 mg tablet active Not Available Not Available No t Available tiagabine 2 mg tablet 04/11 completed Not Available Not Available Not Available topiramate 25 mg tablet 04/11 completed Not Available Not Available Not Available hydrocodone 10 mg-acetaminophe n 325 mg tablet active Not Available Not Availa ble Not Available lamotrigine 25 mg tablet active Not Available Not Available No t Available levetiracetam 250 mg tablet 04/11 completed Not Available Not Available Not Available econazole nitrate 1 % topical cream 04/11 completed Not Available Not Available Not Available omeprazole 20 mg capsule,delayed release active Not Available Not Available Not Available montelukast 10 mg tablet active Not Available Not Available No t Available gabapentin 100 mg capsule 04/11 completed Not Available Not Available Not Available zolpidem 10 mg tablet active Not Available Not Available Not Available lamotrigine 100 mg tablet 04/11 completed Not Available Not Available Not Available diazepam 5 mg tablet active Not Available Not Available Not Available Cialis 20 mg tablet active Not Available Not Available Not Available levetiracetam 1,000 mg tablet 04/11 completed Not Available Not Available Not Available Butrans 20 mcg/hour transdermal patch 04/11 completed Not Available Not Available Not Available Butrans 10 mcg/hour transdermal patch active Not Available Not Available Not Available Butrans 15 mcg/hour transdermal patch 05/11 completed Not Available Not Available Not Available Vitals Date Recorded Body height Body mass index (BMI) Body weight Systolic blood pressure Diastolic blood pressure Provider Name and Address Organization Details Last Updated DateTime 04/11/2017 193.04 cm 26.8 kg/m2 67839.32 g 125 mm[Hg] 82 mm[Hg] Angela Wright [place] - [facility] 14:03:44 Social History Question Answer Notes LastModified by Organizat ion Details LastModified Time Tobacco Smoking Status Never Smoker Angela shea [place] - [facility] 04/11/2017 14:03:57 Accident Related Injury No Information not available 04/11/2017 Do You Have An Advance Directive? No Information not available 04/11/2017 What Is Your Level Of Alcohol Consumption? Occasional Information not available 04/11/2017 Auto Related Injury? No Information not available 04/11/2017 Are You Currently Employed? No Information not available 04/11/2017 Currently No Information not available 04/11/2017 Diabetes No Information no t available 04/11/2017 What Type Of Diet Are You Following? REGULAR Information not available 04/11/2017 Family History Of Heart Disease? No Information not available 04/11/2017 Have There Been Any Changes To Your Family Or Social Situation? No Information no t available 04/11/2017 High Blood Pressure No Information not available 04/11/2017 High Cholesterol Yes Informat ion not available 04/11/2017 Live Alone Or With Others? With Others Information not available 04/11/2017 Marital Status Informatio n not available 04/11/2017 What Was The Date Of Your Most Recent Tobacco Screening? 04/11/2017 Information not available 04/04/2019 How Much Tobacco Do You Smoke? No Information not available 04/11/2017 Do You Use Any Illicit Or Recreational Drugs? No Information not available 04/11/2017 Sex: Unknown Functional Status Question Answer Note LastModified by Organization D etails LastModified Time Do you have difficulty walking or climbing stairs? Yes Information not available 04/11/2017 Do you have difficulty doing errands alone? Yes Information not available 04/11/2017 Do you have difficulty dressing or bathing? No Information not available 04/11/2017 What is your exercise level? None Information not available 04/11/2017 Mental Status Question Answer Note LastModified by Organization D etails LastModified Time Do you have difficulty concentrating, remembering or making decisions? No Information no t available 04/11/2017 Family History Relationship Description Onset Age of this Age Resolved Age Notes LastModified by Organization Details LastModified Time Father No current problems or disability knirmel Not available 04/11 14:58:59 Mother No current problems or disability knirmel Not available 04/11 14:59:00 Medical History Condition Response Coronary Artery Disease N Hyperthyroidism N MRSA N Head Trauma/Injury N Hypothyroidism N Depression N COPD N Lung Disease N Pneumonia N Orthopedic Problems Y Spine Problems Y Headaches/Migraines N Obstructive Sleep Apnea N Anxiety Disorder N Autoimmune disease N Vision or Eye Problems N Arthritis N Developmental Problems N Congenital Anomalies N Cancer N Stroke N Neck Injury N [place] N Liver Disease N Other Sleep Disorders N Fibromyalgia N Headaches N Kidney Disease N Heart Problems N Heart Disease/Heart Problems N Parkinson's Disease N Hospitalizations N Migraines N Thyroid Problems N Brain Tumors Y Encephalitis N PTSD N Multiple Sclerosis N Meningitis N Heart Attack ([place]) N Ulcers N Neurological Problems N Diabetes N Bleeding Disorder N Seizures/Epilepsy N Tuberculosis N Cerebral Palsy N Hyperlipidemia N Back Problems N Dementia N Asthma N Lupus N Epilepsy/Seizures N Mental Problems N Vertigo N Sleep Disorder N Aneurysm N Hepatitis N Spine surgery Y Hypertension N Osteoporosis N Past Encounters Encounter ID Performer Location Encounter Start Date Encounter Closed Date Diagnosis/Indication Diagnosis SNOMED-CT Code Diagnosis ICD10 Code Diagnosis Note [id number] Keegan Clarke MD Main Office [address] [place] [phone] 05/11/2017 10:58:24 05/12/2017 10:18:38 Lumbar post-laminectomy syndrome 086819944 M96.1 INTRACTABL E PAIN -06/20 Sciatica 35729190 M54.32 INTRACTABL E PAIN, LEFT WITH LLE WEAKNESS. Chronic in tractable pain 483544782 G89.29 LOW BACK Health Concerns Section Related Observation LastModified by Organization Detai ls LastModified Time None Recorded Concern Status LastModified by Organization Details LastModified Time None Recorded Advance Directives Directive N: Payers Encounter Date Sequence Insurance Name Policy Number Policy Amato Covered Member ID Amato Member ID Guarantor Name 05/11/2017 1 [place]IC[place]: [employer] Chris Lin [id number] Chris Lin 05/11/2017 2 [facility] - [facility] [id number] Chris Lin [id number] Chris Lin Notes Date Note Type Note Provider Name and Address Organization Details Recorded Time 05/11/2017 text/html 66 Y.O. WITH CHRONIC INTRACTABLE PAIN WITH MULTIPLE LS SPINE OPERATIONS, AND FAILED BACK SYNDROME, AND FAILED WITH ADEQUATE CONTROL OF HIS CHRONIC INTRACTABLE LBP/LLE PAIN. PCP NOTE DETAILS THAT AND THAT TRIAL OF IT NARCOTIC RX INDICATED, AT THIS STAGE. Keegan Clarke MD [address] [place] [address],[address] FLOOR, [place], [phone], [facility] - [facility] [place] 05/11/2017 16:23:53
--- OUTSIDE RECORDS SUMMARY | 2024-11-04 09:46 | XMS_ITS | Clinical Summary ---
Author Organization [facility] Address [address] [place] [address] Care Team Providers Care Head Of Business Development Name Role Phone Unavailable Primary Care Provider Unavailabl e Social History Tobacco Use Types Packs/Day Years Used Date Smoking Tobacco: Never Assessed Sex and Gender Information Value Date Recorded Sex Assigned at Not on file Legal Sex Male 8:54 PM EST Gender Identity Not on file Sexual Orientation Not on file Obstetrics History Plan of Treatment Health Maintenance Due Date Last Done Comments DTaP,Tdap,and Td Vaccines (1 - Tdap) 1969 Pneumococcal Vaccine: 50+ Ye ars (1 of 1 - PCV) 2000 Zoster Vaccines (1 of 2) 2000 Abdominal Aortic Aneurysm (A AA) Screen 10/06/2023 Cholesterol Screening (Lipid Panel) 10/06/2023 Colorectal Cancer Screening: Colonoscopy 10/06/2023 Depression Screening 10/06/2023 Falls Risk Assessment 10/06/2023 Hepatitis C Screening 10/06/2023 Social Influencers of Health Screening 10/06/2023 COVID-19 Vaccine ( - 2023-2 5 season) 2024 Influenza Vaccine (#1) 2024 RSV Immunization Patients 60 + Years Old (1 - 1-dose 75+ series) 2025 HIB Vaccines Aged Out No longer eligi ble based on patient's age to complete this topic HPV Vaccines Aged Out No longer eligi ble based on patient's age to complete this topic Hepatitis A Vaccines Aged Out No long er eligible based on patient's age to complete this topic Hepatitis B Vaccines Aged Out No long er eligible based on patient's age to complete this topic IPV Vaccines Aged Out No longer eligi ble based on patient's age to complete this topic MMR Vaccines Aged Out No longer eligi ble based on patient's age to complete this topic Meningococcal ACWY Vaccine Aged Out N o longer eligible based on patient's age to complete this topic Meningococcal B Vacine Aged Out No lo nger eligible based on patient's age to complete this topic RSV Immunization Patients Un bryant 20 months Aged Out No longer eligible b ased on patient's age to complete this topic Varicella Vaccines Aged Out No longer eligible based on patient's age to complete this topic
--- OUTSIDE RECORDS SUMMARY | 2024-11-04 09:46 | XMS_ITS | Clinical Summary ---
Author Organization [facility] Address [address] [place] [address] Care Team Providers Care Programmer Analyst Name Role Phone Unavailable Primary Care Provider Unavailabl e Social History Tobacco Use Types Packs/Day Years Used Date Smoking Tobacco: Never Assessed Sex and Gender Information Value Date Recorded Sex Assigned at Not on file Gender Identity Not on file Sexual Orientation Not on file Plan of Treatment Health Maintenance Due Date Last Done Comments Hepatitis C Virus Screening 1950 DTaP/Tdap/Td Vaccines (1 - Tdap) 1969 Pneumococcal Vaccines 50+ (1 of 1 - PCV) 2000 Zoster (Shingles) Vaccine (1 of 2) 2000 COVID-19 Vaccine (2023-2 5 season) 2024 RSV Vaccine 60 years and old er and Patients (1 - 1-dose 75+ series) 2025 Hepatitis B Vaccines Aged Out No long er eligible based on patient's age to complete this topic
--- OUTSIDE RECORDS SUMMARY | 2024-11-04 09:46 | XMS_ITS | Clinical Summary ---
Author Organization [facility] Address [address] [place] [address] Care Team Providers Care Corporate Operations Compliance Manager Name Role Phone Unavailable Primary Care Provider Unavailabl e Allergies No known active allergies Medications No known medications Active Problems No known active problems Social History Tobacco Use Types Packs/Day Years Used Date Smoking Tobacco: Never Assessed Sex and Gender Information Value Date Recorded Sex Assigned at Male 08/30/2023 2:40 PM EST Gender Identity Not on file Sexual Orientation Not on file Job Start Date Occupation Industry Not on file Not on file Not on file Last Filed Vital Signs Vital Sign Reading Time Taken Comments Blood Pressure 167/91 08/30/2023 1:39 PM EST Pulse 72 08/30/2023 1:39 PM EST Temperature 36.2 ??C (97.2 ??F) 08/30/2023 1:39 PM ES T Respiratory Rate 16 08/30/2023 1:39 PM EST Oxygen Saturation 100% 08/30/2023 1:39 PM EST Inhaled Oxygen Concentration - - Weight 106.6 kg (235 lb) 08/30/2023 11:36 AM EST Height 193 cm (6' 4 ) 08/30/2023 11:36 AM EST Body Mass Index 28.61 08/30/2023 11:36 AM EST Plan of Treatment Health Maintenance Due Date Last Done Comments Hepatitis C Screening 1950 COVID-19 Vaccine (#1) 03/21/1951 Depression Screening 1962 Preventative Health Evaluation 1968 DTap / Tdap / Td (1 - Tdap) 1969 Colon Cancer Screening (Colonoscopy) 1995 Shingrix-Zoster Vaccine (1 of 2) 2000 Fall Risk Assessment 2015 Pneumococcal Vaccine (1 of 1 - PCV) 2015 Influenza Vaccine (#1) 2024 RSV Adult > 60+ Yrs or Pregn ant (1 - 1-dose 75+ series) 2025 Hepatitis B Vaccines Aged Out No long er eligible based on patient's age to complete this topic RSV Ped < 20 months Aged Out No longe r eligible based on patient's age to complete this topic
== END 2024-11-04 09:30 | disposition home or self-care (01) ==
PROVIDERS: PCP Internal Medicine; Visit Provider Anesthesiology
DX: M96.1 Postlaminectomy syndrome, not elsewhere classified (principal); G89.4 Chronic pain syndrome; Z96.89 Presence of other specified functional implants
CPT/HCPCS: 99213

== ENCOUNTER → 2024-11-04 09:08 | Outpatient (BNVA) | payer MEDICARE, OTHER, SELFPAY | PROVIDERS: PCP Internal Medicine; Visit Provider Anesthesiology | DX: M96.1 Postlaminectomy syndrome, not elsewhere classified (principal); G89.4 Chronic pain syndrome; R27.0 Ataxia, unspecified; Z96.82 Presence of neurostimulator | CPT/HCPCS: 99212 ==

== ENCOUNTER 2024-11-07 08:37 | Outpatient (AMB) | payer MEDICARE, OTHER, SELFPAY ==
[2024-11-07 08:45] VITALS: BP 152/96; PULSE 92; O2SAT 99
--- NOTE | 2024-11-07 08:45 | MHC.OFFVIS ---
Vital Signs 11/07/24 08:45 BP 152/96 H Blood Pressure Location Rt brachial Position Sitting Pulse 92 Pulse Source Pulse Oximeter Pulse Oximetry (%) 99 Oxygen Delivery Method Room Air Intake Visit Reasons: ITDD Refill Allergies No Known Allergies Allergy (Verified 11/07/24 08:45) HPI Comments Details: Chris is my office today to change the medication in his pain pump. He reported weakness and awkwardness of the bilateral lower extremities while on Prialt. It is very unfortunate but I think it might be a toxic response. We decided to change the Prialt. We rushed in his regular morphine sulfate medication 10 milligrams/mL. The pump refill is as below. I will schedule appointment with him in 1 month and I will discuss adding baclofen to the pain pump. Five days bridge bolus was scheduled for the patient today during which he still will be continuing to get Prialt in his admixture which is stored at this time in the intrathecal catheter. I left the dose of the medication it was 1.1 mg per day. Prior: Intrathecal pump replacement was done on 09/20/2024. A new system with a new catheter was given to the patient during this procedure. very pleasant 73 years old gentleman who presents in my office with complains on pain in lower back and sensation of burning in bilateral lower extremities. She reports that pain in bilateral lower extremity started in 2018 after a chiropractor perform some sort of manipulation on his back. Even before that he was suffering from postlaminectomy syndrome which was treated in [place] with intrathecal pain pump. His pump is 6 years old and due to be replaced in fall of 2023. He reports that he can not sleep normally can not do activities of daily living can not take care of himself can not function normally he is retired individual. He reports that he needs walker occasionally for ambulation. He reports that most comfortable position for him is in the left hand side in the bed and he also reports that when he is sitting or standing his pain in bilateral lower extremities and unbearable.He currently onadmixture of Morphine 10 mg/ ml and 30 mg of bupivacaine, as well as clonidine 650 mcg per ml. He receives continuous infusion of morphine 1.835 mg per day and corresponding doses of the clonidine and bupivacaine. He does not have PTM device. He reports that PTM device make him ?addicted to morphine ?. Apparently he had multiple images of his lumbar spine done in [facility] last MRI was done in 2014. He reports that he is taking herbal or homeopathic treatments for his pain. He received multiple nerve blocks epidurals and apparently he had 2 trials of spinal cord stimulator with [facility] pain management. He reports past medical history of peripheral arterial disease with status post stent in the left femoral artery, he has prostate problem arthritis. His past surgical history significant for left total knee replacement in 2008. He had surgery for back fusion in 2009 and he reported cranial surgery in 2008. He is currently taking Ambien diazepam bethanechol and lamotrigine. He denies smoking cigarettes admits occasional rare take of alcohol drinks decaffeinated coffee and denies recreational drugs. [facility] Medical History (Updated 09/18/24 @ 13:33 by Ana Berrios RN) Implantable intrathecal infusion pump present Postoperative urinary retention Opioid dependence, uncomplicated Complex regional pain syndrome i of lower limb, bilateral Insomnia, unspecified Chronic pain disorder Postlaminectomy syndrome, not elsewhere classified Surgical History (Updated 09/20/24 @ 07:57 by Rosario Berry RN) History of surgery H/O knee surgery History of back surgery Social History Are you a primary skin care technician to a significant other at home: No Do you presently have visiting nurse or other home services: No Comment: Balance issues at home Patient Tobacco Use Status: Never used Tobacco Review of Systems Const All systems reviewed & are unremarkable except as noted in HPI and below ENT Reports Normal hearing present Neuro Reports Normal hearing present, Denies Abnormal speech present, Denies confusion and Denies Sensory deficit (Neuro) Psych Denies confusion Physical Exam Vital Signs: Last Vital Signs Pulse 92 11/07/24 08:45 BP 152/96 H 11/07/24 08:45 Pulse Ox 99 11/07/24 08:45 Oxygen Delivery Method Room Air 11/07/24 08:45 Const General: No confusion Orientation/consciousness: No confusion Eyes General: appearance normal, both eyes and all related structures Pupils: Equal, round and reactive pupils present EOM: EOMs intact bilaterally Neck Neck: Yes full ROM Chest Chest palpation & inspection: normal inspection of the chest Resp Effort & Inspection: normal respiratory effort, able to speak in complete sentences, normal respiratory pattern, no audible wheezes and no cough Cardio Jugular venous distension: no JVD GI Inspection: Yes normal to inspection Back/Spine/Pelvis Other: He has very well-healed scar in inspection in the projection of the L4-5 and S1 vertebra spinous processes. He also has scar in the left lower abdomen in Pfannenstiel fashion evidence of 2nd fusion. He is in no obvious mild distress today he prefers to positioned himself flat on the examination table during the conversation. No tenderness on palpation in paraspinal spinal region lumbar spine. Mild tenderness on palpation in projection of the sacral bone. SLR is negative bilaterally. Asaf's test is negative bilaterally. Valsalva maneuver does not aggravate his pain. He denies incontinence with urine or stool. He denies urinary retention Neuro General: No confusion Cranial nerves: Yes Equal, round and reactive pupils present and Yes Normal hearing present Speech: No Abnormal speech present Gait exam (Neuro): Normal gait present Motor exam (neuro): 5/5 motor strength present throughout Sensory Exam: No Sensory deficit (Neuro) Extrem General: No pedal edema Psych Speech and movement: Normal speech and movement present Affect: normal affect Attitude: cooperative Thought process: Normal thought process present Thought content: Normal thought content present Insight: Good insight present (Psych) Judgement: Good judgement present (Psych) Assessment & Plan Assessment & Plan (1) Postlaminectomy syndrome: Code(s): M96.1 - Postlaminectomy syndrome, not elsewhere classified Category: Medical (2) Chronic pain disorder: Code(s): G89.4 - Chronic pain syndrome Category: Medical Plan: Intrathecal pump refill. THE PATIENT CAME TODAY IN the office FOR THE CHANGE OF THE MEDICATION IN her PAIN PUMP. The name and date of were verified and informed consent was obtained for the procedure. ?The pump was interrogated and the residual amount of fluid was found to be 36.4 mL. HE WAS POSITIONED supine on the bed AND THE AREA OF THE INTRATHECAL PUMP in his left mid abdomen WAS PREPPED WITH CHLORAPREP. The fenestrated drape was sterilely applied over the area of the pump. Sterile gloves were worn and of the aspiration system was assembled containing 2 in 22 gauge noncoring needle, the needle was connected to extension tubing which was connected to the 20 cc sterile syringe. The pain pump was palpated under the skin in the patient's right buttock area. The needle was inserted through the skin and the central plug of the pain pump and fluid was aspirated. The clear fluid was going into the syringe the total amount of the fluid was 36 mL .. After that a new batch? of medication was obtained which was containing morphine 10 milligrams/mL and Prialt 10 micro g per mL. The admixture was made in the two 20 cc syringes prepared by [facility] compounding pharmacy. The syringes were sequentially connected to the bacterial filter, and then connected to the extension tubing. After that the medication in the syringe was slowly instilled into the pump with aspirations at 35, 15 and 5 cc sevilla.? The pump was reprogrammed for the continuous doses of morphine 1.101 mg per day The bridge bolus was given for 110 hours. (3) Implantable intrathecal infusion pump present: Code(s): Z96.89 - Presence of other specified functional implants Category: Medical Plan: It looks like that patient reports awkwardness of the gait. It maybe a result of ataxia of the bilateral lower extremities. He also reports weakness of bilateral lower extremities. The pump was interrogated and refilled as below. Now he will have only morphine in his admixture. The dose was left 1.1 mg of morphine a day. No PTM. I will see him in 1 month and we will discuss addition of baclofen to his pain pump. Plan . Coding Level of Care Code Est Pt Level 3 (20977) Procedure Only Diagnoses Postlaminectomy syndrome M96.1 Chronic pain disorder G89.4 Implantable intrathecal infusion pump present Z96.89
--- OUTSIDE RECORDS SUMMARY | 2024-11-07 09:07 | XMS_ITS | Data Portability ---
Author Organization [place] - [facility] Address [address] [place] [id number] Care Team Providers Care Tool Or Die Drawing Checker Name Role Phone GISELLE SIMS Primary Care Provider GISELLE SIMS Referring Provider Assessment Encounter Date [...] By Organization Details Last Modified Time 05/11/2017 [id number] sciatica: care instructions Not available 05/12/2017 09:59:50 [...] [facility] l [facility] [address] [facility] [place] [address] Date of Keith e: Date/T pedrito Sharp jeimy: 1301 Locati on: Mois[facility] Name: LANNY WALKER CH : Acct Number : [id number] Phone #: [phone] Sig juany ___ Crsitine beatty MD: Simone Clarke Result s: Exam: [...] overly ing L5. Additi onally there is cashier office ior spinal fusion hardwa re with pedicl e screws at L4, and S1. The orthop edic hardwa re is intact . There is no eviden ce of spondy lolist hesis of the lumbar spine from flexio n to extens ion. Of note howeve r, it is diffic ult to visual ize the inferi or cashier office ior margin of L5 verteb josafat due [...] 1514 Patien t accoun t number : [id number] Orderi ng physic leo: John Clarke Other provid ers: John Clarke , , , Physic leo Non Staff, John Clarke , Physic leo Non Staff, John Clarke [facility] (Scheduling Dept) [address] [place], [address], 05/11/2017 16:17:01 Result Notes None recorded. Procedures Surgical History Date Name Laterality Status Provider Name and Address Organization Details Recorded Time 5 General Surgery completed Keegan Clarke MD [address] [place] [address],[address] [place] [address], [phone], [place] - [facility] 04/11/2017 14:34:18 0 Brain Surgery completed Keegan Clarke MD [address] [place] [address], [phone], [place] [facility] 04/11/2017 14:26:47 0 Lumbar Spine Surgery completed Keegan Clarke MD [address] [place] [address], [phone], [place] [facility] 04/11/2017 14:29:18 0 Knee Surgery completed Keegan Clarke MD [address] [place] [address], [phone], [place] [facility] 04/11/2017 14:31:15 1 Orthopedic Surgery completed Keegan Clarke MD [address] [place] [address], [phone], [facility] - [facility] 04/11/2017 15:00:46 6 Knee Surgery completed Keegan Clarke MD [address] [place] [address], [phone], [place] - [facility] 04/11/2017 15:01:09 09/11/ 0 Lumbar Spine Surgery completed Keegan Clarke MD [address] [place] [address],[address] [place] [address], [place], [phone], [place] [facility] 04/11/2017 14:27:53 Orthopedic Surgery completed Keegan Clarke MD [address] [place] [address],[address] [place] [address], [place], [phone], [place] [facility] 05/11/2017 11:37:30 Imaging Results Imaging Date Name Status LastModified by Organization Details LastModified Time 02/10/2015 MRI, lumbar spine, w/o contrast [facility] not available 05/11/2017 16:17:01 08/25/2009 MRI, lumbar spine, w/o contrast completed Information not available 05/11/2017 16:17:01 02/02/2017 fluoroscopic guidance for needle placement (PROC) completed [facility] Information not available 05/11/2017 16:17:01 02/10/2015 MRI, lumbar spine, w/o contrast completed Information not available 05/11/2017 16:17:01 08/25/2009 MRI, lumbar spine, w/o contrast completed [facility] Information not available 05/11/2017 16:17:01 05/10/2017 XR, lumbar spine completed [facility] (Scheduling Dept) [address] [place] [address], [id number], 05/11/2017 16:17:01 Procedure Notes None recorded. Medical [...] Updated DateTime 04/11/2017 193.04 cm 26.8 kg/m2 46219.32 g 125 mm[Hg] 82 mm[Hg] Angela Wright [place] - [facility] 14:03:44 Social History Question Answer Notes LastModified by Organizat ion Details LastModified Time Tobacco Smoking Status Never Smoker Angela shea [place] - [facility] 04/11/2017 14:03:57 Accident Related Injury [...] Multiple Sclerosis N Meningitis N Heart Attack ([place]) N Ulcers N Neurological Problems N Diabetes [...] SNOMED-CT Code Diagnosis ICD10 Code Diagnosis Note [id number] Keegan Clarke MD Main Office [address] [place] [phone] 05/11/2017 10:58:24 05/12/2017 10:18:38 Lumbar post-laminectomy syndrome 343049908 M96.1 INTRACTABL E PAIN -06/20 Sciatica 98394056 M54.32 INTRACTABL E PAIN, LEFT WITH LLE WEAKNESS. Chronic in tractable pain [id number] G89.29 LOW BACK Health Concerns Section Related Observation LastModified by Organization Detai ls LastModified Time None Recorded Concern Status LastModified by Organization Details LastModified Time None Recorded Advance Directives Directive N: Payers Encounter Date Sequence Insurance Name Policy Number Policy Amato Covered Member ID Amato Member ID Guarantor Name 05/11/2017 1 [place] [employer] Chris Lin [id number] Chris Lin 05/11/2017 2 [facility] INDEMNITY PLAN - [facility] [id number] Chris Lin [id number] Chris Lin Notes Date Note Type Note Provider Name and Address Organization Details Recorded Time 05/11/2017 text/html 66 Y.O. WITH CHRONIC INTRACTABLE PAIN WITH MULTIPLE LS SPINE OPERATIONS, AND FAILED BACK SYNDROME, AND FAILED WITH ADEQUATE CONTROL OF HIS CHRONIC INTRACTABLE LBP/LLE PAIN. PCP NOTE DETAILS THAT AND THAT TRIAL OF IT NARCOTIC RX INDICATED, AT THIS STAGE. Keegan Clarke MD [address] [place] [address],[address] FLOOR, [place], [phone], [facility] - [facility] [place] 05/11/2017 16:23:53
--- OUTSIDE RECORDS SUMMARY | 2024-11-07 09:07 | XMS_ITS | Clinical Summary ---
Author Organization [facility] Address [address] [place] [address] Care Team Providers Care Nitro Worker Name Role Phone Unavailable Primary Care Provider [...]
--- OUTSIDE RECORDS SUMMARY | 2024-11-07 09:07 | XMS_ITS | Clinical Summary ---
Author Organization [facility] Address [address] [place] [address] Care Team Providers Care Home Decorator Name Role Phone Unavailable Primary Care Provider [...]
--- OUTSIDE RECORDS SUMMARY | 2024-11-07 09:07 | XMS_ITS | Clinical Summary ---
Author Organization [facility] Address [address] [place] [address] Care Team Providers Care Construction Craft Laborer Name Role Phone Unavailable Primary Care Provider [...]
== END 2024-11-07 09:35 | disposition home or self-care (01) ==
PROVIDERS: PCP Internal Medicine; Visit Provider Anesthesiology
DX: G89.4 Chronic pain syndrome (principal); M96.1 Postlaminectomy syndrome, not elsewhere classified; Z45.1 Encounter for adjustment and management of infusion pump
CPT/HCPCS: 62370; 99213

== ENCOUNTER → 2024-11-07 08:37 | Outpatient (BNVA) | payer MEDICARE, OTHER, SELFPAY | PROVIDERS: PCP Internal Medicine; Visit Provider Anesthesiology | DX: M96.1 Postlaminectomy syndrome, not elsewhere classified (principal); G89.4 Chronic pain syndrome; Z96.89 Presence of other specified functional implants | CPT/HCPCS: 62370; 99212 ==

== ENCOUNTER 2024-11-11 08:29 | Outpatient (AMB) | payer MEDICARE, OTHER, SELFPAY ==
[2024-11-11 08:32] VITALS: BP 145/70; PULSE 73; O2SAT 99; BMI 28.6
--- NOTE | 2024-11-11 08:32 | MHC.OFFVIS ---
Vital Signs 11/11/24 08:32 Height 6 ft 4 in Weight 235 lb BMI 28.6 BP 145/70 H Blood Pressure Location Rt brachial Position Supine Pulse 73 Pulse Source Doppler Pulse Oximetry (%) 99 Oxygen Delivery Method Room Air Intake Visit Reasons: Follow Up Per Dr. Godoy Allergies No Known Allergies Allergy (Verified 11/07/24 08:45) HPI Comments Details: Chris is my office today with a complain of severe pain in the right lower extremity his usual pain getting exacerbated. He last time reported that Prialt addition to his pain pump resulted in awkwardness in his lower extremities and difficulty with the gait. Ataxia suspected and patient's Prialt was revoked. He is still on the bridge bolus and still receiving Prialt which is continued to be present in the intrathecal catheter. It is unclear to me why his pain became more severe. At this time I only can offer him increase of the doses of the opioids. He will start to receive new increased dose of morphine only in 15 hours. I offered him to consider baclofen as the yet another attempt to alleviate his pain in make it better. Prior: Intrathecal pump replacement was done on 09/20/2024. A new system with a new catheter was given to the patient during this procedure. very pleasant 73 years old gentleman who presents in my office with complains on pain in lower back and sensation of burning in bilateral lower extremities. She reports that pain in bilateral lower extremity started in 2018 after a chiropractor perform some sort of manipulation on his back. Even before that he was suffering from postlaminectomy syndrome which was treated in [place] with intrathecal pain pump. His pump is 6 years old and due to be replaced in fall of 2023. He reports that he can not sleep normally can not do activities of daily living can not take care of himself can not function normally he is retired individual. He reports that he needs walker occasionally for ambulation. He reports that most comfortable position for him is in the left hand side in the bed and he also reports that when he is sitting or standing his pain in bilateral lower extremities and unbearable.He currently onadmixture of Morphine 10 mg/ ml and 30 mg of bupivacaine, as well as clonidine 650 mcg per ml. He receives continuous infusion of morphine 1.835 mg per day and corresponding doses of the clonidine and bupivacaine. He does not have PTM device. He reports that PTM device make him ?addicted to morphine ?. Apparently he had multiple images of his lumbar spine done in [facility] last MRI was done in 2014. He reports that he is taking herbal or homeopathic treatments for his pain. He received multiple nerve blocks epidurals and apparently he had 2 trials of spinal cord stimulator with [facility] pain management. He reports past medical history of peripheral arterial disease with status post stent in the left femoral artery, he has prostate problem arthritis. His past surgical history significant for left total knee replacement in 2008. He had surgery for back fusion in 2009 and he reported cranial surgery in 2008. He is currently taking Ambien diazepam bethanechol and lamotrigine. He denies smoking cigarettes admits occasional rare take of alcohol drinks decaffeinated coffee and denies recreational drugs. [facility] Medical History (Updated 09/18/24 @ 13:33 by Ana Berrios RN) Implantable intrathecal infusion pump present Postoperative urinary retention Opioid dependence, uncomplicated Complex regional pain syndrome i of lower limb, bilateral Insomnia, unspecified Chronic pain disorder Postlaminectomy syndrome, not elsewhere classified Surgical History (Updated 09/20/24 @ 07:57 by Rosario Berry RN) History of surgery H/O knee surgery History of back surgery Social History Are you a primary behavioral health care coordinator to a significant other at home: No Do you presently have visiting nurse or other home services: No Comment: Balance issues at home Patient Tobacco Use Status: Never used Tobacco Review of Systems Const All systems reviewed & are unremarkable except as noted in HPI and below ENT Reports Normal hearing present Neuro Reports Normal hearing present, Denies Abnormal speech present, Denies confusion and Denies Sensory deficit (Neuro) Psych Denies confusion Physical Exam Vital Signs: Last Vital Signs Pulse 73 11/11/24 08:32 BP 145/70 H 11/11/24 08:32 Pulse Ox 99 11/11/24 08:32 Oxygen Delivery Method Room Air 11/11/24 08:32 BMI result Body Mass Index 28.6 Const General: No confusion Orientation/consciousness: No confusion Eyes General: appearance normal, both eyes and all related structures Pupils: Equal, round and reactive pupils present EOM: EOMs intact bilaterally Neck Neck: Yes full ROM Chest Chest palpation & inspection: normal inspection of the chest Resp Effort & Inspection: normal respiratory effort, able to speak in complete sentences, normal respiratory pattern, no audible wheezes and no cough Cardio Jugular venous distension: no JVD GI Inspection: Yes normal to inspection Back/Spine/Pelvis Other: He has very well-healed scar in inspection in the projection of the L4-5 and S1 vertebra spinous processes. He also has scar in the left lower abdomen in Pfannenstiel fashion evidence of 2nd fusion. He is in no obvious mild distress today he prefers to positioned himself flat on the examination table during the conversation. No tenderness on palpation in paraspinal spinal region lumbar spine. Mild tenderness on palpation in projection of the sacral bone. SLR is negative bilaterally. Asaf's test is negative bilaterally. Valsalva maneuver does not aggravate his pain. He denies incontinence with urine or stool. He denies urinary retention Neuro General: No confusion Cranial nerves: Yes Equal, round and reactive pupils present and Yes Normal hearing present Speech: No Abnormal speech present Gait exam (Neuro): Normal gait present Motor exam (neuro): 5/5 motor strength present throughout Sensory Exam: No Sensory deficit (Neuro) Extrem General: No pedal edema Psych Speech and movement: Normal speech and movement present Affect: normal affect Attitude: cooperative Thought process: Normal thought process present Thought content: Normal thought content present Insight: Good insight present (Psych) Judgement: Good judgement present (Psych) Assessment & Plan Assessment & Plan (1) Postlaminectomy syndrome: Code(s): M96.1 - Postlaminectomy syndrome, not elsewhere classified Category: Medical (2) Chronic pain disorder: Code(s): G89.4 - Chronic pain syndrome Category: Medical Plan: Intrathecal pump adjustment. Morphine concentration is 10 milligrams/mL. Patient is on continuous dose of the morphine without PTM. Patient insists on and refused to start PTM. His 24 hours dose was 1.101 mg per day. I increase the dose to 1.699 mg per day. I am aware that it is 54% of increase of his dose. However before initiation of the Prialt he was on higher doses of morphine so therefore just a return of morphine to the previous those. (3) Implantable intrathecal infusion pump present: Code(s): Z96.89 - Presence of other specified functional implants Category: Medical Plan: We will see how this elevated dose of morphine will affect the patient's pain. His options are continued to escalate morphine which possibly could lead to more tolerance and even higher doses of the morphine and or try to introduce another medication into admixture of the pain pump. Plan . Coding Level of Care Code Est Pt Level 3 (76343) Procedure Only Diagnoses Postlaminectomy syndrome M96.1 Chronic pain disorder G89.4 Implantable intrathecal infusion pump present Z96.89
--- OUTSIDE RECORDS SUMMARY | 2024-11-11 08:51 | XMS_ITS | Clinical Summary ---
Author Organization [facility] Address [address] [place] [address] Care Team Providers Care Platform Architect Name Role Phone Unavailable Primary Care Provider [...]
--- OUTSIDE RECORDS SUMMARY | 2024-11-11 08:51 | XMS_ITS | Data Portability ---
Author Organization [place] - [facility] Address [address] [place] [id number] Care Team Providers Care Safety Belt Installer Name Role Phone GISELLE SIMS Primary Care Provider [phone] GISELLE SIMS Referring Provider [phone] Assessment Encounter Date Assessment Date Assessment LastModified [...] By Organization Details Last Modified Time 05/11/2017 [id number] sciatica: care instructions Not available 05/12/2017 09:59:50 [...] [facility] [address] [facility] [place] [address] Date of Keith e: Date/T pedrito Sharp jeimy: 1301 Locati on: [facility] Name: LANNY WALKER CH : Acct Number : [id number] Phone #: [phone] Sig juany ___ Cristine beatty MD: [...] overly ing L5. Additi onally there is bacon slicer ior spinal fusion hardwa re with pedicl e screws at L4, and S1. The orthop edic hardwa re is intact . There is no eviden ce of spondy lolist hesis of the lumbar spine from flexio n to extens ion. Of note howeve r, it is diffic ult to visual ize the inferi or bacon slicer ior margin of L5 verteb josafat due [...] 1514 Patien t accoun t number : [id number] Orderi ng physic leo: John Clarke Other provid ers: John Clarke , , , Physic leo Non Staff, John Clarke , Physic leo Non Staff, John Clarke [facility] (Scheduling Dept) [address] [place], [address], 05/11/2017 16:17:01 Result Notes None recorded. Procedures Surgical History Date Name Laterality Status Provider Name and Address Organization Details Recorded Time 5 General Surgery completed Keegan Clarke MD [address] [place] [address],[address] [place] [address], [phone], [place] - [facility] 04/11/2017 14:34:18 0 Brain Surgery completed Keegan Clarke MD [address] [place] [address], [phone], [place] [facility] 04/11/2017 14:26:47 0 Lumbar Spine Surgery completed Keegan Clarke MD [address] [place] [address], [phone], [place] [facility] 04/11/2017 14:29:18 0 Knee Surgery completed Keegan Clarke MD [address] [place] [address], [phone], [place] [facility] 04/11/2017 14:31:15 1 Orthopedic Surgery completed Keegan Clarke MD [address] [place] [address], [phone], [facility] - [facility] 04/11/2017 15:00:46 6 Knee Surgery completed Keegan Clarke MD [address] [place] [address], [phone], [place] - [facility] 04/11/2017 15:01:09 09/11/ 0 Lumbar Spine Surgery completed Keegan Clarke MD [address] [place] [address],[address] [place] [address], [place], [phone], [place] - [facility] 04/11/2017 14:27:53 Orthopedic Surgery completed Keegan Clarke MD [address] [place] [address],[address] [place] [address], [place], [phone], [place] - [facility] 05/11/2017 11:37:30 Imaging Results Imaging Date Name Status LastModified by Organization Details LastModified Time 02/10/2015 MRI, lumbar spine, w[facility]o [facility] not available 05/11/2017 16:17:01 08/25/2009 MRI, lumbar spine, w/o contrast completed Information not available 05/11/2017 16:17:01 02/02/2017 fluoroscopic guidance for needle placement (PROC) completed [facility] Information not available 05/11/2017 16:17:01 02/10/2015 MRI, lumbar spine, w/o contrast completed Information not available 05/11/2017 16:17:01 08/25/2009 MRI, lumbar spine, w/o contrast completed [facility] Information not available 05/11/2017 16:17:01 05/10/2017 XR, lumbar spine completed [facility] (Scheduling Dept) [address] [place] [address], [address], 05/11/2017 16:17:01 Procedure Notes None recorded. Medical [...] Updated DateTime 04/11/2017 193.04 cm 26.8 kg/m2 25291.32 g 125 mm[Hg] 82 mm[Hg] Angela Wright [place] - [facility] 14:03:44 Social History Question Answer Notes LastModified by Organizat ion Details LastModified Time Tobacco Smoking Status Never Smoker Angela shea [place] - [facility] 04/11/2017 14:03:57 Accident Related Injury No Information [...] Hyperthyroidism N MRSA N Head Trauma/Injury N COPD N Depression N Pneumonia N Spine Problems Y Headaches/Migraines N Obstructive Sleep Apnea N Anxiety Disorder N Autoimmune disease N Vision or Eye Problems N Arthritis N Cancer N Stroke N Neck Injury N Other Sleep Disorders N Headaches N Fibromyalgia N Kidney Disease N Heart Problems N Heart Disease/Heart Problems N Hospitalizations N Migraines N Brain Tumors Y Encephalitis N PTSD N Meningitis N Ulcers N Bleeding Disorder N Tuberculosis N Cerebral Palsy N Back Problems N Asthma N Vertigo N Sleep Disorder N Hepatitis N Spine surgery Y Lung Disease N Hypothyroidism N Orthopedic Problems Y Developmental Problems N Congenital Anomalies N Liver Disease N [place] N Parkinson's Disease N Thyroid Problems N Multiple Sclerosis N Heart Attack ([place]) N Neurological Problems N Diabetes N Seizures/Epilepsy N Hyperlipidemia N Dementia N Lupus N Epilepsy/Seizures N Mental Problems N Aneurysm N Hypertension N Osteoporosis N Past Encounters Encounter ID Performer Location Encounter Start Date Encounter Closed Date Diagnosis/Indication Diagnosis SNOMED-CT Code Diagnosis ICD10 Code Diagnosis Note [id number] Keegan Clarke MD Main Office [address] [place] [phone] 05/11/2017 10:58:24 05/12/2017 10:18:38 Lumbar post-laminectomy syndrome 344843003 M96.1 INTRACTABL E PAIN -06/20 Sciatica 26056468 M54.32 INTRACTABL E PAIN, LEFT WITH LLE WEAKNESS. Chronic in tractable pain 175792985 G89.29 LOW BACK Health Concerns Section Related Observation LastModified by Organization Detai ls LastModified Time None Recorded Concern Status LastModified by Organization Details LastModified Time None Recorded Advance Directives Directive N: Payers Encounter Date Sequence Insurance Name Policy Number Policy Amato Covered Member ID Amato Member ID Guarantor Name 05/11/2017 1 [place]: [employer] Chris Lin [id number] Chris Lin 05/11/2017 2 [facility]LY [facility] INDEMNITY PLAN - [facility] [id number] Chris Lin [id number] Chris Lin Notes Date Note Type Note Provider Name and Address Organization Details Recorded Time 05/11/2017 text/html 66 Y.O. WITH CHRONIC INTRACTABLE PAIN WITH MULTIPLE LS SPINE OPERATIONS, AND FAILED BACK SYNDROME, AND FAILED WITH ADEQUATE CONTROL OF HIS CHRONIC INTRACTABLE LBP/LLE PAIN. PCP NOTE DETAILS THAT AND THAT TRIAL OF IT NARCOTIC RX INDICATED, AT THIS STAGE. Keegan Clarke MD [address] [place] [address],[address]LOOR, [place], [phone], [facility] - [facility] 05/11/2017 16:23:53
--- OUTSIDE RECORDS SUMMARY | 2024-11-11 08:52 | XMS_ITS | Clinical Summary ---
Author Organization [facility] Address [address] [place] [address] Care Team Providers Care Director Human Services Name Role Phone Unavailable Primary Care Provider [...]
--- OUTSIDE RECORDS SUMMARY | 2024-11-11 08:52 | XMS_ITS | Clinical Summary ---
Author Organization [facility] Address [address] [place] [address] Care Team Providers Care Well Logging Captain Mud Analysis Name Role Phone Unavailable Primary Care Provider [...]
== END 2024-11-11 09:03 | disposition home or self-care (01) ==
PROVIDERS: PCP Internal Medicine; Visit Provider Anesthesiology
DX: M96.1 Postlaminectomy syndrome, not elsewhere classified (principal); G89.4 Chronic pain syndrome; Z45.1 Encounter for adjustment and management of infusion pump
CPT/HCPCS: 95991; 99213

== ENCOUNTER → 2024-11-11 08:29 | Outpatient (BNVA) | payer MEDICARE, OTHER, SELFPAY | PROVIDERS: PCP Internal Medicine; Visit Provider Anesthesiology | DX: M96.1 Postlaminectomy syndrome, not elsewhere classified (principal); G89.4 Chronic pain syndrome; Z96.82 Presence of neurostimulator | CPT/HCPCS: 99212 ==

== ENCOUNTER 2024-12-09 08:33 | Outpatient (AMB) | payer MEDICARE, OTHER, SELFPAY ==
[2024-12-09 08:37] VITALS: BP 130/58; PULSE 67; RESP 16; O2SAT 96; BMI 28.6
--- NOTE | 2024-12-09 08:37 | MHC.OFFVIS ---
Vital Signs 12/09/24 08:37 Height 6 ft 4 in Weight 235 lb BMI 28.6 BP 130/58 L Blood Pressure Location Lt brachial Position Supine Respiration 16 Pulse 67 Pulse Source Pulse Oximeter Pulse Oximetry (%) 96 Oxygen Delivery Method Room Air Intake Visit Reasons: 1 Month Follow Up Cloth Printing Inspector Required: No Allergies No Known Allergies Allergy (Verified 12/09/24 08:38) Medication List - Last Reconciled 12/09/24 by Hawa Cao LPN bethanechol chloride 25 mg PO BID cephalexin 1,000 mg (2 x 500 mg) PO Q8H 16 days diazepam 10 mg PO BID escitalopram oxalate 20 mg PO DAILY finasteride 5 mg PO DAILY lamotrigine 200 mg PO BID naloxegol (Movantik) 25 mg PO DAILY naloxone 4 mg/actuation 4 mg intranasal Q2M 1 day omeprazole 20 mg PO DAILY zolpidem 10 mg PO BEDTIME PRN HPI Comments Details: Chris continues to complain of severe pain in the right lower extremity his usual pain getting exacerbated. he requests me to start bupivacaine in his pain pump again. If I remember it correctly he had side effects on bupivacaine including urinary retention. I told him that I do not mind to start bupivacaine for him. We will start very low and slow from minimal doses. Currently with concentration of the morphine 10 milligrams/mL we adjusted his pump today with increased dose of the morphine 2.1 mg a day. The minimal concentration of bupivacaine is 0.01 mg a day. I do not believe he would appreciate any difference with this kind of a dosing. I will start him on 0.1 mg a day and continue to escalate this dose further. He last time reported that Prialt addition to his pain pump resulted in awkwardness in his lower extremities and difficulty with the gait. Ataxia suspected and patient's Prialt was revoked. Prior: Intrathecal pump replacement was done on 09/20/2024. A new system with a new catheter was given to the patient during this procedure. very pleasant 73 years old gentleman who presents in my office with complains on pain in lower back and sensation of burning in bilateral lower extremities. She reports that pain in bilateral lower extremity started in 2018 after a chiropractor perform some sort of manipulation on his back. Even before that he was suffering from postlaminectomy syndrome which was treated in [place] with intrathecal pain pump. His pump is 6 years old and due to be replaced in fall of 2023. He reports that he can not sleep normally can not do activities of daily living can not take care of himself can not function normally he is retired individual. He reports that he needs walker occasionally for ambulation. He reports that most comfortable position for him is in the left hand side in the bed and he also reports that when he is sitting or standing his pain in bilateral lower extremities and unbearable.He currently onadmixture of Morphine 10 mg/ ml and 30 mg of bupivacaine, as well as clonidine 650 mcg per ml. He receives continuous infusion of morphine 1.835 mg per day and corresponding doses of the clonidine and bupivacaine. He does not have PTM device. He reports that PTM device make him ?addicted to morphine ?. Apparently he had multiple images of his lumbar spine done in [facility] last MRI was done in 2014. He reports that he is taking herbal or homeopathic treatments for his pain. He received multiple nerve blocks epidurals and apparently he had 2 trials of spinal cord stimulator with [facility] pain management. He reports past medical history of peripheral arterial disease with status post stent in the left femoral artery, he has prostate problem arthritis. His past surgical history significant for left total knee replacement in 2008. He had surgery for back fusion in 2009 and he reported cranial surgery in 2008. He is currently taking Ambien diazepam bethanechol and lamotrigine. He denies smoking cigarettes admits occasional rare take of alcohol drinks decaffeinated coffee and denies recreational drugs. [facility] Medical History (Updated 09/18/24 @ 13:33 by Ana Berrios RN) Implantable intrathecal infusion pump present Postoperative urinary retention Opioid dependence, uncomplicated Complex regional pain syndrome i of lower limb, bilateral Insomnia, unspecified Chronic pain disorder Postlaminectomy syndrome, not elsewhere classified Surgical History (Updated 09/20/24 @ 07:57 by Rosario Berry RN) History of surgery H/O knee surgery History of back surgery Social History Are you a primary healthcare corporate account director to a significant other at home: No Do you presently have visiting nurse or other home services: No Comment: Balance issues at home Patient Tobacco Use Status: Never used Tobacco Review of Systems Const All systems reviewed & are unremarkable except as noted in HPI and below ENT Reports Normal hearing present Neuro Reports Normal hearing present, Denies Abnormal speech present, Denies confusion and Denies Sensory deficit (Neuro) Psych Denies confusion Physical Exam Vital Signs: Last Vital Signs Pulse 67 12/09/24 08:37 Resp 16 12/09/24 08:37 BP 130/58 L 12/09/24 08:37 Pulse Ox 96 12/09/24 08:37 Oxygen Delivery Method Room Air 12/09/24 08:37 BMI result Body Mass Index 28.6 Const General: No confusion Orientation/consciousness: No confusion Eyes General: appearance normal, both eyes and all related structures Pupils: Equal, round and reactive pupils present EOM: EOMs intact bilaterally Neck Neck: Yes full ROM Chest Chest palpation & inspection: normal inspection of the chest Resp Effort & Inspection: normal respiratory effort, able to speak in complete sentences, normal respiratory pattern, no audible wheezes and no cough Cardio Jugular venous distension: no JVD GI Inspection: Yes normal to inspection Back/Spine/Pelvis Other: He has very well-healed scar in inspection in the projection of the L4-5 and S1 vertebra spinous processes. He also has scar in the left lower abdomen in Pfannenstiel fashion evidence of 2nd fusion. He is in no obvious mild distress today he prefers to positioned himself flat on the examination table during the conversation. No tenderness on palpation in paraspinal spinal region lumbar spine. Mild tenderness on palpation in projection of the sacral bone. SLR is negative bilaterally. Asaf's test is negative bilaterally. Valsalva maneuver does not aggravate his pain. He denies incontinence with urine or stool. He denies urinary retention Neuro General: No confusion Cranial nerves: Yes Equal, round and reactive pupils present and Yes Normal hearing present Speech: No Abnormal speech present Gait exam (Neuro): Normal gait present Motor exam (neuro): 5/5 motor strength present throughout Sensory Exam: No Sensory deficit (Neuro) Extrem General: No pedal edema Psych Speech and movement: Normal speech and movement present Affect: normal affect Attitude: cooperative Thought process: Normal thought process present Thought content: Normal thought content present Insight: Good insight present (Psych) Judgement: Good judgement present (Psych) Assessment & Plan Assessment & Plan (1) Postlaminectomy syndrome: Code(s): M96.1 - Postlaminectomy syndrome, not elsewhere classified Category: Medical (2) Chronic pain disorder: Code(s): G89.4 - Chronic pain syndrome Category: Medical Plan: Intrathecal pump adjustment. Morphine concentration is 10 milligrams/mL. Patient is on continuous dose of the morphine without PTM. Patient insists on and refused to start PTM. His 24 hours dose was 1.699mg per day. I increase the dose to 1.699 mg per day. I increased the dose of the morphine today to 2.102 mg a day. (3) Implantable intrathecal infusion pump present: Code(s): Z96.89 - Presence of other specified functional implants Category: Medical Plan: He continues to complain on severe intractable pain in the lower extremity. He requests me to restart bupivacaine. I will start 0.1 mg a day. His concentration is 10 milligrams/mL. His dose of morphine is 2.1 mg a day. Therefore to reach the dose of 0.1 mg a day of bupivacaine I need to introduce the concentration of 0.48 mg of bupivacaine per mL. Plan Further escalation of the bupivacaine will be explored if patient will report no side effects on bupivacaine. Coding Level of Care Code Est Pt Level 3 (88279) Procedure Only Diagnoses Postlaminectomy syndrome M96.1 Chronic pain disorder G89.4 Implantable intrathecal infusion pump present Z96.89
== END 2024-12-09 08:57 | disposition home or self-care (01) ==
PROVIDERS: PCP Internal Medicine; Visit Provider Anesthesiology
DX: M96.1 Postlaminectomy syndrome, not elsewhere classified (principal); G89.4 Chronic pain syndrome; Z96.89 Presence of other specified functional implants; Z45.1 Encounter for adjustment and management of infusion pump
CPT/HCPCS: 95991; 99213

== ENCOUNTER → 2024-12-09 08:33 | Outpatient (BNVA) | payer MEDICARE, OTHER, SELFPAY | PROVIDERS: PCP Internal Medicine; Visit Provider Anesthesiology | DX: M96.1 Postlaminectomy syndrome, not elsewhere classified (principal); G89.4 Chronic pain syndrome; Z96.89 Presence of other specified functional implants; Z79.891 Long term (current) use of opiate analgesic; Z96.652 Presence of left artificial knee joint | CPT/HCPCS: 99212 ==

== ENCOUNTER 2025-01-02 08:32 | Outpatient (AMB) | payer MEDICARE, OTHER, SELFPAY ==
--- NOTE | 2025-01-02 08:42 | MHC.OFFVIS ---
Vital Signs 01/02/25 08:57 Height 6 ft 4 in BP 146/80 H Blood Pressure Location Rt brachial Position Sitting Pulse 71 Pulse Source Pulse Oximeter Intake Visit Reasons: pump fill/ med change Intake Note: Pain today 05/21 Social Media Coordinator Required: No Accompanied by: Self / Same As Patient Allergies No Known Allergies Allergy (Verified 01/02/25 08:58) HPI Comments Details: Chris continues to complain of severe pain in the right more than left lower extremity his usual pain getting exacerbated. We discussed possibility of treating his pain with spinal cord stimulator. He reports that he had trial of spinal cord stimulator twice however he denies trying [employer] spinal cord stimulator with long trial leads. We agreed that after he will pass psychological evaluation we will schedule him for [employer] SCS trial. Currently with concentration of the morphine 10 milligrams/mL we adjusted his pump today with increased dose of the morphine 3 mg a day. The pump refill is as below. Previously had addition of the bupivacaine in the pump which was not helping his pain. He last time reported that Prialt addition to his pain pump resulted in awkwardness in his lower extremities and difficulty with the gait. Ataxia suspected and patient's Prialt was revoked. Prior: Intrathecal pump replacement was done on 09/20/2024. A new system with a new catheter was given to the patient during this procedure. 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 She reports that pain in bilateral lower extremity started in 2018 after a chiropractor perform some sort of manipulation on his back. Even before that he was suffering from postlaminectomy syndrome which was treated in [place] with intrathecal pain pump. His pump is 6 years old and due to be replaced in fall of 2023. He reports that he can not sleep normally can not do activities of daily living can not take care of himself can not function normally he is retired individual. He reports that he needs walker occasionally for ambulation. He reports that most comfortable position for him is in the left hand side in the bed and he also reports that when he is sitting or standing his pain in bilateral lower extremities and unbearable.He currently onadmixture of Morphine 10 mg/ ml and 30 mg of bupivacaine, as well as clonidine 650 mcg per ml. He receives continuous infusion of morphine 1.835 mg per day and corresponding doses of the clonidine and bupivacaine. He does not have PTM device. He reports that PTM device make him ?addicted to morphine ?. Apparently he had multiple images of his lumbar spine done in [facility] last MRI was done in 2014. He reports that he is taking herbal or homeopathic treatments for his pain. He received multiple nerve blocks epidurals and apparently he had 2 trials of spinal cord stimulator with [facility] pain management. He reports past medical history of peripheral arterial disease with status post stent in the left femoral artery, he has prostate problem arthritis. His past surgical history significant for left total knee replacement in 2008. He had surgery for back fusion in 2009 and he reported cranial surgery in 2008. He is currently taking Ambien diazepam bethanechol and lamotrigine. He denies smoking cigarettes admits occasional rare take of alcohol drinks decaffeinated coffee and denies recreational drugs. [facility] Medical History (Updated 09/18/24 @ 13:33 by Ana Berrios RN) Implantable intrathecal infusion pump present Postoperative urinary retention Opioid dependence, uncomplicated Complex regional pain syndrome i of lower limb, bilateral Insomnia, unspecified Chronic pain disorder Postlaminectomy syndrome, not elsewhere classified Surgical History (Updated 09/20/24 @ 07:57 by Rosario Berry RN) History of surgery H/O knee surgery History of back surgery Social History Are you a primary hemodialysis patient care specialist to a significant other at home: No Do you presently have visiting nurse or other home services: No Comment: Balance issues at home Patient Tobacco Use Status: Never used Tobacco Review of Systems Const All systems reviewed & are unremarkable except as noted in HPI and below ENT Reports Normal hearing present Neuro Reports Normal hearing present, Denies Abnormal speech present, Denies confusion and Denies Sensory deficit (Neuro) Psych Denies confusion Physical Exam Vital Signs: Last Vital Signs Pulse 71 01/02/25 08:57 BP 146/80 H 01/02/25 08:57 Const General: No confusion Orientation/consciousness: No confusion Eyes General: appearance normal, both eyes and all related structures Pupils: Equal, round and reactive pupils present EOM: EOMs intact bilaterally Neck Neck: Yes full ROM Chest Chest palpation & inspection: normal inspection of the chest Resp Effort & Inspection: normal respiratory effort, able to speak in complete sentences, normal respiratory pattern, no audible wheezes and no cough Cardio Jugular venous distension: no JVD GI Inspection: Yes normal to inspection Back/Spine/Pelvis Other: He has very well-healed scar in inspection in the projection of the L4-5 and S1 vertebra spinous processes. He also has scar in the left lower abdomen in Pfannenstiel fashion evidence of 2nd fusion. He is in no obvious mild distress today he prefers to positioned himself flat on the examination table during the conversation. No tenderness on palpation in paraspinal spinal region lumbar spine. Mild tenderness on palpation in projection of the sacral bone. SLR is negative bilaterally. Asaf's test is negative bilaterally. Valsalva maneuver does not aggravate his pain. He denies incontinence with urine or stool. He denies urinary retention Neuro General: No confusion Cranial nerves: Yes Equal, round and reactive pupils present and Yes Normal hearing present Speech: No Abnormal speech present Gait exam (Neuro): Normal gait present Motor exam (neuro): 5/5 motor strength present throughout Sensory Exam: No Sensory deficit (Neuro) Extrem General: No pedal edema Psych Speech and movement: Normal speech and movement present Affect: normal affect Attitude: cooperative Thought process: Normal thought process present Thought content: Normal thought content present Insight: Good insight present (Psych) Judgement: Good judgement present (Psych) Assessment & Plan Assessment & Plan (1) Postlaminectomy syndrome: Code(s): M96.1 - Postlaminectomy syndrome, not elsewhere classified Category: Medical (2) Chronic pain disorder: Code(s): G89.4 - Chronic pain syndrome Category: Medical Plan: Intrathecal pump refill. THE PATIENT CAME TODAY IN the office FOR THE CHANGE OF THE MEDICATION IN her PAIN PUMP. The name and date of were verified and informed consent was obtained for the procedure. ?The pump was interrogated and the residual amount of fluid was found to be 29.3 mL. HE WAS POSITIONED supine on the bed AND THE AREA OF THE INTRATHECAL PUMP in his left mid abdomen WAS PREPPED WITH CHLORAPREP. The fenestrated drape was sterilely applied over the area of the pump. Sterile gloves were worn and of the aspiration system was assembled containing 2 in 22 gauge noncoring needle, the needle was connected to extension tubing which was connected to the 20 cc sterile syringe. The pain pump was palpated under the skin in the patient's right buttock area. The needle was inserted through the skin and the central plug of the pain pump and fluid was aspirated. The clear fluid was going into the syringe the total amount of the fluid was 29.2 mL .. After that a new batch? of medication was obtained which was containing morphine 10 milligrams/mL . The admixture was made in the two 20 cc syringes prepared by [facility] compounding pharmacy. The syringes were sequentially connected to the bacterial filter, and then connected to the extension tubing. After that the medication in the syringe was slowly instilled into the pump with aspirations at 35, 15 and 5 cc sevilla.? The pump was reprogrammed for the continuous doses of morphine 3 mg per day . (3) Implantable intrathecal infusion pump present: Code(s): Z96.89 - Presence of other specified functional implants Category: Medical Plan: To help this patient I am planning to perform trial of SCS [employer] with 16 lead trials. If this will be working well for the patient we can proceed with the SCS [employer] implantation with 16 lead trials. Plan . Coding Level of Care Code Est Pt Level 3 (56823) Procedure Only Diagnoses Postlaminectomy syndrome M96.1 Chronic pain disorder G89.4 Implantable intrathecal infusion pump present Z96.89
--- OUTSIDE RECORDS SUMMARY | 2025-01-02 08:56 | XMS_ITS | Data Portability ---
Author Organization [place] - [facility] Address [address] [place] [id number] Care Team Providers Care Coin Box Collector Name Role Phone GISELLE SIMS Primary Care [...] By Organization Details Last Modified Time 05/11/2017 [id number] sciatica: care instructions Not available 05/12/2017 09:59:50 [...] [facility] [address] [facility] [place] [address] Date of Keith e: Date/T pedrito Sharp jeimy: 1301 Locati on: Mois[facility] Name: LANNY WALKER CH : Acct Number : [id number] Phone #: [phone] Sig juany ___ Cristine beatty MD: [...] overly ing L5. Additi onally there is it risk analyst ior spinal fusion hardwa re with pedicl e screws at L4, and S1. The orthop edic hardwa re is intact . There is no eviden ce of spondy lolist hesis of the lumbar spine from flexio n to extens ion. Of note howeve r, it is diffic ult to visual ize the inferi or it risk analyst ior margin of L5 verteb josafat due [...] 1514 Patien t accoun t number : [id number] Orderi ng physic leo: John Clarke Other provid ers: John Clarke , , , Physic leo Non Staff, John Clarke , Physic leo Non Staff, John Clarke [facility] (Scheduling Dept) [address] [place], [address], 05/11/2017 16:17:01 Result Notes None recorded. Procedures Surgical History Date Name Laterality Status Provider Name and Address Organization Details Recorded Time 5 General Surgery completed Keegan Clarke MD [address] [place] [address],[address] [place] [address], [phone], [place] - [facility] 04/11/2017 14:34:18 0 Brain Surgery completed Keegan Clarke MD [address] [place] [address], [phone], [place] [facility] 04/11/2017 14:26:47 0 Lumbar Spine Surgery completed Keegan Clarke MD [address] [place] [address], [phone], [place] [facility] 04/11/2017 14:29:18 0 Knee Surgery completed Keegan Clarke MD [address] [place] [address], [phone], [place] [facility] 04/11/2017 14:31:15 1 Orthopedic Surgery completed Keegan Clarke MD [address] [place] [address], [phone], [facility] - [facility] 04/11/2017 15:00:46 6 Knee Surgery completed Keegan Clarke MD [address] [place] [address], [phone], [place] - [facility] 04/11/2017 15:01:09 09/11/ 0 Lumbar Spine Surgery completed Keegan Clarke MD [address] [place] [address],[address] [place] [address], [place], [phone], [place] [facility] 04/11/2017 14:27:53 Orthopedic Surgery completed Keegan Clarke MD [address] [place] [address],[address] [place] [address], [place], [phone], [place] [facility] 05/11/2017 11:37:30 Imaging Results Imaging Date Name Status LastModified by Organization Details LastModified Time 02/10/2015 MRI, lumbar spine, w/o contrast completed [facility] Information not available 05/11/2017 16:17:01 08/25/2009 MRI, lumbar spine, w/o contrast completed Information not available 05/11/2017 16:17:01 02/02/2017 fluoroscopic guidance for needle placement (PROC) completed [facility] Information not available 05/11/2017 16:17:01 02/10/2015 MRI, lumbar spine, w/o contrast completed Information not available 05/11/2017 16:17:01 08/25/2009 MRI, lumbar spine, w/o contrast completed [facility] Information not available 05/11/2017 16:17:01 05/10/2017 XR, lumbar spine completed [facility] (Scheduling Dept) [address] [place] [address], [id number], 05/11/2017 16:17:01 Procedure Notes None recorded. Medical [...] Updated DateTime 04/11/2017 193.04 cm 26.8 kg/m2 10385.32 g 125 mm[Hg] 82 mm[Hg] Angela Wright [place] - [facility] 14:03:44 Social History Question Answer Notes LastModified by Organizat ion Details LastModified Time Tobacco Smoking Status Never Smoker Angela shea [place] - [facility] 04/11/2017 14:03:57 Accident Related Injury [...] Multiple Sclerosis N Meningitis N Heart Attack ([place]) N Ulcers N Neurological Problems N Diabetes [...] SNOMED-CT Code Diagnosis ICD10 Code Diagnosis Note [id number] Keegan Clarke MD Main Office [address] [place] [phone] 05/11/2017 10:58:24 05/12/2017 10:18:38 Lumbar post-laminectomy syndrome 546457524 M96.1 INTRACTABL E PAIN -06/20 Sciatica 02393048 M54.32 INTRACTABL E PAIN, LEFT WITH LLE WEAKNESS. Chronic in tractable pain [id number] G89.29 LOW BACK Health Concerns Section Related Observation LastModified by Organization Detai ls LastModified Time None Recorded Concern Status LastModified by Organization Details LastModified Time None Recorded Advance Directives Directive N: Payers Encounter Date Sequence Insurance Name Policy Number Policy Amato Covered Member ID Amato Member ID Guarantor Name 05/11/2017 1 [place]IC[place]: [employer] Chris Lin [id number] Chris Lin 05/11/2017 2 [facility] INDEMNITY [facility] - [facility] [id number] Chris Lin [id number] Chris Lin Notes Date Note Type Note Provider Name and Address Organization Details Recorded Time 05/11/2017 text/html 66 Y.O. WITH CHRONIC INTRACTABLE PAIN WITH MULTIPLE LS SPINE OPERATIONS, AND FAILED BACK SYNDROME, AND FAILED WITH ADEQUATE CONTROL OF HIS CHRONIC INTRACTABLE LBP/LLE PAIN. PCP NOTE DETAILS THAT AND THAT TRIAL OF IT NARCOTIC RX INDICATED, AT THIS STAGE. Keegan Clarke MD [address] [place] [address],[address] FLOOR, [place], [phone], [facility] - [facility] 05/11/2017 16:23:53
--- OUTSIDE RECORDS SUMMARY | 2025-01-02 08:56 | XMS_ITS | Clinical Summary ---
Author Organization [facility] Address [address] [place] [address] Care Team Providers Care Autism Motor Specialist Name Role Phone Unavailable Primary Care Provider Unavailabl e Social History Tobacco Use Types Packs/Day Years Used Date Smoking Tobacco: Never Assessed Sex and Gender Information Value Date Recorded Sex Assigned at Not on file Legal Sex Male 3:55 PM EDT Gender Identity Not on file Sexual Orientation Not on file Plan of Treatment Health Maintenance Due Date Last Done Comments Hepatitis C Virus Screening 1950 DTaP/Tdap/Td Vaccines (1 - Tdap) 1969 Pneumococcal Vaccines 50+ (1 of 1 - PCV) 2000 Zoster (Shingles) Vaccine (1 of 2) 2000 COVID-19 Vaccine ( - 2023-2 5 season) 2024 RSV Vaccine 60 years and old er and Patients (1 - 1-dose 75+ series) 2025 Hepatitis B Vaccines Aged Out No long er eligible based on patient's age to complete this topic
--- OUTSIDE RECORDS SUMMARY | 2025-01-02 08:56 | XMS_ITS | Clinical Summary ---
Author Organization [facility] Address [address] [place] [address] Care Team Providers Care Genetics Physician Name Role Phone Unavailable Primary Care Provider [...] - 2023-2 5 season) 2024 Influenza Vaccine (Season Ended) 2025 RSV Immunization Adult Patie nts (1 - 1-dose 75+ series) 2025 HIB [...] age to complete this topic Meningococcal B Vaccine Aged Out No l onger eligible based on patient's age to complete this topic RSV Immunization Patients Un bryant 20 months Aged Out No longer eligible b ased on patient's age to complete this topic Varicella Vaccines Aged Out No longer eligible based on patient's age to complete this topic
--- OUTSIDE RECORDS SUMMARY | 2025-01-02 08:56 | XMS_ITS | Clinical Summary ---
Author Organization [facility] Address [address] [place] [address] Care Team Providers Care Consumer Banker Name Role Phone Unavailable Primary Care Provider [...]
[2025-01-02 08:57] VITALS: BP 146/80; PULSE 71
== END 2025-01-02 09:04 | disposition home or self-care (01) ==
LOC: HO.PMC 08:32
PROVIDERS: PCP Internal Medicine; Visit Provider Anesthesiology
DX: G89.4 Chronic pain syndrome (principal); M96.1 Postlaminectomy syndrome, not elsewhere classified; Z96.89 Presence of other specified functional implants; Z45.1 Encounter for adjustment and management of infusion pump
CPT/HCPCS: 62370; 99213

== ENCOUNTER → 2025-01-02 08:32 | Outpatient (BNVA) | payer MEDICARE, OTHER, SELFPAY | PROVIDERS: PCP Internal Medicine; Visit Provider Anesthesiology | DX: Z45.89 Encounter for adjustment and management of other implanted devices (principal); M96.1 Postlaminectomy syndrome, not elsewhere classified; G89.4 Chronic pain syndrome; Z96.89 Presence of other specified functional implants | CPT/HCPCS: 62370; 99212 ==

== ENCOUNTER 2025-01-08 08:38 | Outpatient (AMB) | payer MEDICARE, OTHER, SELFPAY ==
[2025-01-08 08:47] VITALS: BP 116/57; PULSE 63; RESP 16; O2SAT 98; BMI 28.6
--- NOTE | 2025-01-08 08:47 | A.OFFVIS_ITS ---
Vital Signs 01/08/25 08:47 Height 6 ft 4 in Weight 235 lb BMI 28.6 BP 116/57 L Blood Pressure Location Lt brachial Position Sitting Respiration 16 Pulse 63 Pulse Source Pulse Oximeter Pulse Oximetry (%) 98 Oxygen Delivery Method Room Air Intake Visit Reasons: Pump adjustment? patient having pump problems Senior Technical Manager Required: No Allergies No Known Allergies Allergy (Verified 01/08/25 08:48) Medication List - Last Reconciled 01/08/25 by Hawa Cao LPN bethanechol chloride 25 mg PO BID diazepam 10 mg PO BID escitalopram oxalate 20 mg PO DAILY finasteride 5 mg PO DAILY lamotrigine 200 mg PO BID montelukast 10 mg PO BEDTIME naloxegol (Movantik) 25 mg PO DAILY naloxone 4 mg/actuation 4 mg intranasal Q2M 1 day omeprazole 20 mg PO DAILY zolpidem 10 mg PO BEDTIME PRN HPI Comments Details: Chris presents today in my office with the complains on constipation. I discussed it with the patient. He stated that he has Movantik at home prescribed to him by primary care physician, he states that Movantik does not help with constipation. He requests me to decrease the dose of the opioids. We discussed again possibility of treating his pain with spinal cord stimu lator. He reports that he had trial of spinal cord stimulator twice however he denies trying [employer] spinal cord stimulator with long trial leads. We agreed that after he will pass psychological evaluation we will schedule him for [employer] SCS trial. The pain pump was interrogated today and the daily dose was decreased from 2.4 mg to 2 mg a day. Prior: Intrathecal pump replacement was done on 09/20/2024. A new system with a new catheter was given to the patient during this procedure. 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 She reports that pain in bilateral lower extremity started in 2018 after a chiropractor perform some sort of manipulation on his back. Even before that he was suffering from postlaminectomy syndrome which was treated in [place] with intrathecal pain pump. His pump is 6 years old and due to be replaced in fall of 2023. He reports that he can not sleep normally can not do activities of daily living can not take care of himself can not function normally he is retired individual. He reports that he needs walker occasionally for ambulation. He reports that most comfortable position for him is in the left hand side in the bed and he also reports that when he is sitting or standing his pain in bilateral lower extremities and unbearable.He currently onadmixture of Morphine 10 mg/ ml and 30 mg of bupivacaine, as well as clonidine 650 mcg per ml. He receives continuous infusion of morphine 1.835 mg per day and corresponding doses of the clonidine and bupivacaine. He does not have PTM device. He reports that PTM device make him ?addicted to morphine ?. Apparently he had multiple images of his lumbar spine done in [facility] last MRI was done in 2014. He reports that he is taking herbal or homeopathic treatments for his pain. He received multiple nerve blocks epidurals and apparently he had 2 trials of spinal cord stimulator with [facility] pain management. He reports past medical history of peripheral arterial disease with status post stent in the left femoral artery, he has prostate problem arthritis. His past surgical history significant for left total knee replacement in 2008. He had surgery for back fusion in 2009 and he reported cranial surgery in 2008. He is currently taking Ambien diazepam bethanechol and lamotrigine. He denies smoking cigarettes admits occasional rare take of alcohol drinks decaffeinated coffee and denies recreational drugs. [facility] Medical History (Updated 09/18/24 @ 13:33 by Ana Berrios RN) Implantable intrathecal infusion pump present Postoperative urinary retention Opioid dependence, uncomplicated Complex regional pain syndrome i of lower limb, bilateral Insomnia, unspecified Chronic pain disorder Postlaminectomy syndrome, not elsewhere classified Surgical History (Updated 09/20/24 @ 07:57 by Rosario Berry RN) History of surgery H/O knee surgery History of back surgery Social History Are you a primary care management specialist to a significant other at home: No Do you presently have visiting nurse or other home services: No Comment: Balance issues at home Patient Tobacco Use Status: Never used Tobacco Review of Systems Const All systems reviewed & are unremarkable except as noted in HPI and below ENT Reports Normal hearing present Neuro Reports Normal hearing present, Denies Abnormal speech present, Denies confusion and Denies Sensory deficit (Neuro) Psych Denies confusion Physical Exam Vital Signs: Last Vital Signs Pulse 63 01/08/25 08:47 Resp 16 04/30/25 08:47 BP 116/57 L 04/30/25 08:47 Pulse Ox 98 01/08/25 08:47 Oxygen Delivery Method Room Air 01/08/25 08:47 BMI result Body Mass Index 28.6 Const General: No confusion Orientation/consciousness: No confusion Eyes General: appearance normal, both eyes and all related structures Pupils: Equal, round and reactive pupils present EOM: EOMs intact bilaterally Neck Neck: Yes full ROM Chest Chest palpation & inspection: normal inspection of the chest Resp Effort & Inspection: normal respiratory effort, able to speak in complete sentences, normal respiratory pattern, no audible wheezes and no cough Cardio Jugular venous distension: no JVD GI Inspection: Yes normal to inspection Back/Spine/Pelvis Other: He has very well-healed scar in inspection in the projection of the L4-5 and S1 vertebra spinous processes. He also has scar in the left lower abdomen in Pfannenstiel fashion evidence of 2nd fusion. He is in no obvious mild distress today he prefers to positioned himself flat on the examination table during the conversation. No tenderness on palpation in paraspinal spinal region lumbar spine. Mild tenderness on palpation in projection of the sacral bone. SLR is negative bilaterally. Asaf's test is negative bilaterally. Valsalva maneuver does not aggravate his pain. He denies incontinence with urine or stool. He denies urinary retention Neuro General: No confusion Cranial nerves: Yes Equal, round and reactive pupils present and Yes Normal hearing present Speech: No Abnormal speech present Gait exam (Neuro): Normal gait present Motor exam (neuro): 5/5 motor strength present throughout Sensory Exam: No Sensory deficit (Neuro) Extrem General: No pedal edema Psych Speech and movement: Normal speech and movement present Affect: normal affect Attitude: cooperative Thought process: Normal thought process present Thought content: Normal thought content present Insight: Good insight present (Psych) Judgement: Good judgement present (Psych) Assessment & Plan Assessment & Plan (1) Postlaminectomy syndrome: Code(s): M96.1 - Postlaminectomy syndrome, not elsewhere classified Category: Medical (2) Chronic pain disorder: Code(s): G89.4 - Chronic pain syndrome Category: Medical (3) Implantable intrathecal infusion pump present: Code(s): Z96.89 - Presence of other specified functional implants Category: Medical Plan: His pump was decreased day as above. We are working on came passing psychological evaluation so we can perform trial of [employer] spinal cord stimulator. To help this patient I am planning to perform trial of SCS [employer] with 16 lead trials. If this will be working well for the patient we can proceed with the SCS [employer] implantation with 16 lead trials. Plan . Coding Level of Care Code Est Pt Level 3 (02271) Diagnoses Postlaminectomy syndrome M96.1 Chronic pain disorder G89.4 Implantable intrathecal infusion pump present Z96.89
--- OUTSIDE RECORDS SUMMARY | 2025-01-08 08:54 | XMS_ITS | Clinical Summary ---
Author Organization [facility] Address [address] [place] [address] Care Team Providers Care Ferry Boat Captain Name Role Phone Unavailable Primary Care Provider [...]
--- OUTSIDE RECORDS SUMMARY | 2025-01-08 08:54 | XMS_ITS | Data Portability ---
Author Organization [place] - [facility] Address [address] [place] [address] Care Team Providers Care Front Office Supervisor Name Role Phone GISELLE SIMS Primary Care Provider [phone] GISELLE SIMS Referring Provider [phone] Assessment Encounter Date Assessment Date Assessment LastModified [...] By Organization Details Last Modified Time 05/11/2017 [id number] sciatica: care instructions Not available 05/12/2017 09:59:50 [...] [facility]ica l [facility] [address] [place] [place] [address] Date of Keith e: Date/T pedrito Sharp jeimy: 1301 Locati on: Moisés gamble [facility] Name: LANNY WALKER CH : Acct Number : [id number] Phone #: [phone] Sig juany ___ Cristine beatty MD: [...] overly ing L5. Additi onally there is nuclear fuels reclamation engineer ior spinal fusion hardwa re with pedicl e screws at L4, and S1. The orthop edic hardwa re is intact . There is no eviden ce of spondy lolist hesis of the lumbar spine from flexio n to extens ion. Of note howeve r, it is diffic ult to visual ize the inferi or nuclear fuels reclamation engineer ior margin of L5 verteb josafat due [...] of any osseou s lesion . IMPRES KAHLLI: NO EVIDEN CE OF SPONDY LOLIST HESIS, AND WITH FLEXIO N AND EXTENS ION, THERE IS NO EVIDEN CE TO SUGGES T ANY SUBLUX ATION. Transc ribed: RW 1412 Report [id number] Copies to: Simone Clarke Interp reting Physic leo: Ansley Gifford Approv ed Electr onical ly: Ansley Gifford 1514 Patien t accoun t number : [id number] Orderi ng physic leo: John Clarke Other provid ers: John Clarke , , , Physic leo Non Staff, John Clarke , Physic leo Non Staff, John Clarke [facility] (Scheduling Dept) [address] [place], [address], 05/11/2017 16:17:01 Result Notes None recorded. Procedures Surgical History Date Name Laterality Status Provider Name and Address Organization Details Recorded Time 5 General Surgery completed Keegan Clarke MD [address] [place] [address],[address] [place] [address], [phone], [place] [facility] 04/11/2017 14:34:18 0 Brain Surgery completed Keegan Clarke MD [address] [place] [address], [phone], [place] [facility] 04/11/2017 14:26:47 0 Lumbar Spine Surgery completed Keegan Clarke MD [address] [place] [address], [phone], [place] [facility] 04/11/2017 14:29:18 0 Knee Surgery completed Keegan Clarke MD [address] [place] [address], [phone], [place] [facility] 04/11/2017 14:31:15 1 Orthopedic Surgery completed Keegan Clarke MD [address] [place] [address], [phone], [facility] - [facility] 04/11/2017 15:00:46 6 Knee Surgery completed Keegan Clarke MD [address] [place] [address], [phone], [place] - [facility] 04/11/2017 15:01:09 09/11/ 0 Lumbar Spine Surgery completed Keegan Clarke MD [address] [place] [address],[address] [place] [address], [place], [phone], [place] [facility] 04/11/2017 14:27:53 Orthopedic Surgery completed Keegan Clarke MD [address] [place] [address],[address] [place] [address], [place], [phone], [place] [facility] 05/11/2017 11:37:30 Imaging Results Imaging Date Name Status LastModified by Organization Details LastModified Time 02/10/2015 MRI, lumbar spine, w/o contrast [facility] Information not available 05/11/2017 16:17:01 08/25/2009 MRI, lumbar spine, w/o contrast completed Information not available 05/11/2017 16:17:01 02/02/2017 fluoroscopic guidance for needle placement (PROC) completed [facility] Information not available 05/11/2017 16:17:01 02/10/2015 MRI, lumbar spine, w/o contrast completed Information not available 05/11/2017 16:17:01 08/25/2009 MRI, lumbar spine, w/o contrast completed [facility] Information not available 05/11/2017 16:17:01 05/10/2017 XR, lumbar spine completed [facility] (Scheduling Dept) [address] [place] [address], [address], 05/11/2017 16:17:01 Procedure Notes None recorded. Medical [...] Updated DateTime 04/11/2017 193.04 cm 26.8 kg/m2 82762.32 g 125 mm[Hg] 82 mm[Hg] Angela Wright [place] - [facility] 14:03:44 Social History Question Answer Notes LastModified by Organizat ion Details LastModified Time Tobacco Smoking Status Never Smoker Angela shea [place] - [facility] 04/11/2017 14:03:57 Accident Related Injury No Information [...] Hyperthyroidism N MRSA N Head Trauma/Injury N Depression N COPD N Hypothyroidism N Lung Disease N Pneumonia N Orthopedic Problems Y Spine Problems Y Headaches/Migraines N Obstructive Sleep Apnea N Anxiety Disorder N Autoimmune disease N Vision or Eye Problems N Arthritis N Developmental Problems N Congenital Anomalies N Cancer N Stroke N Neck Injury N Liver Disease N [place] N Other Sleep Disorders N Fibromyalgia N Headaches N Kidney Disease N Heart Problems N Parkinson's Disease N Heart Disease/Heart Problems N Hospitalizations N Migraines N Thyroid Problems N Brain Tumors Y Encephalitis N PTSD N Multiple Sclerosis N Meningitis N Ulcers N Heart Attack (AL) N Neurological Problems N Diabetes N Bleeding Disorder N Seizures/Epilepsy N Tuberculosis N Cerebral Palsy N Hyperlipidemia N Back Problems N Dementia N Asthma N Lupus N Epilepsy/Seizures N Mental Problems N Vertigo N Sleep Disorder N Hepatitis N Aneurysm N Spine surgery Y Hypertension N Osteoporosis N Past Encounters Encounter ID Performer Location Encounter Start Date Encounter Closed Date Diagnosis/Indication Diagnosis SNOMED-CT Code Diagnosis ICD10 Code Diagnosis Note [id number] Keegan Clarke MD Main Office [address] [place] [phone] 05/11/2017 10:58:24 05/12/2017 10:18:38 Lumbar post-laminectomy syndrome 049565859 M96.1 INTRACTABL E PAIN -06/20 Sciatica 74994768 M54.32 INTRACTABL E PAIN, LEFT WITH LLE WEAKNESS. Chronic in tractable pain 195941939 G89.29 LOW BACK Health Concerns Section Related Observation LastModified by Organization Detai ls LastModified Time None Recorded Concern Status LastModified by Organization Details LastModified Time None Recorded Advance Directives Directive N: Payers Encounter Date Sequence Insurance Name Policy Number Policy Amato Covered Member ID Amato Member ID Guarantor Name 05/11/2017 1 [place]IC[place]: [employer] Chris Lin [id number] Chris Lin 05/11/2017 2 [facility] IN[facility]MNITY [facility] - [facility] [id number] Chris Lin [id number] Chris Lin Notes Date Note Type Note Provider Name and Address Organization Details Recorded Time 05/11/2017 text/html 66 Y.O. WITH CHRONIC INTRACTABLE PAIN WITH MULTIPLE LS SPINE OPERATIONS, AND FAILED BACK SYNDROME, AND FAILED WITH ADEQUATE CONTROL OF HIS CHRONIC INTRACTABLE LBP/LLE PAIN. PCP NOTE DETAILS THAT AND THAT TRIAL OF IT NARCOTIC RX INDICATED, AT THIS STAGE. Keegan Clarke MD [address] [place] [address],[address]LOOR, [place], [address], [facility] - [facility] [place] 05/11/2017 16:23:53
--- OUTSIDE RECORDS SUMMARY | 2025-01-08 08:54 | XMS_ITS | Clinical Summary ---
Author Organization [facility] Address [address] [place] [address] Care Team Providers Care Supervisor Stitching Department Name Role Phone Unavailable Primary Care Provider [...]
--- OUTSIDE RECORDS SUMMARY | 2025-01-08 08:54 | XMS_ITS | Clinical Summary ---
Author Organization [facility] Address [address] [place] [address] Care Team Providers Care Plate Furnace Operator Name Role Phone Unavailable Primary Care Provider [...]
== END 2025-01-08 08:59 | disposition home or self-care (01) ==
LOC: HO.PMC 08:38
PROVIDERS: PCP Internal Medicine; Visit Provider Anesthesiology
DX: G89.4 Chronic pain syndrome (principal); M96.1 Postlaminectomy syndrome, not elsewhere classified; Z45.1 Encounter for adjustment and management of infusion pump
CPT/HCPCS: 95991; 99213

== ENCOUNTER → 2025-01-08 08:38 | Outpatient (BNVA) | payer MEDICARE, OTHER, SELFPAY | PROVIDERS: PCP Internal Medicine; Visit Provider Anesthesiology | DX: M96.1 Postlaminectomy syndrome, not elsewhere classified (principal); G89.4 Chronic pain syndrome; Z96.89 Presence of other specified functional implants; Z79.899 Other long term (current) drug therapy | CPT/HCPCS: 99212 ==

== ENCOUNTER 2025-04-11 09:12 | Outpatient (AMB) | payer MEDICARE, OTHER, SELFPAY ==
[2025-04-11 09:16] VITALS: BP 124/57; PULSE 89; RESP 18; O2SAT 96; BMI 29.2
--- NOTE | 2025-04-11 09:16 | A.OFFVIS_ITS ---
Vital Signs 04/11/25 09:16 Height 6 ft 4 in Weight 240 lb BMI 29.2 BP 124/57 L Blood Pressure Location Lt brachial Position Sitting Respiration 18 Pulse 89 Pulse Oximetry (%) 96 Oxygen Delivery Method Room Air Intake Visit Reasons: ITDD Refill Per Dr. Godoy Malt House Supervisor Required: No Plasterer Apprentice: Plasterer Apprentice Present Accompanied by: kemi stokes Allergies No Known Allergies Allergy (Verified 04/11/25 09:17) HPI HPI ITDD Refill Per Dr. Godoy: Details: Patient presents for scheduled procedure. Denies any recent cough, cold, infection, fever or other significant changes in medical history since last office visit. [facility] Medical History (Updated 09/18/24 @ 13:33 by Ana Berrios RN) Implantable intrathecal infusion pump present Postoperative urinary retention Opioid dependence, uncomplicated Complex regional pain syndrome i of lower limb, bilateral Insomnia, unspecified Chronic pain disorder Postlaminectomy syndrome, not elsewhere classified Surgical History (Updated 09/20/24 @ 07:57 by Rosario Chi RN) History of surgery H/O knee surgery History of back surgery Social History Are you a primary healthcare network pricing consultant to a significant other at home: No Do you presently have visiting nurse or other home services: No Comment: Balance issues at home Patient Tobacco Use Status: Never used Tobacco Physical Exam Vital Signs: Last Vital Signs Pulse 89 04/11/25 09:16 Resp 18 04/11/25 09:16 BP 124/57 L 04/11/25 09:16 Pulse Ox 96 04/11/25 09:16 Oxygen Delivery Method Room Air 04/11/25 09:16 BMI result Body Mass Index 29.2 Office Procedures Details: The name and date of were verified, and informed consent was obtained for the procedure. The pump was interrogated, and the residual amount of fluid. 20 mL was expected. Patient was positioned supine on the bed and the area of the intrathecal pump was prepped with chloraprep. The fenestrated drape was sterilely applied over the area of the pump. Sterile gloves were worn and the aspiration system was assembled containing 2 22-gauge noncoring needle; the needle was connected to extension tubing which was connected to the 20-cc sterile syringe. The extension tubing was clamped. The pain pump was palpated under the skin in the patient's buttock. The needle was inserted through the skin and the central plug of the pain pump and fluid was aspirated. 20 mL of clear fluid were aspirated. After that, a new batch of medication was obtained. The admixture of Morphine 10mg/ml was premixed in two 20cc syringes by [facility] compounding pharmacy. The syringe was connected to the bacterial filter, and then connected to the extension tubing. After that, the medication in the syringe was slowly instilled into the pump with aspirations. The pump was updated per the latest parameters. The details of this program are available in the pump log that was saved and uploaded to the EMR. [id number] - Refill Procedure code (CPT) selection complete Assessment & Plan Assessment & Plan (1) Implantable intrathecal infusion pump present: Code(s): Z96.89 - Presence of other specified functional implants Category: Medical (2) Chronic pain disorder: Code(s): G89.4 - Chronic pain syndrome Category: Medical Plan S/p ITP refill. No changes to infusion parameters. Next refill in 6 months. Coding Level of Care Code Procedure Only Diagnoses Implantable intrathecal infusion pump present Z96.89 Chronic pain disorder G89.4 CPT Codes Intraethecal Drug Delivery System - CPT: 09259 - Refill ([id number])
--- OUTSIDE RECORDS SUMMARY | 2025-04-11 09:26 | XMS_ITS | Clinical Summary ---
Author Organization [facility] Address [address] [place] [address] Care Team Providers Care Sales Compensation Analyst Name Role Phone Unavailable Primary Care [...] Panel) 10/06/2023 Colorectal Cancer Screening: Colonoscopy 10/06/2023 Falls Risk Assessment 10/06/2023 Hepatitis C Screening 10/06/2023 Social Influencers of Health Screening 10/06/2023 COVID-19 Vaccine (1 - 2023-2 5 season) 2024 Depression Screening 09/11/2024 Influenza Vaccine (#1) 2025 RSV Immunization Adult Patie nts (1 [...]
--- OUTSIDE RECORDS SUMMARY | 2025-04-11 09:26 | XMS_ITS | Clinical Summary ---
Author Organization [facility] Address [address] [place] [address] Care Team Providers Care Outreach Team Member Name Role Phone Unavailable Primary Care Provider [...] 72 08/30/2023 1:39 PM EST Temperature 36.2 C (97.2 F) 08/30/2023 1:39 PM EST Respiratory Rate 16 08/30/2023 1:39 PM EST [...] 1 - PCV) 2015 Influenza Vaccine (#1) 2025 RSV Adult > 60+ Yrs or Pregn ant (1 - 1-dose 75+ series) 2025 Hepatitis B Vaccines Aged Out No long er eligible based on patient's age to complete this topic RSV Ped < 20 months Aged Out No longe r eligible based on patient's age to complete this topic
--- OUTSIDE RECORDS SUMMARY | 2025-04-11 09:26 | XMS_ITS | Clinical Summary ---
Author Organization [facility] Address [address] [place] [address] Care Team Providers Care Bit Sharpener Operator Name Role Phone Unavailable Primary Care [...]
--- OUTSIDE RECORDS SUMMARY | 2025-04-11 09:26 | XMS_ITS ---
Author Name [facility] Encounters Encounter Type Encounter Reason Primary Diagnosis Location Date Emergency Laceration without foreign body of other part of head, initial encounter Laceration without foreign body of other part of head, initial encounter [facility] 08/30/2023 Care Team Organization Name Specialty Phone Email Start Date End Da te [facility] 3 03/05/2025 [facility] 3 08/30/2023
== END 2025-04-11 09:55 | disposition home or self-care (01) ==
LOC: HO.PMC 09:12
PROVIDERS: PCP Internal Medicine; Visit Provider Internal Medicine
DX: G89.4 Chronic pain syndrome (principal); Z96.89 Presence of other specified functional implants
CPT/HCPCS: 62370

== ENCOUNTER → 2025-04-11 09:12 | Outpatient (BNVA) | payer MEDICARE, OTHER, SELFPAY | PROVIDERS: PCP Internal Medicine; Visit Provider Internal Medicine | DX: G89.4 Chronic pain syndrome (principal); Z96.89 Presence of other specified functional implants | CPT/HCPCS: 62370 ==

== ENCOUNTER 2025-05-14 14:23 | Outpatient (AMB) | payer MEDICARE, OTHER, SELFPAY ==
--- OUTSIDE RECORDS SUMMARY | 2025-05-14 16:41 | XMS_ITS | Clinical Summary ---
Author Organization [facility] Address [address] [place] [address] Care Team Providers Care Comparator Operator Name Role Phone Unavailable Primary Care [...]
--- OUTSIDE RECORDS SUMMARY | 2025-05-14 16:41 | XMS_ITS | Clinical Summary ---
Author Organization [facility] Address [address] [place] [address] Care Team Providers Care Reed Worker Name Role Phone Unavailable Primary Care Provider Unavailabl e Social History Tobacco Use Types Packs/Day Years Used Date Smoking Tobacco: Never Assessed Sex and Gender Information Value Date Recorded Sex Assigned at Not on file Legal Sex Male 3:55 PM EDT Gender Identity Not on file Sexual Orientation Not on file Plan of Treatment Health Maintenance Due Date Last Done Comments Advance Care Planning 1950 Hepatitis C Virus Screening 1950 DTaP/Tdap/Td Vaccines [...]
--- OUTSIDE RECORDS SUMMARY | 2025-05-14 16:41 | XMS_ITS | Clinical Summary ---
Author Organization [facility] Address [address] [place] [address] Care Team Providers Care Buckle Gluer Name Role Phone Unavailable Primary Care Provider [...] 10/06/2023 Social Influencers of Health Screening 10/06/2023 Depression Screening 09/11/2024 COVID-19 Vaccine ( - 2023-2 5 season) 2025 Influenza Vaccine (#1) 2025 RSV Immunization Adult [...]
== END 2025-05-14 14:51 | disposition home or self-care (01) ==
LOC: HO.HMGAL 14:23
PROVIDERS: PCP Internal Medicine; Visit Provider Registered Nurse Emergency
DX: J30.89 Other allergic rhinitis (principal)
CPT/HCPCS: 95117; 95165

== ENCOUNTER 2025-07-09 08:54 | Outpatient (AMB) | payer MEDICARE, OTHER, SELFPAY ==
--- NOTE | 2025-07-09 08:56 | A.OFFVIS_ITS ---
Vital Signs 07/09/25 08:58 Height 6 ft 4 in Weight 240 lb BMI 29.2 BP 130/71 Blood Pressure Location Lt brachial Position Supine Respiration 16 Pulse 86 Pulse Source Pulse Oximeter Pulse Oximetry (%) 96 Oxygen Delivery Method Room Air Intake Visit Reasons: Concerned about medication in Pain pump Sodium Chlorite Operator Required: No Accompanied by: Self / Same As Patient Allergies No Known Allergies Allergy (Verified 07/09/25 09:03) HPI Comments Details: Chris presents today in my office with the complains on constipation. He was in my office in the spring and at that time he was complaining on constipation. He tried diet modification, he tried OTC stool softeners, she tried Senokot those did not help he has constipation. Last time I prescribed him Movantik however even this pill did not help the constipation. Since Movantik is peripherally acting opioid antagonist I believe his constipation needs to be addressed by primary care physician or corduroy cutter operator. Unlikely his constipation is a result of intrathecal morphine. I told the patient to go to corduroy cutter operator or primary care physician to resolve this issue. 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 She reports that pain in bilateral lower extremity started in 2018 after a chiropractor perform some sort of rema pulation on his back. Even before that he was suffering from postlaminectomy syndrome which was treated in [place] with intrathecal pain pump. His pump is 6 years old and due to be replaced in fall of 2023. He reports that he can not sleep normally can not do activities of daily living can not take care of himself can not function normally he is retired individual. He reports that he needs walker occasionally for ambulation. He reports that most comfortable position for him is in the left hand side in the bed and he also reports that when he is sitting or standing his pain in bilateral lower extremities and unbearable.He currently onadmixture of Morphine 10 mg/ ml and 30 mg of bupivacaine, as well as clonidine 650 mcg per ml. He receives continuous infusion of morphine 1.835 mg per day and corresponding doses of the clonidine and bupivacaine. He does not have PTM device. He reports that PTM device make him ?addicted to morphine ?. Apparently he had multiple images of his lumbar spine done in [facility] last MRI was done in 2014. He reports that he is taking herbal or homeopathic treatments for his pain. He received multiple nerve blocks epidurals and apparently he had 2 trials of spinal cord stimulator with [facility] pain management. He reports past medical history of peripheral arterial disease with status post stent in the left femoral artery, he has prostate problem arthritis. His past surgical history significant for left total knee replacement in 2008. He had surgery for back fusion in 2009 and he reported cranial surgery in 2008. He is currently taking Ambien diazepam bethanechol and lamotrigine. He denies smoking cigarettes admits occasional rare take of alcohol drinks decaffeinated coffee and denies recreational drugs. [facility] Medical History (Updated 09/18/24 @ 13:33 by Ana Berrios RN) Implantable intrathecal infusion pump present Postoperative urinary retention Opioid dependence, uncomplicated Complex regional pain syndrome i of lower limb, bilateral Insomnia, unspecified Chronic pain disorder Postlaminectomy syndrome, not elsewhere classified Surgical History (Updated 09/20/24 @ 07:57 by Rosario Chi RN) History of surgery H/O knee surgery History of back surgery Social History Are you a primary urgent care physician to a significant other at home: No Do you presently have visiting nurse or other home services: No Comment: Balance issues at home Patient Tobacco Use Status: Never used Tobacco Review of Systems Const All systems reviewed & are unremarkable except as noted in HPI and below ENT Reports Normal hearing present Neuro Reports Normal hearing present, Denies Abnormal speech present, Denies confusion and Denies Sensory deficit (Neuro) Psych Denies confusion Physical Exam Vital Signs: Last Vital Signs Pulse 86 07/09/25 08:58 Resp 16 07/09/25 08:58 BP 130/71 07/09/25 08:58 Pulse Ox 96 07/09/25 08:58 Oxygen Delivery Method Room Air 07/09/25 08:58 BMI result Body Mass Index 29.2 Const General: No confusion Orientation/consciousness: No confusion Eyes General: appearance normal, both eyes and all related structures Pupils: Equal, round and reactive pupils present EOM: EOMs intact bilaterally Neck Neck: Yes full ROM Chest Chest palpation & inspection: normal inspection of the chest Resp Effort & Inspection: normal respiratory effort, able to speak in complete sentences, normal respiratory pattern, no audible wheezes and no cough Cardio Jugular venous distension: no JVD GI Inspection: Yes normal to inspection Back/Spine/Pelvis Other: He has very well-healed scar in inspection in the projection of the L4-5 and S1 vertebra spinous processes. He also has scar in the left lower abdomen in Pfannenstiel fashion evidence of 2nd fusion. He is in no obvious mild distress today he prefers to positioned himself flat on the examination table during the conversation. No tenderness on palpation in paraspinal spinal region lumbar spine. Mild tenderness on palpation in projection of the sacral bone. SLR is negative bilaterally. Asaf's test is negative bilaterally. Valsalva maneuver does not aggravate his pain. He denies incontinence with urine or stool. He denies urinary retention Neuro General: No confusion Cranial nerves: Yes Equal, round and reactive pupils present and Yes Normal hearing present Speech: No Abnormal speech present Gait exam (Neuro): Normal gait present Motor exam (neuro): 5/5 motor strength present throughout Sensory Exam: No Sensory deficit (Neuro) Extrem General: No pedal edema Psych Speech and movement: Normal speech and movement present Affect: normal affect Attitude: cooperative Thought process: Normal thought process present Thought content: Normal thought content present Insight: Good insight present (Psych) Judgement: Good judgement present (Psych) Assessment & Plan Assessment & Plan (1) Postlaminectomy syndrome: Code(s): M96.1 - Postlaminectomy syndrome, not elsewhere classified Category: Medical (2) Chronic pain disorder: Code(s): G89.4 - Chronic pain syndrome Category: Medical (3) Implantable intrathecal infusion pump present: Code(s): Z96.89 - Presence of other specified functional implants Category: Medical Plan: The pain pump was read however the doses were not changed. Believe that his constipation unlikely related to pain pump. Movantik did not help his constipation. Therefore he needs to see corduroy cutter operator. I explained this to the patient. Plan . Next appointment is on the pain pump refill. Coding Level of Care Code Est Pt Level 3 (90178) Diagnoses Postlaminectomy syndrome M96.1 Chronic pain disorder G89.4 Implantable intrathecal infusion pump present Z96.89
[2025-07-09 08:58] VITALS: BP 130/71; PULSE 86; RESP 16; O2SAT 96; BMI 29.2
--- OUTSIDE RECORDS SUMMARY | 2025-07-09 09:50 | XMS_ITS | Clinical Summary ---
Author Organization [facility] Address [address] [place] [address] Care Team Providers Care Manager Student Services Name Role Phone Unavailable Primary Care [...] Health Maintenance Due Date Last Done Comments Colorectal Cancer Screening: Colonoscopy 1950 DTaP,Tdap,and Td Vaccines (1 - Tdap) 1969 Pneumococcal Vaccine: 50+ Ye ars (1 of 1 - PCV) 2000 Zoster Vaccines (1 of 2) 2000 Abdominal Aortic Aneurysm (A AA) Screen 10/06/2023 Cholesterol Screening (Lipid Panel) 10/06/2023 Falls Risk Assessment 10/06/2023 Hepatitis C Screening 10/06/2023 Social Influencers of Health Screening 10/06/2023 Depression Screening 09/11/2024 COVID-19 Vaccine (1 - 2023-2 5 season) 2025 Influenza Vaccine [...]
--- OUTSIDE RECORDS SUMMARY | 2025-07-09 09:50 | XMS_ITS | Clinical Summary ---
Author Organization [facility] Address [address] [place] [address] Care Team Providers Care Wash Tank Tender Name Role Phone Unavailable Primary Care Provider [...]
--- OUTSIDE RECORDS SUMMARY | 2025-07-09 09:50 | XMS_ITS | Clinical Summary ---
Author Organization [facility] Address [address] [place] [address] Care Team Providers Care Workers Compensation Consultant Name Role Phone Unavailable Primary Care Provider [...] Vaccine ( - 2023-2 5 season) 2025 RSV Vaccine 50 years and old er and Patients (1 - 1-dose 75+ series) 2025 Hepatitis B Vaccines Aged Out No long er eligible based on patient's age to complete this topic
== END 2025-07-09 09:19 | disposition home or self-care (01) ==
LOC: HO.PMC 08:54
PROVIDERS: PCP Internal Medicine; Visit Provider Anesthesiology
DX: M96.1 Postlaminectomy syndrome, not elsewhere classified (principal); G89.4 Chronic pain syndrome; Z96.89 Presence of other specified functional implants
CPT/HCPCS: 99213

== ENCOUNTER → 2025-07-09 08:54 | Outpatient (BNVA) | payer MEDICARE, OTHER, SELFPAY | PROVIDERS: PCP Internal Medicine; Visit Provider Anesthesiology | DX: G89.4 Chronic pain syndrome (principal); M96.1 Postlaminectomy syndrome, not elsewhere classified; Z96.89 Presence of other specified functional implants | CPT/HCPCS: 99212 ==

== ENCOUNTER 2025-07-16 13:35 | Outpatient (AMB) | payer MEDICARE, OTHER, SELFPAY ==
--- OUTSIDE RECORDS SUMMARY | 2025-07-13 23:59 | XMS_ITS | Continuity of Care Document ---
Author Organization [facility] Address [address] [place] [id number] Care Team Providers Care Pack Press Operator Name Role Phone Kan HUNTER, Laine Rdz Primary Care Physician [place] [facility] [place]): 06/13/25 - 07/13/[address] [id number] Attending Physician: Milo Zimmer Admitting Physician: Milo Zimmer Referring Physician: Milo Zimmer Encounter Type: Triage Allergies, Adverse Reactions, Alerts No Known Allergies Immunizations Given and Recorded Vaccine Date Status Refusal Reason Pneumococcal Vaccine (oldterm) 09/20/08 Given Medications Ambien 10 mg oral tablet 1 tablet = 10 mg, By Mouth, Daily at bedtime, PRN Sleep, 0 Refills, Maintenance, 05/22/15 7:23:25 AMEDT, Tablet Start Date: 05/22/15 Status: Ordered Medication Dispense Status: Completed Total Allowed Fills: 1 Fills Dispensed: 0 aspirin 81 mg oral tablet 1 tablet = 81 mg, By Mouth, Daily, # 30 tablet, 0 Refills, Maintenance, 05/22/15 7:23:43 AM EDT, Tablet Start Date: 05/22/15 Status: Ordered Medication Dispense Status: Completed Quantity: 30.0 Unit: tablet Total Allowed Fills: 1 Fills Dispensed: 0 Bupivacaine Intraperitoneal, pump, 0 Refills, Maintenance, 06/20/18 9:41:16 AM EDT Start Date: 06/20/18 Status: Ordered Medication Dispense Status: Completed Total Allowed Fills: 1 Fills Dispensed: 0 Citalopram By Mouth, Daily, 0 Refills, Maintenance, 11/04/22 8:07:00 PM EST, Partial fill upon patient request if the prescription is for a schedule II opioid drug. Start Date: 11/04/22 Status: Ordered Medication Dispense Status: Completed Total Allowed Fills: 1 Fills Dispensed: 0 Compression Stockings See Instructions, # 6 each, Maintenance, surgical, calf length 20-30 mm Hg, 02/10/20 2:56:00 PM EDT, Compound Start Date: 02/10/20 Status: Ordered Medication Dispense Status: Completed Quantity: 6.0 Unit: each Total Allowed Fills: 1 Fills Dispensed: 0 Compression Stockings See Instructions, # 6 pair, Refills 1, Tot. Refills 1, Maintenance, surgical, knee length 20-30 mm Hg, 10/13/14 9:47:23 AM EST, Compound Start Date: 10/13/14 Status: Ordered Medication Dispense Status: Completed Quantity: 6.0 Unit: pair Total Allowed Fills: 2 Fills Dispensed: 0 Compression Stockings See Instructions, # 2 pair, Refills 2, Tot. Refills 2, Maintenance, surgical, calf length 20-30 mm Hg, 01/01/18 2:40:24 PM EDT, Compound Start Date: 01/01/18 Status: Ordered Medication Dispense Status: Completed Quantity: 2.0 Unit: pair Total Allowed Fills: 3 Fills Dispensed: 0 diazepam 5 mg oral tablet 5 mg, 1, tablet, By Mouth, 4 times a day, PRN, Refills 0, Maintenance, Spasm, 01/03/17 12:05:10 PM EDT Start Date: 01/03/17 Status: Ordered Medication Dispense Status: Completed Total Allowed Fills: 1 Fills Dispensed: 0 Finasteride By Mouth, Daily, 0 Refills, Maintenance, 11/04/22 8:07:00 PM EST, Partial fill upon patient request if the prescription is for a schedule II opioid drug. Start Date: 11/04/22 Status: Ordered Medication Dispense Status: Completed Total Allowed Fills: 1 Fills Dispensed: 0 lamotrigine 200 mg oral tablet 1 tablet = 200 mg, By Mouth, 2 times a day, # 60 tablet, 3 Refills, Maintenance, 05/12/17 2:11:20 PM EDT, Tablet, [id number] Start Date: 05/12/17 Stop Date: 09/09/17 Status: Ordered Medication Dispense Status: Completed Quantity: 60.0 Unit: tablet Total Allowed Fills: 4 Fills Dispensed: 0 Montelukast By Mouth, Daily, 0 Refills, Maintenance, 11/04/22 8:07:00 PM EST, Partial fill upon patient request if the prescription is for a schedule II opioid drug. Start Date: 11/04/22 Status: Ordered Medication Dispense Status: Completed Total Allowed Fills: 1 Fills Dispensed: 0 Morphine 0 Refills, Maintenance, 11/04/22 8:06:00 PM EST, Partial fill upon patient request if the prescription is for a schedule II opioid drug. Start Date: 11/04/22 Status: Ordered Medication Dispense Status: Completed Total Allowed Fills: 1 Fills Dispensed: 0 Omeprazole By Mouth, Daily, 0 Refills, Maintenance, 11/04/22 8:07:00 PM EST, Partial fill upon patient request if the prescription is for a schedule II opioid drug. Start Date: 11/04/22 Status: Ordered Medication Dispense Status: Completed Total Allowed Fills: 1 Fills Dispensed: 0 Problem List Condition Confirmation Course Effective Dates Status Health St atus Informant BPH (benign prostatic hypertrophy) Confirmed Active Intracranial tumor Confirmed 09/2008 Active OA (osteoarthritis), lower back Confirmed Active Sciatica Confirmed Active Varicose veins Confirmed Active Social History Social History Type Response Smoking Status Never smoker entered on: 10/13/14 Sex Male Sex Representation Male (finding) Patient Care team information Care Team Personnel Name: Laine Omer MD Position: [facility] Physician - Primary Care Member Role: PCP Address: [address] [place] [address] [facility] [place], [place] [address] Telecom: Name: Lizette Gold RN Position: [facility] RN Member Role: Primary Care Nurse Name: Clementine Littlejohn RN Position: [facility] RN Member Role: Primary Care Nurse Care Team Related Persons Name: RACIEL GARRIDO Insurance Providers Guarantor name: BRITANY STREETOVICH Health Plan Information #: 1 Payer: MEDICARE B Payer Identifier: ALEXUS Member Number: [id number] Group Number: NA Subscriber Identifier: NA Relationship to Subscriber: self Coverage Type: NA Coverage Verification Date: NA Telecom: NA Address: NA Health Plan Information #: 2 Payer: [facility] [employer] PL[employer] Payer Identifier: ALEXUS Member Number: [id number] Group Number: [id number] Subscriber Identifier: ALEXUS Relationship to Subscriber: self Coverage Type: Commercial Indemnity Coverage Verification Date: ALEXUS Telecom: ALEXUS Address: NA
--- OUTSIDE RECORDS SUMMARY | 2025-07-16 16:29 | XMS_ITS | Data Portability ---
Author Organization [place] - [facility] - Address [address] [place] [id number] Care Team Providers Care Waxing Machine Operator Helper Name Role Phone GISELLE SIMS Primary Care Provider GISELLE SIMS Referring Provider [phone] Assessment Encounter Date Assessment Date Assessment LastModified [...] By Organization Details Last Modified Time 05/11/2017 [id number] sciatica: care instructions Not available 05/12/2017 09:59:50 [...] XR, lumba r spine [facility] [address] [place] [address] Date of Keith e: Date/T pedrito Sharp jeimy: 1301 Locati on: Mo[facility] Name: LANNY WALKER CH : Acct Number : [id number] Phone #: [phone] Sig juany ___ Cristine beatty MD: [...] overly ing L5. Additi onally there is commercial portfolio manager ior spinal fusion hardwa re with pedicl e screws at L4, and S1. The orthop edic hardwa re is intact . There is no eviden ce of spondy lolist hesis of the lumbar spine from flexio n to extens ion. Of note howeve r, it is diffic ult to visual ize the inferi or commercial portfolio manager ior margin of L5 verteb josafat due [...] 1514 Patien t accoun t number : [phone] Orderi ng physic leo: John Clarke Other provid ers: John Clarke , , , Physic leo Non Staff, John Clarke , Physic leo Non Staff, John Clarke [facility] (Scheduling Dept) [address] [place] [address], [id number], 05/11/2017 16:17:01 Result Notes Documentation Provider Name and Address Organization Details Recorded Time Xr, Lumbar Spine : [facility] Department of Imaging Services [place] [id number] Date of Service: 05/10/17 Date/Time Completed: 05/10/17 1301 Location: [facility] Name: BRITANY LIN : 50 Acct Number: [id number] Phone #: Signed Requesting MD: Keegan Clarke Results: Exam: XR SPINE LUMB W/MIN 6V BENDING Signs/Symptoms: LOW BACK PAIN HISTORY:66-year-old male with lower back pain. TECHNIQUE: AP, bilateral oblique, neutral lateral, flexed lateral, and extended lateral views of the lumbar spine were obtained. COMPARISON(S): None. FINDINGS: There is evidence for a vascular stent graft involving the proximal left iliac artery. Multiple small surgical clips are seen around this on the left overlying L5. Additionally there is posterior spinal fusion hardware with pedicle screws at L4, and S1. The orthopedic hardware is intact. There is no evidence of spondylolisthesis of the lumbar spine from flexion to extension. Of note however, it is difficult to visualize the inferior posterior margin of L5 vertebrae due to overlying bony structures, but as aforementioned, even with this limitation, there does not appear to be evidence for subluxation from flexion to extension. There is severe L4-L5 and L5-S1 disc space narrowing. There is also severe L4-L5 and L5-S1 facet joint space narrowing. There is preservation in height of the L3-L4 disc space. Remaining disc space heights are preserved as well. Vertebral body heights are preserved also. There is no evidence of any osseous lesion. IMPRESSION: NO EVIDENCE OF SPONDYLOLISTHESIS, AND WITH FLEXION AND EXTENSION, THERE IS NO EVIDENCE TO SUGGEST ANY SUBLUXATION. Transcribed: 05/10/17 1412 Report [id number] Copies to: Keegan Clarke Interpreting Physician: Ansley Gifford Approved Electronically: Ansley Gifford 05/10/17 1514 Patient Ordering physician: Keegan Clarke Other providers: Keegan Clarke, , , Physician Non Staff, Keegan Clarke, Physician Non Staff, Keegan Clarke MD [address] [place] [address], [phone], [place] [facility] 05/11/2017 16:17:01 Procedures Surgical History Date Name Laterality Status Provider Name and Address Organization Details Recorded Time 5 General Surgery completed Keegan Clarke MD [address] [place] [address], [phone], [place] [facility] 04/11/2017 14:34:18 0 Brain Surgery completed Keegan Clarke MD [address] [place] [address], [phone], [place] [facility] 04/11/2017 14:26:47 0 Lumbar Spine Surgery completed Keegan Clarke MD [address] [place] [address], [phone], [place] [facility] 04/11/2017 14:29:18 0 Knee Surgery completed Keegan Clarke MD [facility],[address] [place] [address], [place], [phone], [place] [facility] 04/11/2017 14:31:15 1 Orthopedic Surgery completed Keegan Clarke MD [address] [place] [address],[address] [place] [address], [place], [phone], [place] [facility] 04/11/2017 15:00:46 6 Knee Surgery completed Keegan Clarke MD [address] [place] [address],[address] [place] [address], [place], [phone], [place] [facility] 04/11/2017 15:01:09 0 Lumbar Spine Surgery completed Keegan Clarke MD [address] [facility],[address] [place] [address], [place], [phone], [place] [facility] 04/11/2017 14:27:53 Orthopedic Surgery completed Keegan Clarke MD [address] [facility],[address] [place] [address], [place], [phone], [place] [facility] 05/11/2017 11:37:30 Imaging Results None recorded. Procedure Notes None recorded. Medical Equipment None [...] Body mass index (BMI) Body weight Systolic And Diastolic Provider Name and Address Organization Details Last Updated DateTime 04/11/2017 193.04 cm 26.8 kg/m2 03204.32 g 125/82 mm[Hg] Angela Wright [place] [facility] 04/11/2017 14:03:44 Social History Question Answer Notes LastModified by Organizat ion Details LastModified Time Tobacco Smoking Status Never Smoker Angela shea [place] [facility] 04/11/2017 14:03:57 Accident Related Injury No Information not available 04/11/2017 Do You Have An Advance Directive? No Information not available 04/11/2017 Auto Related Injury? No Information not available 04/11/2017 Currently No Information not available 04/11/2017 Diabetes No Information no t available 04/11/2017 What Type Of Diet Are You Following? REGULAR Information not available 04/11/2017 Family History Of Heart Disease? No Information not available 04/11/2017 Have There Been Any Changes To Your Family Or Social Situation? No Information not available 04/11/2017 High Blood Pressure No Information [...] Information not available 04/11/2017 Do You Have Difficulty Walking Or Climbing Stairs? Yes Information not available 04/11/2017 Sex: Unknown Functional Status Question Answer Note LastModified by Organizat ion Details LastModified Time Do you use any illicit or recreational drugs? No Information not available 04/11/2017 What is your level of alcohol consumption? Occasional Information not available 04/11/2017 Are you currently employed? No Information not available 04/11/2017 Do you have difficulty doing errands alone? Yes Information not available 04/11/2017 Do you have difficulty dressing, bathing, grooming, or toileting? No Information not available 04/11/2017 What is [...] Diagnosis SNOMED-CT Code Diagnosis ICD10 Code Diagnosis IMO Codes Diagnosis Note [id number] Keegan Clarke MD Main Office [address] [place] [phone] 05/11/2017 10:58:24 05/12/2017 10:18:38 Lumbar post-laminectomy syndrome 537467051 M96.1 INTRACTABL E PAIN -06/20 Sciatica 68593392 M54.32 INTRACTABL E PAIN, LEFT WITH LLE WEAKNESS. Chronic in tractable pain 062480925 G89.29 LOW BACK Health Concerns Section Related Observation LastModified by Organization Detai ls LastModified Time None Recorded Concern Status LastModified by Organization Details LastModified Time None Recorded Advance Directives Directive N: Payers Insurance Date Sequence Insurance Name Policy Number Policy Amato Covered Member ID Amato Member ID Guarantor Name 06/11/2017 1 MEDICARE B-NM: [employer] Britany Lin [id number] Britany Lin 06/12/2017 2 [employer] (INDEMNITY) [id number] Britany Lin [id number] Britany Lin Notes Date Note Type Note Provider Name and Address Organization Details Recorded Time 04/11/2017 text/html ROS as noted in the HPI 66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 IN 1989 LUMBAR DISC EXCISION AT L4/5, L5/S1 FOR LBP AND SACRUM PAIN; NO SCIATICA. SURGY. AT [facility], BY NEUROSURGEON; NOT SEEN BY MD AGAIN, AND PER PATIENT HAD SEVERE LBP AND TOOK 2 YRS BEFORE HE COULD SIT. 5 MOS. SUBSEQ. HE SAW DR. 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 HE THEN IMPROVED WITH WALKING, AND P.T. IMPROVED AND ABLE TO WALK AND SIT/STAND BY 1992. HAD 2ND TKR LAFT KNEE, IN 2009, AND DOING WELL AND WITH P.T. AND DEVELOPED BILATERAL LEG PAIN AND INTO BACK - HE THINKS THIS MIKEL BE DUE TO HIM OVER-EXERCISING, AND STRETCHING THE SCAR TISSUE AT BACK. DID EXTENSIVE P.T. INCL. WATER THERAPY, AND SWIMMING AND IMPROVED. STOPPED SWIMMING LEFT ANKLE STARTED TO HURT. DX. ARTHRITIS AND LEFT SCIATICA. SAW ORTHO. HAD MRI IN 2016 OF LS SPINE +/- AND THIS SHOWED NO SPINAL STENOSIS OR HNP. HAD 2014, DEVELOPED LEFT GROIN BLOOD CLOT AT ILIAC VESSEL, AND HAD EMBOLECTOMY/STENT. IN 2014/2015, SAW PROLOTHERAPIST, AND HAD CAUDAL INJECTIONS WITH STEROID, AND NO BENEFIT. HE THEN HAD MANIPULATION F HIS BACK BY THIS THERAPIST. THEN DEVELOPED LOW BACK, SACRUM AND BUTTOCK PAIN, LEFT>RIGHT. NOW BEST WHEN LYING 3/4 ON STOMACH. NOW 8-9/10 PAIN CAN GO TO 10/10. 'I ONLY DON'T HURT WHEN I' ASLEEP.' IS UNABLE TO WALK, 3-5 FEET.; USES CRUTCHES TO WALK AND LLE NON-WEIGHT BEARING. HAS A WALKER. IS ABLE TO HELP HIM WITH ADL. IS ABLE TO DO MOST ADL. UNABLE TO DO ANY PHYSICAL ACTIVITY DUE TO LEFT ANKLE PAIN. HAS PAIN AT DORSAL FOOT AND SOLE PAIN; BILATERAL ACHILLES PAIN ALSO. CAN SIT FOR 1 MIN; SLOT FLOOR ATTENDANT POSITION WITH LLE NWB, AND STANDS ON RLE FOR 1 MIN; WALKING WITH CRUTCHES/WALKER LLE NWB, BUT THAT HURTS AT LOW BACK LIFTS LLE OFF GROUND. HAS HAD DCS TRIAL, AND NOT SUCCESSFUL, SO D/CD. Not Available Not Available Not Available 05/11/2017 text/html ROS as noted in the HPI 66 Y.O. WITH CHRONIC INTRACTABLE PAIN WITH MULTIPLE LS SPINE OPERATIONS, AND FAILED BACK SYNDROME, AND FAILED WITH ADEQUATE CONTROL OF HIS CHRONIC INTRACTABLE LBP/LLE PAIN. PCP NOTE DETAILS THAT AND THAT TRIAL OF IT NARCOTIC RX INDICATED, AT THIS STAGE. Keegan Clarke MD [address] [facility],[address]RD FLOOR, [place], [address], [place] [facility] 05/11/2017 16:23:53
--- OUTSIDE RECORDS SUMMARY | 2025-07-16 16:29 | XMS_ITS | Clinical Summary ---
Author Organization [facility] Address [address] [place] [address] Care Team Providers Care Electronic Coils Supervisor Name Role Phone Unavailable Primary Care Provider [...]
--- OUTSIDE RECORDS SUMMARY | 2025-07-16 16:29 | XMS_ITS | Clinical Summary ---
Author Organization [facility] Address [address] [place] [address] Care Team Providers Care Assembler Fitter Name Role Phone Unavailable Primary Care Provider [...]
== END 2025-07-16 13:36 | disposition home or self-care (01) ==
LOC: HO.HMGAL 13:35
PROVIDERS: PCP Internal Medicine; Visit Provider Registered Nurse Emergency
DX: J30.89 Other allergic rhinitis (principal)
CPT/HCPCS: 95117; 95165

== ENCOUNTER 2025-07-31 13:23 | Outpatient (AMB) | payer MEDICARE, OTHER, SELFPAY ==
--- NOTE | 2025-07-31 13:25 | MHC.OFFVIS ---
Vital Signs 07/31/25 13:27 Height 6 ft 4 in Weight 240 lb BMI 29.2 BP 135/58 L Blood Pressure Location Lt brachial Position Supine Respiration 16 Pulse 90 Pulse Source Pulse Oximeter Pulse Oximetry (%) 99 Oxygen Delivery Method Room Air Intake Visit Reasons: Pain Pump Adjustment Fly Worker Required: No Accompanied by: Self / Same As Patient Allergies No Known Allergies Allergy (Verified 07/31/25 13:29) HPI Comments Details: Chris presents today in my office with the the request to lower the dose of the medication in his pain pump. He states my body is weird. I feel weak with the higher doses of the medication. I decided to decrease the medication 15%. See the report as below. 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 She reports that pain in bilateral lower extremity started in 2018 after a chiropractor perform some sort of manipulation on his back. Even before that he was suffering from postlaminectomy syndrome which was treated in [place] with intrathecal pain pump. His pump is 6 years old and due to be replaced in fall of 2023. He reports that he can not sleep normally can not do activities of daily living can not take care of himself can not function normally he is retired individual. He reports that he needs walker occasionally for ambulation. He reports that most comfortable position for him is in the left hand side in the bed and he also reports that when he is sitting or standing his pain in bilateral lower extremities and unbearable.He currently onadmixture of Morphine 10 mg/ ml and 30 mg of bupivacaine, as well as clonidine 650 mcg per ml. He receives continuous infusion of morphine 1.835 mg per day and corresponding doses of the clonidine and bupivacaine. He does not have PTM device. He reports that PTM device make him ?addicted to morphine ?. Apparently he had multiple images of his lumbar spine done in [facility] last MRI was done in 2014. He reports that he is taking herbal or homeopathic treatments for his pain. He received multiple nerve blocks epidurals and apparently he had 2 trials of spinal cord stimulator with [facility] pain management. He reports past medical history of peripheral arterial disease with status post stent in the left femoral artery, he has prostate problem arthritis. His past surgical history significant for left total knee replacement in 2008. He had surgery for back fusion in 2009 and he reported cranial surgery in 2008. He is currently taking Ambien diazepam bethanechol and lamotrigine. He denies smoking cigarettes admits occasional rare take of alcohol drinks decaffeinated coffee and denies recreational drugs. [facility] Medical History (Updated 09/18/24 @ 13:33 by Ana Berrios RN) Implantable intrathecal infusion pump present Postoperative urinary retention Opioid dependence, uncomplicated Complex regional pain syndrome i of lower limb, bilateral Insomnia, unspecified Chronic pain disorder Postlaminectomy syndrome, not elsewhere classified Surgical History (Updated 09/20/24 @ 07:57 by Rosario Chi RN) History of surgery H/O knee surgery History of back surgery Social History Are you a primary nursing care attendant to a significant other at home: No Do you presently have visiting nurse or other home services: No Comment: Balance issues at home Patient Tobacco Use Status: Never used Tobacco Review of Systems Const All systems reviewed & are unremarkable except as noted in HPI and below ENT Reports Normal hearing present Neuro Reports Normal hearing present, Denies Abnormal speech present, Denies confusion and Denies Sensory deficit (Neuro) Psych Denies confusion Physical Exam Vital Signs: Last Vital Signs Pulse 90 07/31/25 13:27 Resp 16 07/31/25 13:27 BP 135/58 L 07/31/25 13:27 Pulse Ox 99 07/31/25 13:27 Oxygen Delivery Method Room Air 07/31/25 13:27 BMI result Body Mass Index 29.2 Const General: No confusion Orientation/consciousness: No confusion Eyes General: appearance normal, both eyes and all related structures Pupils: Equal, round and reactive pupils present EOM: EOMs intact bilaterally Neck Neck: Yes full ROM Chest Chest palpation & inspection: normal inspection of the chest Resp Effort & Inspection: normal respiratory effort, able to speak in complete sentences, normal respiratory pattern, no audible wheezes and no cough Cardio Jugular venous distension: no JVD GI Inspection: Yes normal to inspection Back/Spine/Pelvis Other: He has very well-healed scar in inspection in the projection of the L4-5 and S1 vertebra spinous processes. He also has scar in the left lower abdomen in Pfannenstiel fashion evidence of 2nd fusion. He is in no obvious mild distress today he prefers to positioned himself flat on the examination table during the conversation. No tenderness on palpation in paraspinal spinal region lumbar spine. Mild tenderness on palpation in projection of the sacral bone. SLR is negative bilaterally. Asaf's test is negative bilaterally. Valsalva maneuver does not aggravate his pain. He denies incontinence with urine or stool. He denies urinary retention Neuro General: No confusion Cranial nerves: Yes Equal, round and reactive pupils present and Yes Normal hearing present Speech: No Abnormal speech present Gait exam (Neuro): Normal gait present Motor exam (neuro): 5/5 motor strength present throughout Sensory Exam: No Sensory deficit (Neuro) Extrem General: No pedal edema Psych Speech and movement: Normal speech and movement present Affect: normal affect Attitude: cooperative Thought process: Normal thought process present Thought content: Normal thought content present Insight: Good insight present (Psych) Judgement: Good judgement present (Psych) Assessment & Plan Assessment & Plan (1) Postlaminectomy syndrome: Code(s): M96.1 - Postlaminectomy syndrome, not elsewhere classified Category: Medical (2) Chronic pain disorder: Code(s): G89.4 - Chronic pain syndrome Category: Medical (3) Implantable intrathecal infusion pump present: Code(s): Z96.89 - Presence of other specified functional implants Category: Medical Plan: Reports weakness with the pump he requests decrease of the dose. I decrease the dose of the pump 15%. Plan . Next appointment is on the pain pump refill in 1 month we would need to refill his pump with 10 mg preservative-free normal saline total volume 40 mL. Coding Level of Care Code Est Pt Level 3 (43608) Diagnoses Postlaminectomy syndrome M96.1 Chronic pain disorder G89.4 Implantable intrathecal infusion pump present Z96.89
[2025-07-31 13:27] VITALS: BP 135/58; PULSE 90; RESP 16; O2SAT 99; BMI 29.2
--- OUTSIDE RECORDS SUMMARY | 2025-07-31 18:52 | XMS_ITS | Data Portability ---
Author Organization [place] - [facility] - Address [address] [place] [address] Care Team Providers Care Harp Regulator Name Role Phone GISELLE SIMS Primary Care Provider [phone] GISELLE SIMS Referring Provider [phone] Assessment Encounter Date Assessment Date Assessment LastModified [...] By Organization Details Last Modified Time 05/11/2017 [id number] sciatica: care instructions Not available 05/12/2017 09:59:50 [...] XR, lumba r spine [facility] Depart ment of Jose Parker [facility] Hospit al [address] [place] [address] Date of Keith e: Date/T pedrito Sharp jeimy: 1301 Locati on: Mois[facility] gamble [facility] Name: LANNY WALKER CH : Acct Number : [id number] Phone #: [phone] Sig [...] overly ing L5. Additi onally there is job hand ior spinal fusion hardwa re with pedicl e screws at L4, and S1. The orthop edic hardwa re is intact . There is no eviden ce of spondy lolist hesis of the lumbar spine from flexio n to extens ion. Of note howeve r, it is diffic ult to visual ize the inferi or job hand ior margin of L5 verteb josafat due [...] 1514 Patien t accoun t number : [id number] Orderi ng physic leo: John Clarke Other provid ers: John Clarke , , , Physic leo Non Staff, John Clarke , Physic leo Non Staff, John Clarke [facility] (Scheduling Dept) [address] [place] [address], [address], 05/11/2017 16:17:01 Result Notes Documentation Provider Name and Address Organization Details Recorded Time Xr, Lumbar Spine : [facility] Department of Imaging Services [place] 2005102 Date of Service: 05/10/17 Date/Time Completed: 05/10/17 1301 Location: [facility] Name: BRITANY LIN : 50 Acct Number: [id number] Phone #: Signed Requesting MD: Keegan Clarke [...] SUGGEST ANY SUBLUXATION. Transcribed: 05/10/17 1412 Report [id number] Copies to: Keegan Clarke Interpreting Physician: Ansley Gifford Approved Electronically: Ansley Gifford 05/10/17 1514 Patient Ordering physician: Keegan Clarke Other providers: Keegan Clarke, , , Physician Non Staff, Keegan Clarke, Physician Non Staff, Keegan Clarke MD [address] [place] [address], [address], [place] [facility] 05/11/2017 16:17:01 Procedures Surgical History Date Name Laterality Status Provider Name and Address Organization Details Recorded Time 5 General Surgery completed Keegan Clarke MD [address] [place] [address], [address], [place] [facility] 04/11/2017 14:34:18 0 Brain Surgery completed Keegan Clarke MD [address] [place] [address], [address], [place] [facility] 04/11/2017 14:26:47 0 Lumbar Spine Surgery completed Keegan Clarke MD [address] [place] [address], [address], [place] [facility] 04/11/2017 14:29:18 0 Knee Surgery completed Keegan Clarke MD [facility],[address] [place] [address], [place], [address], [place] [facility] 04/11/2017 14:31:15 1 Orthopedic Surgery completed Keegan Clarke MD [address] [place] [address],[address] [place] [address], [place], [address], [place] [facility] 04/11/2017 15:00:46 6 Knee Surgery completed Keegan Clarke MD [address] [place] [address],[address] [place] [address], [place], [address], [place] [facility] 04/11/2017 15:01:09 0 Lumbar Spine Surgery completed Keegan Clarke MD [facility],[address] [place] [address], [place], [address], [place] [facility] 04/11/2017 14:27:53 Orthopedic Surgery completed Keegan Clarke MD [facility],[address] [place] [address], [place], [address], [place] [facility] 05/11/2017 11:37:30 Imaging Results None recorded. Procedure [...] Updated DateTime 04/11/2017 193.04 cm 26.8 kg/m2 10004.32 g 125/82 mm[Hg] Angela [place] - [facility] 04/11/2017 14:03:44 Social History Question Answer Notes LastModified by Organizat ion Details LastModified Time Tobacco Smoking Status Never Smoker Angela shea [place] - [facility] 04/11/2017 14:03:57 Accident Related Injury No [...] Multiple Sclerosis N Meningitis N Heart Attack (SD) N Ulcers N Neurological Problems N Diabetes [...] ICD10 Code Diagnosis IMO Codes Diagnosis Note [id number] Keegan Clarke MD Main Office [address] [place] [address] 05/11/2017 10:58:24 05/12/2017 10:18:38 Lumbar post-laminectomy syndrome 172599776 M96.1 INTRACTABL E PAIN -06/20 Sciatica 70697063 M54.32 INTRACTABL E PAIN, LEFT WITH LLE WEAKNESS. Chronic in tractable pain 140192164 G89.29 LOW BACK Health Concerns Section Related Observation LastModified by Organization Detai ls LastModified Time None Recorded Concern Status LastModified by Organization Details LastModified Time None Recorded Advance Directives Directive N: Payers Insurance Date Sequence Insurance Name Policy Number Policy Amato Covered Member ID Amato Member ID Guarantor Name 06/11/2017 1 [place]IC[place]: [employer] Britany Lin [id number] Britany Lin 06/12/2017 2 [facility] ([facility]DEMNITY) [id number] Britany Lin [id number] Britany Lin Notes Date Note Type Note Provider Name and Address Organization Details Recorded Time 04/11/2017 text/html ROS as noted in the HPI 66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 IN 1989 LUMBAR DISC EXCISION AT L4/5, L5/S1 FOR LBP AND SACRUM PAIN; NO SCIATICA. SURGY. AT [facility], BY NEUROSURGEON; NOT SEEN BY MD AGAIN, AND PER PATIENT HAD SEVERE LBP AND TOOK 2 YRS BEFORE HE COULD SIT. 5 MOS. SUBSEQ. [place] SAW DR. 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 HE [...] PAIN ALSO. CAN SIT FOR 1 MIN; ROOMING HOUSE INSPECTOR POSITION WITH LLE NWB, AND STANDS ON [...] AT THIS STAGE. Keegan Clarke MD [address] [facility],3RD FLOOR, [place], [address], [place] [facility] 05/11/2017 16:23:53
--- OUTSIDE RECORDS SUMMARY | 2025-07-31 18:52 | XMS_ITS | Clinical Summary ---
Author Organization [facility] Address [address] [place] [address] Care Team Providers Care Client Advocate Name Role Phone Unavailable Primary Care Provider [...]
--- OUTSIDE RECORDS SUMMARY | 2025-07-31 18:52 | XMS_ITS | Clinical Summary ---
Author Organization [facility] Address [address] [place] [address] Care Team Providers Care Construction Operations Manager Name Role Phone Unavailable Primary Care [...]
== END 2025-07-31 13:49 | disposition home or self-care (01) ==
LOC: HO.PMC 13:24
PROVIDERS: PCP Internal Medicine; Visit Provider Anesthesiology
DX: M96.1 Postlaminectomy syndrome, not elsewhere classified (principal); G89.4 Chronic pain syndrome; Z96.89 Presence of other specified functional implants; Z45.1 Encounter for adjustment and management of infusion pump
CPT/HCPCS: 95991

== ENCOUNTER → 2025-07-31 13:23 | Outpatient (BNVA) | payer MEDICARE, OTHER, SELFPAY | PROVIDERS: PCP Internal Medicine; Visit Provider Anesthesiology | DX: Z45.1 Encounter for adjustment and management of infusion pump (principal); G90.523 Complex regional pain syndrome I of lower limb, bilateral; G89.4 Chronic pain syndrome; M96.1 Postlaminectomy syndrome, not elsewhere classified; Z97.8 Presence of other specified devices; Z79.891 Long term (current) use of opiate analgesic | CPT/HCPCS: 95991 ==

== ENCOUNTER 2025-08-04 11:20 | Outpatient (AMB) | payer MEDICARE, OTHER, SELFPAY ==
--- OUTSIDE RECORDS SUMMARY | 2025-08-04 14:52 | XMS_ITS | Clinical Summary ---
Author Organization [facility] Address [address] [place] [address] Care Team Providers Care Amortization Schedule Clerk Name Role Phone Unavailable Primary Care Provider [...]
--- OUTSIDE RECORDS SUMMARY | 2025-08-04 14:52 | XMS_ITS | Clinical Summary ---
Author Organization [facility] it Address [address] [place] [address] Care Team Providers Care Casino Slot Supervisor Name Role Phone Unavailable Primary Care [...] Depression Screening 09/11/2024 COVID-19 Vaccine (1 - 2024-2 6 season) 2025 Influenza Vaccine (#1) 2025 RSV [...]
--- OUTSIDE RECORDS SUMMARY | 2025-08-04 14:52 | XMS_ITS | Clinical Summary ---
Author Organization [facility] Address [address] [place] [address] Care Team Providers Care Red Cross Executive Director Name Role Phone Unavailable Primary Care Provider [...]
== END 2025-08-04 11:20 | disposition home or self-care (01) ==
LOC: HO.HMGAL 11:20
PROVIDERS: PCP Internal Medicine; Visit Provider Registered Nurse Emergency
DX: J30.89 Other allergic rhinitis (principal)
CPT/HCPCS: 95117; 95165

== ENCOUNTER 2025-08-13 09:42 | Outpatient (AMB) | payer MEDICARE, OTHER, SELFPAY ==
--- OUTSIDE RECORDS SUMMARY | 2025-08-13 10:47 | XMS_ITS | Clinical Summary ---
Author Organization [facility] Address [address] [place] [address] Care Team Providers Care Paint Sprayer Sandblaster Name Role Phone Unavailable Primary Care Provider [...]
--- OUTSIDE RECORDS SUMMARY | 2025-08-13 10:47 | XMS_ITS | Clinical Summary ---
Author Organization [facility] it Address [address] [place] [address] Care Team Providers Care Steel Cutter Name Role Phone Unavailable Primary Care Provider [...]
--- OUTSIDE RECORDS SUMMARY | 2025-08-13 10:47 | XMS_ITS | Clinical Summary ---
Author Organization [facility] Address [address] [place] [address] Care Team Providers Care House Mother Name Role Phone Unavailable Primary Care Provider [...]
== END 2025-08-13 09:43 | disposition home or self-care (01) ==
LOC: HO.HMGAL 09:42
PROVIDERS: PCP Internal Medicine; Visit Provider Registered Nurse Emergency
DX: J30.89 Other allergic rhinitis (principal)
CPT/HCPCS: 95117; 95165

== ENCOUNTER 2025-09-03 13:38 | Outpatient (AMB) | payer MEDICARE, OTHER, SELFPAY ==
--- OUTSIDE RECORDS SUMMARY | 2025-09-03 13:40 | XMS_ITS | Clinical Summary ---
Author Organization [facility] Address [address] [place] [address] Care Team Providers Care Field Ring Assembler Name Role Phone Unavailable Primary Care Provider [...]
--- OUTSIDE RECORDS SUMMARY | 2025-09-03 13:40 | XMS_ITS | Data Portability ---
Author Organization [place] - [facility] - Address [address] [place] [address] Care Team Providers Care Supervisor Lathing Name Role Phone GISELLE SIMS Primary Care Provider [phone] GISELLE SIMS Referring Provider Assessment Encounter Date [...] By Organization Details Last Modified Time 05/11/2017 14642 sciatica: care instructions Not available 05/12/2017 09:59:50 [...] XR, lumba r spine [facility] Depart ment of Jose Parker [facility] Hospit [facility] [address] [place] [address] Date of Keith e: Date/T pedrito Sharp jeimy: 1301 Locati on: Mo[facility] Name: LANNY WALKER CH : Acct Number : [id number] Phone #: [phone] Sig [...] overly ing L5. Additi onally there is cruise coordinator ior spinal fusion hardwa re with pedicl e screws at L4, and S1. The orthop edic hardwa re is intact . There is no eviden ce of spondy lolist hesis of the lumbar spine from flexio n to extens ion. Of note howeve r, it is diffic ult to visual ize the inferi or cruise coordinator ior margin of L5 verteb josafat due [...] 1514 Patien t accoun t number : [id number] Orderi ng physic leo: John Clarke Other provid ers: John Clarke , , , Physic leo Non Staff, John Clarke , Physic leo Non Staff, John Clarke [facility] (Scheduling Dept) [address] [place] [address], [address], 05/11/2017 16:17:01 Result Notes Documentation Provider Name and Address Organization Details Recorded Time Xr, Lumbar Spine : [facility] Department of Imaging Services [place] [id number] Date of Service: 05/10/17 Date/Time Completed: 05/10/17 1301 Location: [facility] Name: BRITANY LIN : 50 Acct Number: [id number] Phone #: Signed Requesting MD: Keegan Clarke [...] SUGGEST ANY SUBLUXATION. Transcribed: 05/10/17 1412 Report [id number] Copies to: Keegan Clarke Interpreting Physician: Ansley Gifford Approved Electronically: Ansley Gifford 05/10/17 1514 Patient Ordering physician: Keegan Clarke Other providers: Keegan Clarke, , , Physician Non Staff, Keegan Clarke, Physician Non Staff, Keegan Clarke MD [address] [place] [address], [address], [place] [facility] 05/11/2017 16:17:01 Procedures Surgical History Date Name Laterality Status Provider Name and Address Organization Details Recorded Time 5 General Surgery completed Keegan Clarke MD [address] [place] [address], [address], [place] [facility] 04/11/2017 14:34:18 0 Brain Surgery completed Keegan Clarke MD [address] [place] [address], [address], [place] [facility] 04/11/2017 14:26:47 0 Lumbar Spine Surgery completed Keegan Clarke MD [address] [place] [address], [address], [place] [facility] 04/11/2017 14:29:18 0 Knee Surgery completed Keegan Clarke MD [address] [facility],[address] [place] [address], [place], [address], [place] [facility] 04/11/2017 14:31:15 1 Orthopedic Surgery completed Keegan Clarke MD [address] [place] [address],[address] [place] [address], [place], [address], [place] [facility] 04/11/2017 15:00:46 6 Knee Surgery completed Keegan Clarke MD [address] [place] [address],[address] [place] [address], [place], [address], [place] [facility] 04/11/2017 15:01:09 0 Lumbar Spine Surgery completed Keegan Clarke MD [address] [facility],[address] [place] [address], [place], [address], [place] [facility] 04/11/2017 14:27:53 Orthopedic Surgery completed Keegan Clarke MD [address] [facility],[address] [place] [address], [place], [address], [place] [facility] 05/11/2017 11:37:30 Imaging Results None [...] Updated DateTime 04/11/2017 193.04 cm 26.8 kg/m2 52924.32 g 125/82 mm[Hg] Angela Wright [place] - [facility] 04/11/2017 14:03:44 Social History Question Answer Notes LastModified by Organizat ion Details LastModified Time Tobacco Smoking Status Never Smoker Angela shea [place] [facility] 04/11/2017 14:03:57 Accident Related Injury [...] Head Trauma/Injury N Depression N COPD N Lung Disease N Hypothyroidism N Pneumonia N Orthopedic Problems Y Spine Problems Y Headaches/Migraines N Obstructive Sleep Apnea N Anxiety Disorder N Autoimmune disease N Vision or Eye Problems N Arthritis N Developmental Problems N Congenital Anomalies N Cancer N Stroke N Neck Injury N Liver Disease N [place] N Other Sleep Disorders N Headaches N Fibromyalgia N Kidney Disease N Heart Problems N Heart Disease/Heart Problems N Parkinson's Disease N Hospitalizations N Migraines N Thyroid Problems N Brain Tumors Y Encephalitis N PTSD N Multiple Sclerosis N Meningitis N Ulcers N Heart Attack ([place]) N Neurological Problems N Diabetes N Bleeding [...] ICD10 Code Diagnosis IMO Codes Diagnosis Note 56531 Keegan Clarke MD Main Office [address] [place] [phone] 05/11/2017 10:58:24 05/12/2017 10:18:38 Lumbar post-laminectomy syndrome 118046160 M96.1 INTRACTABL E PAIN -06/20 Sciatica 71785369 M54.32 INTRACTABL E PAIN, LEFT WITH LLE WEAKNESS. Chronic in tractable pain 466025400 G89.29 LOW BACK Health Concerns Section Related Observation LastModified by Organization Detai ls LastModified Time None Recorded Concern Status LastModified by Organization Details LastModified Time None Recorded Advance Directives Directive N: Payers Insurance Date Sequence Insurance Name Policy Number Policy Amato Covered Member ID Amato Member ID Guarantor Name 06/11/2017 1 MEDICARE B-[place]: [employer] Britany Lin [id number] Britany Lin 06/12/2017 2 [facility] IN[facility] (INDEMNITY) [id number] Britany Lin [id number] Britany Lin Notes Date Note Type Note Provider Name and Address Organization Details Recorded Time 04/11/2017 text/html ROS as noted in the HPI 66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 IN 1989 LUMBAR DISC EXCISION AT L4/5, L5/S1 FOR LBP AND SACRUM PAIN; NO SCIATICA. SURGY. AT [facility], BY NEUROSURGEON; NOT SEEN BY MD AGAIN, AND PER PATIENT HAD SEVERE LBP AND TOOK 2 YRS BEFORE HE COULD SIT. 5 MOS. SUBSEQ. HE SAW DR. DOUGLASS IN [place], NEUROSURGEON, WHO OPERATED AT [facility] - HERNIATED DISC DIAGNOSED BY [...] PAIN ALSO. CAN SIT FOR 1 MIN; MECHANIST POSITION WITH LLE NWB, AND STANDS ON [...] AT THIS STAGE. Keegan Clarke MD [address] [facility],3RD FLOOR, [place], [address], [place] [facility] 05/11/2017 16:23:53
--- OUTSIDE RECORDS SUMMARY | 2025-09-03 13:40 | XMS_ITS | Clinical Summary ---
Author Organization [facility] Prior to 02/08/[address] [place] [address] Care Team Providers Care Family Helper Name Role Phone Unavailable Primary Care Provider [...]
--- OUTSIDE RECORDS SUMMARY | 2025-09-03 13:40 | XMS_ITS | Clinical Summary ---
Author Organization [facility] Address [address] [place] [address] Care Team Providers Care Associate Data Scientist Name Role Phone Unavailable Primary Care Provider [...] of 2) 2000 COVID-19 Vaccine ( - 2024-2 6 season) 2025 RSV Vaccine 50 years and old er and Patients (1 - 1-dose 75+ series) 2025 Hepatitis B Vaccines Aged Out No long er eligible based on patient's age to complete this topic
[2025-09-03 13:56] VITALS: BP 127/60; PULSE 65; RESP 16; O2SAT 95; BMI 29.2
--- NOTE | 2025-09-03 13:56 | A.OFFVIS_ITS ---
Vital Signs 09/03/25 13:56 Height 6 ft 4 in Weight 240 lb BMI 29.2 BP 127/60 Blood Pressure Location Lt brachial Position Supine Respiration 16 Pulse 65 Pulse Source Pulse Oximeter Pulse Oximetry (%) 95 Oxygen Delivery Method Room Air Intake Visit Reasons: ITDD Refill Maintenance Engineer Required: No Accompanied by: Self / Same As Patient Allergies No Known Allergies Allergy (Verified 09/03/25 13:57) [facility] Medical History (Updated 09/18/24 @ 13:33 by Ana Berrios RN) Implantable intrathecal infusion pump present Postoperative urinary retention Opioid dependence, uncomplicated Complex regional pain syndrome i of lower limb, bilateral Insomnia, unspecified Chronic pain disorder Postlaminectomy syndrome, not elsewhere classified Surgical History (Updated 09/20/24 @ 07:57 by Rosario Chi RN) History of surgery H/O knee surgery History of back surgery Social History Are you a primary rehab care assistant to a significant other at home: No Do you presently have visiting nurse or other home services: No Comment: Balance issues at home Patient Tobacco Use Status: Never used Tobacco Physical Exam Vital Signs: Last Vital Signs Pulse 65 09/03/25 13:56 Resp 16 09/03/25 13:56 BP 127/60 09/03/25 13:56 Pulse Ox 95 09/03/25 13:56 Oxygen Delivery Method Room Air 09/03/25 13:56 BMI result Body Mass Index 29.2 Assessment & Plan Assessment & Plan (1) Postlaminectomy syndrome: Code(s): M96.1 - Postlaminectomy syndrome, not elsewhere classified Category: Medical (2) Chronic pain disorder: Code(s): G89.4 - Chronic pain syndrome Category: Medical Plan: Intrathecal pump refill. THE PATIENT CAME TODAY IN the office FOR THE CHANGE OF THE MEDICATION IN her PAIN PUMP. The name and date of were verified and informed consent was obtained for the procedure. ?The pump was interrogated and the residual amount of fluid was found to be 12 mL. HE WAS POSITIONED supine on the bed AND THE AREA OF THE INTRATHECAL PUMP in his left mid abdomen WAS PREPPED WITH CHLORAPREP. The fenestrated drape was sterilely applied over the area of the pump. Sterile gloves were worn and of the aspiration system was assembled containing 2 in 22 gauge noncoring needle, the needle was connected to extension tubing which was connected to the 20 cc sterile syringe. The pain pump was palpated under the skin in the patient's right buttock area. The needle was inserted through the skin and the central plug of the pain pump and fluid was aspirated. The clear fluid was going into the syringe the total amount of the fluid was 12.1 mL .. After that a new batch? of medication was obtained which was containing morphine 10 milligrams/mL . The admixture was made in the two 20 cc syringes prepared by [facility] compounding pharmacy. The syringes were sequentially connected to the bacterial filter, and then connected to the extension tubing. After that the medication in the syringe was slowly instilled into the pump with aspirations at 35, 15 and 5 cc sevilla.? The pump was reprogrammed for the continuous doses of morphine 1.699 mg per day . (3) Implantable intrathecal infusion pump present: Code(s): Z96.89 - Presence of other specified functional implants Category: Medical Plan . Coding Level of Care Code Procedure Only Diagnoses Postlaminectomy syndrome M96.1 Chronic pain disorder G89.4 Implantable intrathecal infusion pump present Z96.89
== END 2025-09-03 13:59 | disposition home or self-care (01) ==
LOC: HO.PMC 13:38
PROVIDERS: PCP Internal Medicine; Visit Provider Anesthesiology
DX: M96.1 Postlaminectomy syndrome, not elsewhere classified (principal); G89.4 Chronic pain syndrome; Z96.89 Presence of other specified functional implants; Z45.1 Encounter for adjustment and management of infusion pump
CPT/HCPCS: 62370

== ENCOUNTER → 2025-09-03 13:38 | Outpatient (BNVA) | payer MEDICARE, OTHER, SELFPAY | PROVIDERS: PCP Internal Medicine; Visit Provider Anesthesiology | DX: M96.1 Postlaminectomy syndrome, not elsewhere classified (principal); G89.4 Chronic pain syndrome; Z96.89 Presence of other specified functional implants | CPT/HCPCS: 62370 ==